=== PATIENT | male | born 1960 | race Caucasian/White ===

== ENCOUNTER 2024-03-19 09:12 | Outpatient (OUT) | payer MEDICARE, SELFPAY ==
[2024-03-19 09:32] LABS: Basophils Percent Auto 0.4 % (0.2-2.0); Eosinophils Absolute Auto 0.2 10^3/uL (0.0-0.7); Eosinophils Percent Auto 2.7 % (0.9-7.0); Hematocrit 43.7 % (42.0-54.0); Hemoglobin 15.4 g/dL (14.0-18.0); Immature Granulocytes Abs Auto 0.05 10^3/uL (0.00-0.03); Immature Granulocytes Pct Auto 0.7 % (0.0-0.5); Lymphocytes Absolute Auto 1.8 10^3/uL (1.2-3.8); Lymphocytes Percent Auto 24.9 % (20.5-60.0); Mean Corpuscular HGB Conc 35.2 g/dL (29.9-35.2); Mean Corpuscular Volume 85.2 fL (80.0-94.0); Mean Platelet Volume 10.3 fL (9.5-13.5); Monocytes Absolute Auto 0.5 10^3/uL (0.3-0.8); Neutrophils Absolute Auto 4.8 10^3/uL (1.4-6.5); Neutrophils Percent Auto 64.3 % (43.0-75.0); Platelet Count 261 10^3/uL (150-450); Red Blood Count 5.13 10^6/uL (4.70-6.10); Red Cell Distribution Width 12.4 % (11.0-15.0); White Blood Count 7.4 10^3/uL (4.0-11.0)
[2024-03-19 09:49] LABS: Estimated Average Glucose 114 mg/dL; Glycohemoglobin A1C 5.6 % (4.5-6.2)
[2024-03-19 11:07] LABS: Alanine Aminotransferase 42 U/L (16-63); Albumin Globulin Ratio 1.2; Albumin Level 3.8 g/dL (3.4-5.0); Alkaline Phosphatase 82 U/L (46-116); Anion Gap 15.6; Aspartate Amino Transferase 22 U/L (15-37); BUN Creatinine Ratio 29.3; Bilirubin Total 0.5 mg/dL (0.2-1.0); Calcium 9.4 mg/dL (8.5-10.1); Carbon Dioxide 26.9 mmol/L (21.0-32.0); Chloride 104 mmol/L (98-107); Chol HDL Ratio 3.6; Cholesterol 196 mg/dL (<=200); Estimated GFR (African America >60 (>=60); Estimated GFR (Non-African Ame >60 (>=60); Globulin 3.2 g/dL; Glucose 95 mg/dL (74-106); HDL Cholesterol 55 mg/dL (40-60); LDL Cholesterol Calculated 129.8 mg/dL; Potassium 3.5 mmol/L (3.5-5.1); Sodium 143 mmol/L (136-145); Thyroid Stimulating Hormone 1.683 uIU/mL (0.358-3.740); Triglycerides 56 mg/dL (<=150); VLDL CHOLESTEROL 11.2 mg/dL
== END 2024-03-19 09:13 | disposition home or self-care (01) ==
LOC: LAB 09:12
PROVIDERS: PCP Family Medicine; Visit Provider Family Medicine
DX: E78.1 Pure hyperglyceridemia (principal); R76.8 Other specified abnormal immunological findings in serum; I10 Essential (primary) hypertension; I69.959 Hemiplegia and hemiparesis following unspecified cerebrovascular disease affecting unspecified side; M19.90 Unspecified osteoarthritis, unspecified site; I48.0 Paroxysmal atrial fibrillation; M1A.00X0 Idiopathic chronic gout, unspecified site, without tophus (tophi); Z12.5 Encounter for screening for malignant neoplasm of prostate; E11.9 Type 2 diabetes mellitus without complications; Z79.899 Other long term (current) drug therapy; Z12.11 Encounter for screening for malignant neoplasm of colon
CPT/HCPCS: 36415; 80053; 80061; 83036; 84436; 84443; 84481; 85025

== ENCOUNTER 2024-03-23 08:42 | Outpatient (REF) | payer MEDICARE, SELFPAY ==
[2024-03-23 11:59] LABS: Internal Control Within Normal Limits; Occult Blood Positive
--- OUTSIDE RECORDS SUMMARY | 2024-03-30 09:05 | XMS_ITS | CCD ---
Author Organization [facility] CliniSyil Care Team Providers Care Chief Procurement Officer Name Role Phone Abril Yeboah MD Primary Care Provider [phone] Milton Alberts MD Unavailable OBINNA ., DR SAMUELS Attending Unavailable PAMELAY ., DR SAMUELS Consulting Unavailable PAMELAY ., DR SAMUELS Primary Care Unavailable PAMELAY ., DR SAMUELS Admitting Unavailable Abril Yeboah MD Primary Care Provider [phone] Milton Alberts MD Unavailable [phone] OBINNA ABRIL Nic Primary Care Unavailable WAZNI, OUSSAMA M Attending Unavailable WAZNI, OUSSAMA M Referring Unavailable HOY, ABRIL M Primary Care Unavailable WAZNI, OUSSAMA M Referring Unavailable HOY, ABRIL M Primary Care Unavailable WAZNI, OUSSAMA M Referring Unavailable HOY, ABRIL M Primary Care Unavailable WAZNI, OUSSAMA M Referring Unavailable WAZNI, OUSSAMA M Referring Unavailable HOY, ABRIL M Primary Care Unavailable WAZNI, OUSSAMA M Referring Unavailable WASSIPriyanka, HEBRENDA Attending Unavailable HOY, ABRIL M Primary Care Unavailable WAZNI, OUSSAMA M Referring Unavailable HOY, ABRIL M Primary Care Unavailable HOY, ABRIL M Primary Care Unavailable WAZNI, OUSSAMA M Attending Unavailable HOY, ABRIL M Primary Care Unavailable WAZNI, OUSSAMA M Referring Unavailable WAZNI, OUSSAMA M Admitting Unavailable WAZNI, OUSSAMA M Attending Unavailable HOY, ABRIL M Primary Care Unavailable HOY, ABRIL M Primary Care Unavailable WAZNI, OUSSAMA M Referring Unavailable KERLINE LINK Referring Unavailable AJ DELAROSA Attending Unavailable KERLINE LINK Referring Unavailable IOANA MUÑIZ Attending Unavailable Allergies Allergy Classification Reported Allergen(s) Allergy Type Date of Onset Reaction(s) Facility (3 sources) Angiotensin-conve rting enzyme inhibitor agent; Translations: [BRYNN INHIBITORS] Drug Allergy 1 Swelling [facility] (20 sources) Lobster - dietary; Translations: [LOBSTER (CRUSTACEANS)] Food Allergy 4 Unknown [facility] (20 sources) Amino Acids; Translations: [AMINO ACIDS] Drug Allergy 2 Other: See Comments [facility] (20 sources) Angiotensin-conve rting enzyme inhibitor agent Drug Allergy 1 Swelling [facility] (20 sources) Ciprofloxacin; Translations: [CIPROFLOXACIN] Drug Allergy 2 Other: See Comments [facility] (1 source) Amino Acids Drug Allergy 2 [facility] (1 source) Angiotensin Converting Enzyme (Brynn) Inhibitors Drug allergy (disorder) 1 [facility] (1 source) Ciprofloxacin Drug Allergy 2 [facility] Medications Current Medications Medication Drug Class(es) Dates Sig (Normalized) Sig (Original) perflutren lipid microspheres 1.3 mL in NaCl (PF) 0.9% 10 mL injection (DEFINITY) (18 sources) Start: 06-26-2022 End: 09-25-2023 perflutren lipid microspheres 1.3 mL in NaCl (PF) 0.9% 10 mL injection (DEFINITY) 125 ml sodium chloride 9 mg/ml prefilled syringe (20 sources) Start: 05-14-2022 End: 10-04-2023 sodium chloride 0.9 %, flush, (BD POSIFLUSH) syringe Indications: Atrial fibrillation, persistent (HCC) Inject 2-10 mL intravenously as directed. For Echo procedure 10 mL 0 10/04/2022 10/04/2023 Active Comment on above: Inject 2-10 mL intra venously as directed. For Echo procedure Completed/Discontinued Medications Medication Drug Class(es) Dates Sig (Normalized) Sig (Original) apixaban 5 mg oral tablet (20 sources) Factor Xa Inhibitor Start: 01-05-2022 End: 10-04-2022 take 1 tablet by mouth twice daily ELIQUIS 5 mg tab(s) TAKE 1 TABLET BY MOUTH TWICE A DAY 60 tablet 01/05/2022 10/04/2022 Discontinued (Clinical Decision) Comment on above: TAKE 1 TABLET BY WOLFGANG TH TWICE A DAY aspirin 81 mg delayed release oral tablet (20 sources) Platelet Aggregation Inhibitor, Nonsteroidal Anti-inflammatory Drug Start: 06-25-2022 End: 08-14-2022 take 1 tablet by mouth once daily aspirin, enteric coated (ECOTRIN LOW STRENGTH) 81 mg EC tablet Take 1 tablet by mouth once daily. 50 tablet 0 06/25/2022 Active Comment on above: Take 1 tablet by wolfgang th once daily. atenolol 50 mg oral tablet (20 sources) beta-Adrenergic Kirk take 1 tablet by mouth twice daily atenolol 50 mg tablet Take 50 mg by mouth twice daily. 0 Active Comment on above: Take 50 mg by mouth twice daily. cholecalciferol 0.125 mg oral tablet (20 sources) Vitamin D take 1 tablet by mouth once daily cholecalciferol (VITAMIN D3) 5,000 unit tab Take 5,000 Units by mouth once daily. 0 Active Comment on above: Take 5,000 Units by mouth once daily. diazePAM 5 mg oral tablet (20 sources) Benzodiazepine Start: 04-16-2022 diazePAM (VALIUM) 5 mg tablet For flying 0 04/16/2022 Active Comment on above: For flying glucosamine/chondr christiansen A sod (OSTEO BI-FLEX ORAL) (20 sources) glucosamine/shawanda dr christiansen A sod (OSTEO BI-FLEX ORAL) Take by mouth once daily. 0 Active Comment on above: Take by mouth once d aily. hydrALAZINE hydrochloride 50 mg oral tablet (20 sources) Arteriolar Vasodilator Start: 01-29-2022 End: 11-28-2022 hydrALAZINE (APRESOLINE) 50 mg tablet TAKE 1 TABLET THREE TIMES DAILY 270 tablet 3 11/28/2022 Active End: 01-29-2022 take 1 tablet by mouth three times daily hydrALAZINE 25 mg tablet Take 25 mg by mouth three times daily. 0 01/29/2022 Discontinued Comment on above: Take 25 mg by mouth three times daily. Take 1 tablet by wolfgang th three times daily. TAKE 1 TABLET THREE TIMES DAILY hydroCHLOROthiazide 25 mg oral tablet (20 sources) Thiazide Diuretic take 1 tablet by mouth once daily hydrochlorothiazide 25 mg tablet Take 25 mg by mouth once daily. 0 Active Comment on above: Take 25 mg by mouth once daily. Magnesium (2 sources) Magnesium 250 mg tab Take 250 mg by mouth. 0 Active Comment on above: Take 250 mg by mouth . magnesium oxide 250 mg oral tablet (20 sources) End: 04-16 Magnesium Oxide 250 mg magnesium tab Take 1 tablet by mouth. 0 04/16/2023 Discontinued Comment on above: Take 1 tablet by wolfgang th. omeprazole 20 mg delayed release oral capsule (20 sources) Proton Pump Inhibitor Start : 05-02 take 1 capsule by mouth once daily omeprazole (PRILOSEC) 20 mg capsule Take 20 mg by mouth once daily. 0 05/02/2021 Active Comment on above: Take 20 mg by mouth once daily. pantoprazole 20 mg delayed release oral tablet (15 sources) Proton Pump Inhibitor Start : 06-26 End: 10-04 take 1 tablet by mouth once daily, then take 6 tablets by mouth in the morning pantoprazole DR (PROTONIX) 20 mg tablet Take 1 tablet by mouth DAILY (6 AM). 30 tablet 2 06/26/2022 10/04/2022 Discontinued Comment on above: Take 1 tablet by wolfgang th DAILY (6 AM). sildenafil 100 mg oral tablet (20 sources) Phosphodiesterase 5 Inhibitor Start : 01-16 sildenafil (VIAGRA) 100 mg tablet TAKE HALF(1/2) OR ONE(1) TABLET BY MOUTH 30-60 MINUTES PRIOR TO SEXUAL ACTIVITY 0 01/16/2022 Active Comment on above: TAKE HALF(1/2) OR ON E(1) TABLET BY MOUTH 30-60 MINUTES PRIOR TO SEXUAL ACTIVITY 24 hr verapamil hydrochloride 240 mg extended release oral capsule (20 sources) Calcium Channel Kirk take 1 capsule by mouth once daily at bedtime Verapamil SR 240 mg 24 hr capsule Take 240 mg by mouth daily at bedtime. 0 Active Comment on above: Take 240 mg by mouth daily at bedtime. zolpidem tartrate 10 mg oral tablet (20 sources) gamma-Aminobutyric Acid-ergic Agonist take 5 mg by mouth once daily at bedtime zolpidem (AMBIEN) 10 mg Take 5 mg by mouth daily at bedtime. 0 Active Comment on above: Take 5 mg by mouth d aily at bedtime. Problems Problem Classification Problem Date Documented Date Episodic/Chronic Acute cerebrovascular disease (20 sources) Occlusion of cerebral artery with stroke; Translations: [Cerebral infarction due to unspecified occlusion or stenosis of unspecified cerebral artery] Onset: 01-26-2005 06-07-2014 Chronic Cardiac dysrhythmias (20 sources) Paroxysmal atrial fibrillation; Translations: [Paroxysmal atrial fibrillation] Onset: 11-23-2013 Chronic Essential hypertension (20 sources) Essential hypertension; Translations: [Essential (primary) hypertension] Onset: 11-23-2013 Chronic Late effects of cerebrovascular disease (20 sources) Sequela of cerebrovascular accident; Translations: [Hemiplegia and hemiparesis following cerebral infarction affecting unspecified side] Onset: 02-17-2014 10-23-2021 Chronic Unclassified (1 source) Other persistent atrial fibrillation; Translations: [Persistent atrial fibrillation (HCC)] Onset: 12-13-2021 Results Test Name Value Interpretation Reference Range Facility Physician Referralon [id number] Physician Referral [id number] IFF Normal [facility] [place] 04-26-2023 CNPN Telephone (CARDMN) MILTON FRIEND ([id number]) 1960 M Date Time Provider Department 04/26/23 ODESSA TERRY CARDMN During your visit today, we recorded the following information about you: Karla Rausch 04/26/2023 11:26 AM Signed April 26, 2023 Patient Contact Number: [phone] (home) [phone] (cell) Patient last seen within the last year Yes Reason For Call: Medication Issue/Question: Patient is calling. He wanted to know when he should stop taking his Asprin, he will be having a procedure done on May 08. Please call and advise patient at the above number. Karla Greenwood RN 04/29/2023 5:[address] Terry reviewed JOSE again to assess Watchman leak. OK to hold aspirin for procedure and resume afterwards. Joy Greenwood RN Allergies As of Date: 04/26/2023 Noted Allergy Reaction BRYNN INHIBITORS 10/05/2021 7 - Swelling AMINO ACIDS 01/05/2022 14 - Other: See Comments CIPROFLOXACIN 01/05/2022 14 - Other: See Comments LOBSTER (CRUSTACEANS) 11/23/2013 16 - Unknown Date Reviewed: 04/16/2023 Reviewed by: Carina Larkin RN - Fully Assessed Reason for Visit: Patient Question [2197] Cmt: Asprin Prescriptions as of 04/29/2023 - Magnesium 250 mg tab Take 250 mg by mouth. - hydrALAZINE (APRESOLINE) 50 mg tablet TAKE 1 TABLET THREE TIMES DAILY - sodium chloride 0.9 %, flush, (BD POSIFLUSH) syringe Inject 2-10 mL intravenously as directed. For Echo procedure - aspirin, enteric coated (ECOTRIN LOW STRENGTH) 81 mg EC tablet Take 1 tablet by mouth once daily. - diazePAM (VALIUM) 5 mg tablet For flying - sildenafil (VIAGRA) 100 mg tablet TAKE HALF(1/2) OR ONE(1) TABLET BY MOUTH 30-60 MINUTES PRIOR TO SEXUAL ACTIVITY - glucosamine/chondr christiansen A sod (OSTEO BI-FLEX ORAL) Take by mouth once daily. - cholecalciferol (VITAMIN D3) 5,000 unit tab Take 5,000 Units by mouth once daily. - omeprazole (PRILOSEC) 20 mg capsule Take 20 mg by mouth once daily. - hydrochlorothiazide 25 mg tablet Take 25 mg by mouth once daily. - zolpidem (AMBIEN) 10 mg Take 5 mg by mouth daily at bedtime. - atenolol 50 mg tablet Take 50 mg by mouth twice daily. - Verapamil SR 240 mg 24 hr capsule Take 240 mg by mouth daily at bedtime. Facility-Administered Medications as of 04/29/2023 - perflutren lipid microspheres 1.3 mL in NaCl (PF) 0.9% 10 mL injection (DEFINITY) - sodium chloride 0.9 % (flush) 10 mL (BD POSIFLUSH) Problem List As Of Date 04/26/2023 Noted Resolved Persistent atrial fibrillation (HCC) [I48.19] 11/23/2013 HTN (hypertension) [I10] 11/23/2013 Hemiparesis and other late effects of cerebrova*02/17/2014 Unspecified cerebral artery occlusion with cere*06/07/2014 Stroke due to intracerebral hemorrhage (HCC) [I*01/26/2005 Atrial fibrillation (HCC) [I48.91] 06/25/2022 Encounter Status:Closed by JOY GREENWOOD RN on 04/29/23 [facility] CNOVon 04-16-2023 CNOV Office Visit (CARDMN ) MILTON FRIEND ([id number]) 1960 Date Time Provider Department 04/16/23 10:30 AM ODESSA TERRY During your visit today, we recorded the following information about you: Pulse Blood pressure Weight Height 79/minute 129/83 97.5 kg 1.689 m Odessa Terry MD 04/16/2023 10:53 AM Addendum [facility] [place] [facility] Department of Cardiovascular Medicine SECTION OF CARDIAC PACING and ELECTROPHYSIOLOGY OUTPATIENT VISIT DATE April 16, 2023 OUTPATIENT VISIT TYPE ESTABLISHED PRIMARY CARE PHYSICIAN: Abril Yeboah [address] [place] [address] CHIEF COMPLAINT: AF HISTORY OF PRESENT ILLNESS/NURSING INTAKE HISTORY: Mr. Friend is a 63 year old male who presents today for follow-up visit s/p concomitant Watchman + PVI on 06/26/22. He history of recurrent, persistent symptomatic atrial fibrillation. Watchman indication was prior intracranial hemorrhage. He has a [id number] score of 3 for hypertension and prior stroke. He underwent Watchman + PVI 06/26/2022. He was last seen in office 10/04/2022 and JOSE showed minimal flow with no clear tract into the appendage. His Eliquis was stopped at his last visit. JOSE today showed EF=60%; Small infero-posterior leak remains (2.6mm x 2.4mm). He reports he may have had a couple of episodes of atrial fibrillation 3-4 months ago which lasted around 2 hours. He reports he went out of rhythm Saturday morning and believes he has been out since. He reports he felt more fatigued and had racing heartbeats. He endorses shortness of breath with exertion when he is out of rhythm. He denies chest pain, lightheadedness or syncope. He would like clearance for rotator cuff surgery. 1. How often on average, does your irregular heart rhythm (atrial fibrillation) occur? About once a year 2. How long on average, do the episodes of the irregular heart rhythm last? Several days or more 3. How often have you been bothered by this symptom in the past 4 weeks? Palpitations: a lot, Shortness of breath at rest: none, Shortness of breath during physical activity: very little, Exercise intolerance (fatigue during mild physical activity): a fair amount, Fatigue at rest: very little, and Lightheadedness/dizzine ss: none 4. Have you had an inpatient hospital admission within 30 days of your procedure? No 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) 01/26/2005 Right thalamic and right internal capsule hemorrhage on asa at the time., unsure of dose PAST SURGICAL HISTORY Procedure Laterality Date CARDIAC CATH 10/28/2003 CARDIOVERSION 05/31/2021 CARDIOVERSION 12/13/2021 OPEN REPAIR OF ROTATOR CUFF ACUTE 10/28/2003 Rotator cuff repair right x 2 PAST SURGICAL HISTORY OF 06/26/2022 Watchman and PVI SOCIAL HISTORY Social History Tobacco Use Smoking status: Never Smokeless tobacco: Never Vaping Use Vaping Use: Never used Substance Use Topics Alcohol use: Yes Comment: social, sips a couple times a week Drug use: No FAMILY HISTORY Problem Relation Age of Onset Coronary Artery Disease Mother PPM Diabetes Mother Hyperlipidemia Mother Hypertension Mother Cancer Mother multiple Heart Father afib, stroke Stroke Father hemorrhagic stroke No Known Problems Sister ALLERGIES: ALLERGIES Allergen Reactions Brynn Inhibitors Swelling Amino Acids Other: See Comments Ciprofloxacin Other: See Comments Lobster (Crustacean* Unknown MEDICATIONS: Magnesium 250 mg tabTake 250 mg by mouth.Disp: Rfl: hydrALAZINE (APRESOLINE) 50 mg tabletTAKE 1 TABLET THREE TIMES DAILYDisp: 270 tabletRfl: 3 aspirin, enteric coated (ECOTRIN LOW STRENGTH) 81 mg EC tabletTake 1 tablet by mouth once daily.Disp: 50 tabletRfl: 0 diazePAM (VALIUM) 5 mg tabletFor flyingDisp: Rfl: sildenafil (VIAGRA) 100 mg tabletTAKE HALF(1/2) OR ONE(1) TABLET BY MOUTH 30-60 MINUTES PRIOR TO SEXUAL ACTIVITYDisp: Rfl: glucosamine/chondr christiansen A sod (OSTEO BI-FLEX ORAL)Take by mouth once daily.Disp: Rfl: cholecalciferol (VITAMIN D3) 5,000 unit tabTake 5,000 Units by mouth once daily.Disp: Rfl: omeprazole (PRILOSEC) 20 mg capsuleTake 20 mg by mouth once daily. Disp: Rfl: hydrochlorothiazide 25 mg tabletTake 25 mg by mouth once daily.Disp: Rfl: zolpidem (AMBIEN) 10 mgTake 5 mg by mouth daily at bedtime. Disp: Rfl: atenolol 50 mg tabletTake 50 mg by mouth twice daily.Disp: Rfl: Verapamil SR 240 mg 24 hr capsuleTake 240 mg by mouth daily at bedtime.Disp: Rfl: sodium chloride 0.9 %, flush, (BD POSIFLUSH) syringeInject 2-10 mL intravenously as directed. For E (more content not included)... Normal [facility] CNOV Office Visit (CAFLMN ) MILTON FRIEND ([id number]) 1960 M Date Time Provider Department 04/16/23 6:45 AM TRANSESOPHAGEAL ECHO CARD MAINCAFLMN During your visit today, we recorded the following information about you: Temperature Pulse Respiration Blood pressure 98.1 degrees 74/minute 14/minute 120/80 Jori Lopez RN 04/16/2023 10:23 AM Signed AMBULATORY PATIENT EDUCATION TOPIC: JOSE READINESS TO LEARN COGNITIVE ABILITY: Alert and oriented MOTIVATION TO LEARN: Eager Interested FAMILY SUPPORT: Unable to assess - Family not present INSTRUCTION PROVIDED TO: Patient PATIENT LEARNS BEST BY: Individual Instruction Verbal Instruction FACTORS AFFECTING LEARNING: None PHYSICAL LIMITATIONS AFFECTING LEARNING: None LEARNING RESPONSE DIAGNOSIS: Watchman f/u METHOD OF INSTRUCTION: Individual instruction Verbal instruction PATIENT / FAMILY RESPONSE: Verbalizes understanding of: POST-PROCEDURE INSTRUCTIONS-Correct actions to take to reduce post procedure complications PRE-PROCEDURE INSTRUCTIONS-Correct action to take to follow pre-procedure instructions FOLLOW-UP PLAN: Complete - No need for follow-up SUPPLEMENTAL MATERIAL: Post JOSE instructions given Post sedation instructions given REFERRAL (RECOMMENDATION): None Electronically Signed By Jori Lopez RN In Department: CARDIOLOGY Referring Provider: ODESSA TERRY [[id number]] Allergies As of Date: 04/16/2023 Noted Allergy Reaction BRYNN INHIBITORS 10/05/2021 7 - Swelling AMINO ACIDS 01/05/2022 14 - Other: See Comments CIPROFLOXACIN 01/05/2022 14 - Other: See Comments LOBSTER (CRUSTACEANS) 11/23/2013 16 - Unknown Date Reviewed: 04/16/2023 Reviewed by: Carina Larkin RN - Fully Assessed Primary Visit Diagnosis:Atrial fibrillation, unspecified type (HCC) [I48.91] Order(s):[] benzocaine 20% (TOPEX)Disp: Rfl: [] fentaNYL 50 mcg/mL injection (SUBLIMAZE)Disp: Rfl: [] midazolam (PF) injection (VERSED)Disp: Rfl: Prescriptions as of 04/16/2023 - Magnesium 250 mg tab Take 250 mg by mouth. - hydrALAZINE (APRESOLINE) 50 mg tablet TAKE 1 TABLET THREE TIMES DAILY - sodium chloride 0.9 %, flush, (BD POSIFLUSH) syringe Inject 2-10 mL intravenously as directed. For Echo procedure - aspirin, enteric coated (ECOTRIN LOW STRENGTH) 81 mg EC tablet Take 1 tablet by mouth once daily. - diazePAM (VALIUM) 5 mg tablet For flying - sildenafil (VIAGRA) 100 mg tablet TAKE HALF(1/2) OR ONE(1) TABLET BY MOUTH 30-60 MINUTES PRIOR TO SEXUAL ACTIVITY - glucosamine/chondr christiansen A sod (OSTEO BI-FLEX ORAL) Take by mouth once daily. - cholecalciferol (VITAMIN D3) 5,000 unit tab Take 5,000 Units by mouth once daily. - omeprazole (PRILOSEC) 20 mg capsule Take 20 mg by mouth once daily. - hydrochlorothiazide 25 mg tablet Take 25 mg by mouth once daily. - zolpidem (AMBIEN) 10 mg Take 5 mg by mouth daily at bedtime. - atenolol 50 mg tablet Take 50 mg by mouth twice daily. - Verapamil SR 240 mg 24 hr capsule Take 240 mg by mouth daily at bedtime. Facility-Administered Medications as of 04/16/2023 - perflutren lipid microspheres 1.3 mL in NaCl (PF) 0.9% 10 mL injection (DEFINITY) - sodium chloride 0.9 % (flush) 10 mL (BD POSIFLUSH) Problem List As Of Date 04/16/2023 Noted Resolved Persistent atrial fibrillation (HCC) [I48.19] 11/23/2013 HTN (hypertension) [I10] 11/23/2013 Hemiparesis and other late effects of cerebrova*02/17/2014 Unspecified cerebral artery occlusion with cere*06/07/2014 Stroke due to intracerebral hemorrhage (HCC) [I*01/26/2005 Atrial fibrillation (HCC) [I48.91] 06/25/2022 Prescriptions ordered this encounter Disp Refills Start End BENZOCAINE 20% TOPICAL SPRAY 04/16/2023 04/16/2023 Route: TOPICAL FENTANYL (PF) 50 MCG/ML INJECTION SO* 04/16/2023 04/16/2023 Route: INTRAVENOUS MIDAZOLAM (PF) 1 MG/ML INJECTION SONAL* 04/16/2023 04/16/2023 Route: INTRAVENOUS Encounter Status:Closed by ROBYN SMILEY on 04/16/23 Normal [facility] ECG COMPLETEon 04-16-2023 ECG COMPLETE Ventricular Rate : 7 9 BPM QRS Duration : 102 ms Q-T Interval : 410 ms QTC Calculation(Bazett) : 470 ms Calculated R [place] : -24 degrees Calculated T [place] : -22 degrees ATRIAL FIBRILLATION INCOMPLETE RIGHT BUNDLE BRANCH BLOCK INFERIOR MYOCARDIAL INFARCTION , AGE UNDETERMINED ABNORMAL ECG Confirmed by MD DEWEY, PhD, GERMÁN ([id number]) on 04/20/2023 4:35:06 PM NAME : MILTON FRIEND PID : [id number] : 1960 Gender : Male Race : ORD : [id number] Procedure Date : Apr 16 2023 09:57:16 Edit Date : Apr 20 2023 16:35:12 Diagnosis: ATRIAL FIBRILLATION INCOMPLETE RIGHT BUNDLE BRANCH BLOCK INFERIOR MYOCARDIAL INFARCTION , AGE UNDETERMINED ABNORMAL ECG Confirmed by MD DEWEY, PhD, GERMÁN ([id number]) on 04/20/2023 4:35:06 PM Test Reason : Location : 314 : J14 J1-4 Overread By : MD DEWEY, PhD,GERMÁN Edited By : MD DEWEY, PhD,GERMÁN Referred By : ODESSA TERRY Acquired by : TIA WARREN [facility] ECHO TRANSESOPHAGEALon 04-16 ECHO TRANSESOPHAGEAL Echocardiography Report: Transesophageal Echo [facility] J1-5 Date of service: 04/16/2023 7:43:42 AM 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 Medications Total Dose Versed 4.00 mg Fentanyl 100.00 mcg Agitated Saline 10.00 ml Exam performed under moderate sedation with continuous ECG, pulse oximetry and cardiopulmonary monitoring by nursing, overseen by the performing physician(s), for an intraservice time of 21 min. Patient tolerated procedure well; no complications. (Stop Time: 8:25am) No specimens collected. No blood loss. The interpreting physician was present for and actively participated in the JOSE procedure. MEASUREMENTS: Value Normal Max aortic dimension 3.7 cm Ao < 3.8 Left atrium diameter 0.2 cm (2D) LAd < 4 Ejection Fraction 60 % (visual est.) EF > 52 FINDINGS: LEFT VENTRICLE The left ventricle is normal in size. Left ventricular systolic function is normal. RIGHT VENTRICLE The right ventricle is normal in size. Right ventricular systolic function is normal. LEFT ATRIUM The left atrial cavity is normal in size. Pulmonary Veins: The pulmonary venous pattern showed blunted systolic flow. RIGHT ATRIUM The right atrial cavity is normal in size. The eustachian valve appears prominent. MITRAL VALVE There is trace (trace - 1+) mitral valve regurgitation. There is mild thickening. 3D echocardiographic multi-planar reconstruction of the mitral valve was performed to assess anatomy and function. TRICUSPID VALVE The tricuspid valve leaflets are structurally normal. There is trace tricuspid valve regurgitation. 3D echocardiographic multi-planar reconstruction of the tricuspid valve was performed to assess anatomy and function. AORTIC VALVE There is no aortic valve regurgitation. Tricuspid aortic valve. There is mild thickening. 3D echocardiographic multi-planar reconstruction of the aortic valve was performed to assess anatomy and function. PULMONIC VALVE The pulmonic valve cusps are structurally normal. There is trace pulmonic valve regurgitation. AORTA The visualized aorta is normal in size. Measurements - Sinus: 3.7 cm. Mid ascending aorta 3.6 cm. INTERATRIAL SEPTUM The interatrial septum is normal. There is no patent foramen ovale as detected by Doppler and agitated saline contrast. PERICARDIUM There is no pericardial effusion. CONCLUSIONS: - Exam indication: Watchman Assessment - The left ventricle is normal in size. Left ventricular systolic function is normal. EF = 60 5% (visual est.) - The right ventricle is normal in size. Right ventricular systolic function is normal. - There is no patent foramen ovale as detected by Doppler and agitated saline contrast. - Status post Watchman FLX 24 device. Small infero-posterior leak remains (2.6mm x 2.4mm). - Exam was compared with the prior CC echocardiographic exam performed on 10/04/22. Similar findings. Small ara-device leak better appreciated on today's study. Patient is in atrial fibrillation. * * * Final * * * CC [employer] : [id number] [id number] Normal [facility] NURSING PROGon 04-16-2023 NURSING PROG HNO ID: [id number] Author: Jori Lopez RN Service: ? Author Type: Registered Nurse Type: Nursing Progress Note Filed: 04/16/2023 10:23 AM Note Text: AMBULATORY PATIENT EDUCATION TOPIC: JOSE READINESS TO LEARN COGNITIVE ABILITY: Alert and oriented MOTIVATION TO LEARN: Eager Interested FAMILY SUPPORT: Unable to assess - Family not present INSTRUCTION PROVIDED TO: Patient PATIENT LEARNS BEST BY: Individual Instruction Verbal Instruction FACTORS AFFECTING LEARNING: None PHYSICAL LIMITATIONS AFFECTING LEARNING: None LEARNING RESPONSE DIAGNOSIS: Watchman f/u METHOD OF INSTRUCTION: Individual instruction Verbal instruction PATIENT / FAMILY RESPONSE: Verbalizes understanding of: POST-PROCEDURE INSTRUCTIONS-Correct actions to take to reduce post procedure complications PRE-PROCEDURE INSTRUCTIONS-Correct action to take to follow pre-procedure instructions FOLLOW-UP PLAN: Complete - No need for follow-up SUPPLEMENTAL MATERIAL: Post JOSE instructions given Post sedation instructions given REFERRAL (RECOMMENDATION): None Electronically Signed By Jori Lopez RN In Department: CARDIOLOGY Normal [facility] 04-15-2023 [facility] MILTON FRIEND ([id number]) 1960 M Date Time Provider Department 04/15/23 ROBYN SMILEY During your visit today, we recorded the following information about you: Robyn Smiley RN 04/15/2023 1:46 PM Signed ECHO LAB TELEPHONE INSTRUCTIONS: Learning Response: Instructions provided to: Patient Procedure: JOSE Pre procedure education topics: Arrival time, NPO status, Medications, and Accompanied by a responsible adult Instructions/Restrictio ns Patient/Family Response Evaluation: Verbalizes understanding Follow Up Plan and Medication: As directed by physician Instruction/Supplementa l Material Given: Appointment Information and Procedure/Test Specific Information: Transesphageal Echocardiogram-JOSE Instructed By Robyn Smiley RN. In Department of CARDIOLOGY. Allergies As of Date: 04/15/2023 Noted Allergy Reaction BRYNN INHIBITORS 10/05/2021 7 - Swelling AMINO ACIDS 01/05/2022 14 - Other: See Comments CIPROFLOXACIN 01/05/2022 14 - Other: See Comments LOBSTER (CRUSTACEANS) 11/23/2013 16 - Unknown Date Reviewed: 10/04/2022 Reviewed by: Andry Peterson RN - Fully Assessed Reason for Visit: Reminder Call [[id number]] Cmt: Transesophageal Echo 04/16/23 Prescriptions as of 04/15/2023 - hydrALAZINE (APRESOLINE) 50 mg tablet TAKE 1 TABLET THREE TIMES DAILY - sodium chloride 0.9 %, flush, (BD POSIFLUSH) syringe Inject 2-10 mL intravenously as directed. For Echo procedure - aspirin, enteric coated (ECOTRIN LOW STRENGTH) 81 mg EC tablet Take 1 tablet by mouth once daily. - diazePAM (VALIUM) 5 mg tablet For flying - sildenafil (VIAGRA) 100 mg tablet TAKE HALF(1/2) OR ONE(1) TABLET BY MOUTH 30-60 MINUTES PRIOR TO SEXUAL ACTIVITY - glucosamine/chondr christiansen A sod (OSTEO BI-FLEX ORAL) Take by mouth once daily. - cholecalciferol (VITAMIN D-3) 5,000 unit tab Take 5,000 Units by mouth once daily. - Magnesium Oxide 250 mg magnesium tab Take 1 tablet by mouth. - omeprazole (PRILOSEC) 20 mg capsule Take 20 mg by mouth once daily. - hydrochlorothiazide 25 mg tablet Take 25 mg by mouth once daily. - zolpidem (AMBIEN) 10 mg tab Take 5 mg by mouth daily at bedtime. - atenolol 50 mg tablet Take 50 mg by mouth twice daily. - Verapamil SR 240 mg 24 hr capsule Take 240 mg by mouth daily at bedtime. Facility-Administered Medications as of 04/15/2023 - perflutren lipid microspheres 1.3 mL in NaCl (PF) 0.9% 10 mL injection (DEFINITY) - sodium chloride 0.9 % (flush) 10 mL (BD POSIFLUSH) Problem List As Of Date 04/15/2023 Noted Resolved Persistent atrial fibrillation (HCC) [I48.19] 11/23/2013 HTN (hypertension) [I10] 11/23/2013 Hemiparesis and other late effects of cerebrova*02/17/2014 Unspecified cerebral artery occlusion with cere*06/07/2014 Stroke due to intracerebral hemorrhage (HCC) [I*01/26/2005 Atrial fibrillation (HCC) [I48.91] 06/25/2022 Encounter Status:Closed by ROBYN SMILEY on 04/15/23 Normal [facility] ALAN by IFAon 03-13-2023 Antinuclear Antibodies, IFA Positive Abnormal [facility] Comment on above: Result Comment: Nega tive <1:80 Borderline 1:80 Positive >1:80 Performed By: #### A NAIFA #### [facility] [address] [address] [address] Hortencia Conley ANTISTREPTOLYSIN O AB (ASO)o n 03-13-2023 Antistreptolysin O Ab 23.5 IU/mL Normal 0.0-200.0 [facility] Comment on above: Performed By: #### A SOAB #### [facility] [address] [place] [address] Dr. Hortencia Conley INSULINon 03-13-2023 Insulin 12.6 uIU/mL Normal 2.6-24.9 [facility] Comment on above: Performed By: #### C RP #### [facility] [address] [place] [address] Dr. Hortencia Conley RHEUMATOID FACTORon 03-13-20 RA Latex Turbid. <10.0 Normal <14.[address] [facility] Comment on above: Performed By: #### R F #### [facility] [address] [place] [address] Dr. Hortencia Conley TESTOSTERONE, TOTALon 2022 Testosterone [Mass/Vol] 394 ng/dL Normal 264-916 [facility] Comment on above: Result Comment: Adul t male reference interval is based on a population of healthy nonobese males (BMI <30) between 19 and 39 years old. Shabnam et.al. JCEM 2017,102;9978-6731. PMID: [id number]. Performed By: #### T ESTTOT #### [facility] [address] [place] [address] Dr. Hortencia Conley CBC AUTO DIFFon 03-12-2023 BASO # 0.1 103/ul Normal 0.0-0.1 [facility] Comment on above: Performed By: #### C RP #### [facility] [address] [place] [address] Dr. Hortencia Conley Basophils/100 WBC (Bld) 0.9 % Normal 0.2-2.0 [facility] Comment on above: Performed By: #### C RP #### [facility] [address] [place] [address] Dr. Hortencia Conley EO # 0.3 103/ul Normal 0.0-0.7 [facility] Comment on above: Performed By: #### C RP #### [facility] [address] [place] [address] Dr. Hortencia Conley Eosinophils/100 WBC (Bld) 3.6 % Normal 0.9-7.0 [facility] Comment on above: Performed By: #### C RP #### [facility] [address] [place] [address] Dr. Hortencia Conley Erythrocyte distribution width (RBC) [Ratio] 12.9 % Normal 11.0-15.0 [facility] Comment on above: Performed By: #### C RP #### [facility] [address] [place] [address] Dr. Hortencia Conley Hematocrit (Bld) [Volume fraction] 45.6 % Normal 42.0-54.0 [facility] Comment on above: Performed By: #### C RP #### [facility] [address] [place] [address] Dr. Hortencia Conley Hemoglobin (Bld) [Mass/Vol] 15.9 g/dL Normal 14.0-18.0 [facility] Comment on above: Performed By: #### C RP #### [facility] [address] [place] [address] Dr. Hortencia Conley IG # 0.05 10e3/ul Critically high 0.00-0.03 [facility] Comment on above: Performed By: #### C RP #### [facility] [address] [place] [address] Dr. Hortencia Conley IG % 0.7 % Critically high 0.0-0.5 [facility] Comment on above: Performed By: #### C RP #### [facility] [address] [place] [address] Dr. Hortencia Conley LYMPH # 2.0 103/ul Normal 1.2-3.8 [facility] Comment on above: Performed By: #### C RP #### [facility] [address] [place] [address] Dr. Hortencia Conley Lymphocytes/100 WBC (Bld) 29.0 % Normal 20.5-60.0 [facility] Comment on above: Performed By: #### C RP #### [facility] [address] [place] [address] Dr. Hortencia Conley MANUAL DIFF REQ NO Normal [facility] Comment on above: Performed By: #### C RP #### [facility] [address] [place] [address] Dr. Hortencia Conley MCH (RBC) [Entitic mass] 29.6 pg Normal 25.9-34.0 [facility] Comment on above: Performed By: #### C RP #### [facility] [address] [place] [address] Dr. Hortencia Conley MCHC (RBC) [Mass/Vol] 34.9 g/dL Normal 29.9-35.2 [facility] Comment on above: Performed By: #### C RP #### [facility] [address] [place] [address] Dr. Hortencia Conley MCV (RBC) [Entitic vol] 84.8 fL Normal 80.0-94.0 [facility] Comment on above: Performed By: #### C RP #### [facility] [address] [place] [address] Dr. Hortencia Conley MONO # 0.6 103/ul Normal 0.3-0.8 [facility] Comment on above: Performed By: #### C RP #### [facility] [address] [place] [address] Dr. Hortencia Conley Monocytes/100 WBC (Bld) 8.8 % Normal 1.7-12.0 [facility] Comment on above: Performed By: #### C RP #### [facility] [address] [place] [address] Dr. Hortencia Conley NEUT # 4.0 103/ul Normal 1.4-6.5 [facility] Comment on above: Performed By: #### C RP #### [facility] [address] [place] [address] Dr. Hortencia Conley Neutrophils/100 WBC (Bld) 57.0 % Normal 43.0-75.0 [facility] Comment on above: Performed By: #### C RP #### [facility] [address] [place] [address] Dr. Hortencia Conley Platelet mean volume (Bld) [Entitic vol] 10.1 fL Normal 9.5-13.5 [facility] Comment on above: Performed By: #### C RP #### [facility] [address] [place] [address] Dr. Hortencia Conley PLT 241 103/ul Normal 150-450 [facility] Comment on above: Performed By: #### C RP #### [facility] [address] [place] [address] Dr. Hortencia Conley RBC 5.38 106/ul Normal 4.70-6.10 [facility] Comment on above: Performed By: #### C RP #### [facility] [address] [place] [address] Dr. Hortencia Conley WBC 7.0 103/ul Normal 4.0-11.0 [facility] Comment on above: Performed By: #### C RP #### [facility] [address] [place] [address] Dr. Hortencia Conley CRPon 03-12-2023 CRP [Mass/Vol] mg/L Normal <=1.0 [facility] Comment on above: Performed By: #### C RP #### [facility] [address] [place] [address] Dr. Hortencia Conley FREE T3on 03-12-2023 FREE T3 3.28 pg/mlL Normal 2.18-3.98 [facility] Comment on above: Performed By: #### T 4, FT3, TSH, CMP, URIC, LIPID #### [facility] [address] [place] [address] Dr. Hortencia Conley GLYCOHEMOGLOBIN A1Con 2022 ADA RECOMMENDATION SEE BELOW Normal [facility] Comment on above: Result Comment: ADA RECOMMENDED LIMIT 4.0 - 6.0 ADA THERAPEUTIC TARGET < 7.0 ACTION SUGGESTED > 7.0 Performed By: #### A 1C #### [facility] [address] [place] [address] Dr. Hortencia Conley Glucose [Mass/Vol] 108 mg/dL Normal [facility] Comment on above: Performed By: #### A 1C #### [facility] [address] [place] [address] Dr. Hortencia Conley HbA1c (Bld) [Mass fraction] 5.4 % Normal 4.5-6.2 [facility] Comment on above: Performed By: #### A 1C #### [facility] [address] [place] [address] Dr. Hortencia Conley LIPID PROFILEon 03-12-2023 CHOL-HDL RATIO NORM SEE BELOW Normal [facility] Comment on above: Result Comment: 3.3 - 4.4 LOW RISK 4.4 - 7.1 AVERAGE RISK 7.1 - 11.0 MODERATE RISK >11.0 HIGH RISK Performed By: #### T 4, FT3, TSH, CMP, URIC, LIPID #### [facility] [address] [address] [address] Hortencia Conley Cholesterol [Mass/Vol] 200 mg/dL Normal <=200 [facility] Comment on above: Performed By: #### T 4, FT3, TSH, CMP, URIC, LIPID #### [facility] [address] [address] [address] Hortencia Conley Cholesterol in HDL [Mass/Vol] 57 mg/dL Normal 40-60 [facility] Comment on above: Performed By: #### T 4, FT3, TSH, CMP, URIC, LIPID #### [facility] [address] [place] [address] Dr. Hortencia Conley Cholesterol in LDL [Mass/Vol] 121.2 mg/dL Normal [facility] Comment on above: Performed By: #### T 4, FT3, TSH, CMP, URIC, LIPID #### [facility] [address] [address] [address] Hortencia Conley Cholesterol.total/Cho lesterol in HDL [Mass ratio] 3.5 {ratio} Normal [facility] Comment on above: Performed By: #### T 4, FT3, TSH, CMP, URIC, LIPID #### [facility] [address] [address] [address] Hortencia Conley HDL NORMAL > or = 60 mg/dl - LO W CARDIOVASCULAR RISK <40 mg/dl - HIGH CARDIOVASCULAR RISK Normal [facility] Comment on above: Performed By: #### T 4, FT3, TSH, CMP, URIC, LIPID #### [facility] [address] [address] [address] Hortencia Conley LDL CALC NORMAL SEE BELOW Normal [facility] Comment on above: Result Comment: <100 mg/dl OPTIMAL 100 - 129 mg/dl NEAR OR ABOVE OPTIMAL 130 - 159 mg/dl BORDERLINE HIGH 160 - 189 mg/dl HIGH >190 mg/dl VERY HIGH Performed By: #### T 4, FT3, TSH, CMP, URIC, LIPID #### [facility] [address] [address] [address] Hortencia Conley Triglyceride [Mass/Vol] 109 mg/dL Normal <=150 [facility] Comment on above: Performed By: #### T 4, FT3, TSH, CMP, URIC, LIPID #### [facility] [address] [address] [address] Hortencia Conley VLDL CALC 21.8 mg/dL Normal [facility] Comment on above: Performed By: #### T 4, FT3, TSH, CMP, URIC, LIPID #### [facility] [address] [address] [address] Hortencia Conley PROF 14(COMP METB)on 023 Albumin [Mass/Vol] 4.0 g/dL Normal 3.4-5.0 [facility] Comment on above: Performed By: #### C RP #### [facility] [address] [address] [address] Hortencia Conley Albumin/Globulin [Mass ratio] 1.1 {ratio} Normal [facility] Comment on above: Performed By: #### C RP #### [facility] [address] [place] [address] Dr. Hortencia Conley ALP [Catalytic activity/Vol] 75 U/L Normal 46-116 [facility] Comment on above: Performed By: #### C RP #### [facility] [address] [place] [address] Dr. Hortencia Conley ALT [Catalytic activity/Vol] 46 U/L Normal 16-63 [facility] Comment on above: Performed By: #### C RP #### [facility] [address] [place] [address] Dr. Hortencia Conley Anion gap [Moles/Vol] 16.0 mmol/L Normal Th e [facility] Comment on above: Performed By: #### C RP #### [facility] [address] [place] [address] Dr. Hortencia Conley AST [Catalytic activity/Vol] 30 U/L Normal 15-37 [facility] Comment on above: Performed By: #### C RP #### [facility] [address] [place] [address] Dr. Hortencia Conley Bilirubin [Mass/Vol] 0.4 mg/dL Normal 0.2-1.0 [facility] Comment on above: Performed By: #### C RP #### [facility] [address] [place] [address] Dr. Hortencia Conley Calcium [Mass/Vol] 9.1 mg/dL Normal 8.5-10.1 [facility] Comment on above: Performed By: #### C RP #### [facility] [address] [place] [address] Dr. Hortencia Conley Chloride [Moles/Vol] 105 mmol/L Normal 98-107 [facility] Comment on above: Performed By: #### C RP #### [facility] [address] [place] [address] Dr. Hortencia Conley CO2 [Moles/Vol] 27.8 mmol/L Normal 21.0-32.0 [facility] Comment on above: Performed By: #### C RP #### [facility] [address] [place] [address] Dr. Hortencia Conley Creatinine [Mass/Vol] 0.81 mg/dL Normal 0.70-1.30 [facility] Comment on above: Performed By: #### C RP #### [facility] [address] [place] [address] Dr. Hortencia Conley EGFR-AF MEXICAN >60 Normal >=[address] [facility] Comment on above: Performed By: #### C RP #### [facility] [address] [place] [address] Dr. Hortencia Conley EGFR-NON AF MEXICAN >60 Normal >=60 [facility] Comment on above: Performed By: #### C RP #### [facility] [address] [place] [address] Dr. Hortencia Conley Globulin (S) [Mass/Vol] 3.5 g/dL Normal [facility] Comment on above: Performed By: #### C RP #### [facility] [address] [place] [address] Dr. Hortencia Conley Glucose [Mass/Vol] 92 mg/dL Normal 74-106 [facility] Comment on above: Performed By: #### C RP #### [facility] [address] [place] [address] Dr. Hortencia Conley Potassium [Moles/Vol] 3.8 mmol/L Normal 3.5-5.1 [facility] Comment on above: Performed By: #### C RP #### [facility] [address] [place] [address] Dr. Hortencia Conley Protein [Mass/Vol] 7.5 g/dL Normal 6.4-8.2 [facility] Comment on above: Performed By: #### C RP #### [facility] [address] [place] [address] Dr. Hortencia Conley Sodium [Moles/Vol] 145 mmol/L Normal 136-145 [facility] Comment on above: Performed By: #### C RP #### [facility] [address] [place] [address] Dr. Hortencia Conley Urea nitrogen [Mass/Vol] 13.0 mg/dL Normal 7.0-18.0 [facility] Comment on above: Performed By: #### C RP #### [facility] [address] [place] [address] Dr. Hortencia Conley Urea nitrogen/Creatinine [Mass ratio] 16.0 mg/mg Normal [facility] Comment on above: Performed By: #### C RP #### [facility] [address] [address] [address] Hortencia Conley T4on 03-12-2023 T4 [Mass/Vol] 11.40 ug/dL Normal 4.50-12.10 [facility] Comment on above: Performed By: #### T 4, FT3, TSH, CMP, URIC, LIPID #### [facility] [address] [place] [address] Dr. Hortencia Conley TSHon 03-12-2023 TSH 1.726 uIU/mL Normal 0.358-3.740 [facility] Comment on above: Performed By: #### C RP #### [facility] [address] [place] [address] Dr. Hortencia Conley URIC ACID SERUMon 03-12-2023 Urate [Mass/Vol] 7.5 mg/dL Critically high 3.5-7.2 [facility] Comment on above: Performed By: #### C RP #### [facility] [address] [place] [address] Dr. Hortencia Conley [facility] 02-20-2023 [facility] Telephone (CARDMN) MILTON FRIEND ([id number]) 1960 M Date Time Provider Department 02/20/23 ODESSA TERRY CARDAR During your visit today, we recorded the following information about you: Joy Greenwood RN 02/20/2023 4:39 PM Signed Returned call to patient. No answer. Information re: his Watchman device sent to patient via [employer] message. Joy Greenwood RN Allergies As of Date: 02/20/2023 Noted Allergy Reaction BRYNN INHIBITORS 10/05/2021 7 - Swelling AMINO ACIDS 01/05/2022 14 - Other: See Comments CIPROFLOXACIN 01/05/2022 14 - Other: See Comments LOBSTER (CRUSTACEANS) 11/23/2013 16 - Unknown Date Reviewed: 10/04/2022 Reviewed by: Andry Peterson RN - Fully Assessed Reason for Visit: Patient Question [[id number]] Prescriptions as of 02/20/2023 - hydrALAZINE (APRESOLINE) 50 mg tablet TAKE 1 TABLET THREE TIMES DAILY - sodium chloride 0.9 %, flush, (BD POSIFLUSH) syringe Inject 2-10 mL intravenously as directed. For Echo procedure - aspirin, enteric coated (ECOTRIN LOW STRENGTH) 81 mg EC tablet Take 1 tablet by mouth once daily. - diazePAM (VALIUM) 5 mg tablet For flying - sildenafil (VIAGRA) 100 mg tablet TAKE HALF(1/2) OR ONE(1) TABLET BY MOUTH 30-60 MINUTES PRIOR TO SEXUAL ACTIVITY - glucosamine/chondr christiansen A sod (OSTEO BI-FLEX ORAL) Take by mouth once daily. - cholecalciferol (VITAMIN D-3) 5,000 unit tab Take 5,000 Units by mouth once daily. - Magnesium Oxide 250 mg magnesium tab Take 1 tablet by mouth. - omeprazole (PRILOSEC) 20 mg capsule Take 20 mg by mouth once daily. - hydrochlorothiazide 25 mg tablet Take 25 mg by mouth once daily. - zolpidem (AMBIEN) 10 mg tab Take 5 mg by mouth daily at bedtime. - atenolol 50 mg tablet Take 50 mg by mouth twice daily. - Verapamil SR 240 mg 24 hr capsule Take 240 mg by mouth daily at bedtime. Facility-Administered Medications as of 02/20/2023 - perflutren lipid microspheres 1.3 mL in NaCl (PF) 0.9% 10 mL injection (DEFINITY) - sodium chloride 0.9 % (flush) 10 mL (BD POSIFLUSH) Problem List As Of Date 02/20/2023 Noted Resolved Persistent atrial fibrillation (HCC) [I48.19] 11/23/2013 HTN (hypertension) [I10] 11/23/2013 Hemiparesis and other late effects of cerebrova*02/17/2014 Unspecified cerebral artery occlusion with cere*06/07/2014 Stroke due to intracerebral hemorrhage (HCC) [I*01/26/2005 Atrial fibrillation (HCC) [I48.91] 06/25/2022 Encounter Status:Closed by JOY GREENWOOD [facility] MILTON FRIEND ([id number]) 1960 Date Time Provider Department 02/20/23 ODESSA TERRY CARDAR During your visit today, we recorded the following information about you: Kyra Clements 02/20/2023 12:32 PM Signed Scheduling just called for patient. Kyra KirkLaura Allergies As of Date: 02/20/2023 Noted Allergy Reaction BRYNN INHIBITORS 10/05/2021 7 - Swelling AMINO ACIDS 01/05/2022 14 - Other: See Comments CIPROFLOXACIN 01/05/2022 14 - Other: See Comments LOBSTER (CRUSTACEANS) 11/23/2013 16 - Unknown Date Reviewed: 10/04/2022 Reviewed by: Andry Peterson RN - Fully Assessed Reason for Visit: Patient Question [[id number]] Cmt: Patient left a VM on Device Clinic line, want to know the model number of the Watchman that was implanted in the fall. Please call the patient at [phone] Prescriptions as of 02/20/2023 - hydrALAZINE (APRESOLINE) 50 mg tablet TAKE 1 TABLET THREE TIMES DAILY - sodium chloride 0.9 %, flush, (BD POSIFLUSH) syringe Inject 2-10 mL intravenously as directed. For Echo procedure - aspirin, enteric coated (ECOTRIN LOW STRENGTH) 81 mg EC tablet Take 1 tablet by mouth once daily. - diazePAM (VALIUM) 5 mg tablet For flying - sildenafil (VIAGRA) 100 mg tablet TAKE HALF(1/2) OR ONE(1) TABLET BY MOUTH 30-60 MINUTES PRIOR TO SEXUAL ACTIVITY - glucosamine/chondr christiansen A sod (OSTEO BI-FLEX ORAL) Take by mouth once daily. - cholecalciferol (VITAMIN D-3) 5,000 unit tab Take 5,000 Units by mouth once daily. - Magnesium Oxide 250 mg magnesium tab Take 1 tablet by mouth. - omeprazole (PRILOSEC) 20 mg capsule Take 20 mg by mouth once daily. - hydrochlorothiazide 25 mg tablet Take 25 mg by mouth once daily. - zolpidem (AMBIEN) 10 mg tab Take 5 mg by mouth daily at bedtime. - atenolol 50 mg tablet Take 50 mg by mouth twice daily. - Verapamil SR 240 mg 24 hr capsule Take 240 mg by mouth daily at bedtime. Facility-Administered Medications as of 02/20/2023 - perflutren lipid microspheres 1.3 mL in NaCl (PF) 0.9% 10 mL injection (DEFINITY) - sodium chloride 0.9 % (flush) 10 mL (BD POSIFLUSH) Problem List As Of Date 02/20/2023 Noted Resolved Persistent atrial fibrillation (HCC) [I48.19] 11/23/2013 HTN (hypertension) [I10] 11/23/2013 Hemiparesis and other late effects of cerebrova*02/17/2014 Unspecified cerebral artery occlusion with cere*06/07/2014 Stroke due to intracerebral hemorrhage (HCC) [I*01/26/2005 Atrial fibrillation (HCC) [I48.91] 06/25/2022 Encounter Status:Closed by KYRA CLEMENTS on 02/20/23 [facility] CNOVon 10-04-2022 CNOV Office Visit (CARDMN ) MILTON [id number]) 1960 M Date Time Provider Department 10/04/22 12:15 PM ODESSA TERRY During your visit today, we recorded the following information about you: Pulse Blood pressure Weight Height 54/minute 141/85 95.7 kg 1.689 m Odessa Terry MD 10/05/2022 3:08 PM Signed [facility] [place] [facility] Department of Cardiovascular Medicine SECTION OF CARDIAC PACING and ELECTROPHYSIOLOGY OUTPATIENT VISIT DATE October 04, 2022 OUTPATIENT VISIT TYPE ESTABLISHED PRIMARY CARE PHYSICIAN: Abril Yeboah MD [address] [place] [address] CHIEF COMPLAINT: AF Watchman in place HISTORY OF PRESENT ILLNESS/NURSING INTAKE: Mr. Friend is a 62 year old male who presents today for follow-up visit after concomitant Watchman + PVI on 06/26/22. He has a history of recurrent, persistent symptomatic atrial fibrillation. Watchman indication was prior intracranial hemorrhage. He has a [id number] score of 3 for hypertension and prior stroke. He continues on Eliquis currently. TTM transmissions have shown NSR. 1. How often on average, does your irregular heart rhythm (atrial fibrillation) occur? Not applicable, I have not had an irregular heart rhythm since my ablation 2. How long on average, do the episodes of the irregular heart rhythm last? Not applicable, I have not had an irregular heart rhythm since my ablation 3. How often have you been bothered by this symptom in the past 4 weeks? Palpitations: none, Shortness of breath at rest: none, Shortness of breath during physical activity: none, Exercise intolerance (fatigue during mild physical activity): none, Fatigue at rest: a little, Lightheadedness/dizzine ss: very little, and Chest pain or pressure: very little 4. Have you had an inpatient hospital admission within 30 days of your procedure? No Joy Greenwood RN He denies chest pain, shortness of breath, orthopnea, cough, edema, palpitations, PND, lightheadedness or syncope. EKG today: 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) 01/26/2005 Right thalamic and right internal capsule hemorrhage on asa at the time., unsure of dose PAST SURGICAL HISTORY Procedure Laterality Date CARDIAC CATH 10/28/2003 CARDIOVERSION 05/31/2021 CARDIOVERSION 12/13/2021 OPEN REPAIR OF ROTATOR CUFF ACUTE 10/28/2003 Rotator cuff repair right x 2 SOCIAL HISTORY Social History Tobacco Use Smoking status: Never Smokeless tobacco: Never Vaping Use Vaping Use: Never used Substance Use Topics Alcohol use: Yes Comment: social, rarely Drug use: No FAMILY HISTORY Problem Relation Age of Onset Coronary Artery Disease Mother PPM Diabetes Mother Hyperlipidemia Mother Hypertension Mother Cancer Mother multiple Heart Father afib, stroke Stroke Father hemorrhagic stroke No Known Problems Sister ALLERGIES Allergen Reactions Brynn Inhibitors Swelling Amino Acids Other: See Comments Ciprofloxacin Other: See Comments Lobster (Crustacean* Unknown MEDICATIONS: aspirin, enteric coated (ECOTRIN LOW STRENGTH) 81 mg EC tabletTake 1 tablet by mouth once daily.Disp: 50 tabletRfl: 0 diazePAM (VALIUM) 5 mg tabletFor flyingDisp: Rfl: sildenafil (VIAGRA) 100 mg tabletTAKE HALF(1/2) OR ONE(1) TABLET BY MOUTH 30-60 MINUTES PRIOR TO SEXUAL ACTIVITYDisp: Rfl: glucosamine/chondr christiansen A sod (OSTEO BI-FLEX ORAL)Take by mouth once daily.Disp: Rfl: hydrALAZINE (APRESOLINE) 50 mg tabletTake 1 tablet by mouth three times daily.Disp: 270 tabletRfl: 3 ELIQUIS 5 mg tab(s)TAKE 1 TABLET BY MOUTH TWICE A DAYDisp: 60 tabletRfl: 11 cholecalciferol (VITAMIN D-3) 5,000 unit tabTake 5,000 Units by mouth once daily.Disp: Rfl: Magnesium Oxide 250 mg magnesium tabTake 1 tablet by mouth.Disp: Rfl: omeprazole (PRILOSEC) 20 mg capsuleTake 20 mg by mouth once daily. Disp: Rfl: hydrochlorothiazide 25 mg tabletTake 25 mg by mouth once daily.Disp: Rfl: zolpidem (AMBIEN) 10 mg tabTake 5 mg by mouth daily at bedtime. Disp: Rfl: atenolol 50 mg tabletTake 50 mg by mouth twice daily.Disp: Rfl: Verapamil SR 240 mg 24 hr capsuleTake 240 mg by mouth daily at bedtime.Disp: Rfl: ROSIE Quintana, RN I personally interviewed, confirmed and edited the above information as obtained by others. PHYSICAL EXAMINATION: BP 141/85 Pulse (!) 54 Ht 168.9 cm (5' 6.5 ) Wt 95.7 kg (211 lb) BMI 33.55 kg/m? General appearance: well appearing, in no acute distress, alert H+ENT: no JVP, no goiter apparent, no icterus Lungs: Lungs clear to auscultation, No wheezin (more content not included)... Normal [facility] CNOV Office Visit (CAFLMN ) MILTON FRIEND ([id number]) 1960 M Date Time Provider Department 10/04/22 9:15 AM TRANSESOPHAGEAL ECHO CARD MAINCAFLMN During your visit today, we recorded the following information about you: Temperature Pulse Respiration Blood pressure 97 degrees 60/minute 18/minute 130/81 Chelly Yap RN 10/25/2022 8:45 AM Signed AMBULATORY PATIENT EDUCATION TOPIC: SURVIVAL SKILLS: JOSE READINESS TO LEARN COGNITIVE ABILITY: Alert and oriented MOTIVATION TO LEARN: Interested FAMILY SUPPORT: None - Unavailable/disinterest ed INSTRUCTION PROVIDED TO: Patient PATIENT LEARNS BEST BY: Individual Instruction FACTORS AFFECTING LEARNING: None PHYSICAL LIMITATIONS AFFECTING LEARNING: None LEARNING RESPONSE DIAGNOSIS: watchman 45 day followup METHOD OF INSTRUCTION: Individual instruction PATIENT / FAMILY RESPONSE: Verbalizes understanding of: POST-PROCEDURE INSTRUCTIONS-Correct actions to take to reduce post procedure complications PRE-PROCEDURE INSTRUCTIONS-Correct action to take to follow pre-procedure instructions FOLLOW-UP PLAN: Complete - No need for follow-up SUPPLEMENTAL MATERIAL: Post JOSE instructions given Post sedation instructions given REFERRAL (RECOMMENDATION): None Electronically Signed By Chelly Yap RN In Department: CARDIOLOGY Referring Provider: ODESSA TERRY [[id number]] Allergies As of Date: 10/04/2022 Noted Allergy Reaction BRYNN INHIBITORS 10/05/2021 7 - Swelling AMINO ACIDS 01/05/2022 14 - Other: See Comments CIPROFLOXACIN 01/05/2022 14 - Other: See Comments LOBSTER (CRUSTACEANS) 11/23/2013 16 - Unknown Date Reviewed: 10/04/2022 Reviewed by: Andry Peterson RN - Fully Assessed Visit Diagnosis:Persistent atrial fibrillation (HCC) [I48.19] Order(s):ECHO TRANSESOPHAGEAL [[id number]] Order #: [id number]. #:[id number] : 1 [] lidocaine viscous 2 % (XYLOCAINE)Disp: Rfl: [] benzocaine 20% (TOPEX)Disp: Rfl: [] fentaNYL 50 mcg/mL injection (SUBLIMAZE)Disp: Rfl: [] midazolam (PF) injection (VERSED)Disp: Rfl: Prescriptions as of 10/25/2022 - sodium chloride 0.9 %, flush, (BD POSIFLUSH) syringe Inject 2-10 mL intravenously as directed. For Echo procedure - aspirin, enteric coated (ECOTRIN LOW STRENGTH) 81 mg EC tablet Take 1 tablet by mouth once daily. - diazePAM (VALIUM) 5 mg tablet For flying - sildenafil (VIAGRA) 100 mg tablet TAKE HALF(1/2) OR ONE(1) TABLET BY MOUTH 30-60 MINUTES PRIOR TO SEXUAL ACTIVITY - glucosamine/chondr christiansen A sod (OSTEO BI-FLEX ORAL) Take by mouth once daily. - hydrALAZINE (APRESOLINE) 50 mg tablet Take 1 tablet by mouth three times daily. - cholecalciferol (VITAMIN D-3) 5,000 unit tab Take 5,000 Units by mouth once daily. - Magnesium Oxide 250 mg magnesium tab Take 1 tablet by mouth. - omeprazole (PRILOSEC) 20 mg capsule Take 20 mg by mouth once daily. - hydrochlorothiazide 25 mg tablet Take 25 mg by mouth once daily. - zolpidem (AMBIEN) 10 mg tab Take 5 mg by mouth daily at bedtime. - atenolol 50 mg tablet Take 50 mg by mouth twice daily. - Verapamil SR 240 mg 24 hr capsule Take 240 mg by mouth daily at bedtime. Facility-Administered Medications as of 10/25/2022 - perflutren lipid microspheres 1.3 mL in NaCl (PF) 0.9% 10 mL injection (DEFINITY) - sodium chloride 0.9 % (flush) 10 mL (BD POSIFLUSH) Problem List As Of Date 10/04/2022 Noted Resolved Persistent atrial fibrillation (HCC) [I48.19] 11/23/2013 HTN (hypertension) [I10] 11/23/2013 Hemiparesis and other late effects of cerebrova*02/17/2014 Unspecified cerebral artery occlusion with cere*06/07/2014 Stroke due to intracerebral hemorrhage (HCC) [I*01/26/2005 Atrial fibrillation (HCC) [I48.91] 06/25/2022 Prescriptions ordered this encounter Disp Refills Start End LIDOCAINE HCL 2 % MUCOSAL SOLUTION 10/04/2022 10/04/2022 Route: ORAL BENZOCAINE 20% TOPICAL SPRAY 10/04/2022 10/04/2022 Route: TOPICAL FENTANYL (PF) 50 MCG/ML INJECTION SO* 10/04/2022 10/04/2022 Route: INTRAVENOUS MIDAZOLAM (PF) 1 MG/ML INJECTION SONAL* 10/04/2022 10/04/2022 Route: INTRAVENOUS Encounter Status:Closed by PRESTON GARCIA on 10/25/22 [id number] ECG01 Ventricular Rate : 6 5 BPM Atrial Rate : 65 BPM P-R Interval : 180 ms QRS Duration : 116 ms Q-T Interval : 408 ms QTC Calculation(Bazett) : 424 ms Calculated P [place] : 19 degrees Calculated R [place] : -17 degrees Calculated T [place] : -10 degrees NORMAL SINUS RHYTHM INCOMPLETE RIGHT BUNDLE BRANCH BLOCK BORDERLINE ECG Confirmed by FARHAD DE LUNA MD ([id number]) on 10/07/2022 10:46:53 AM NAME : MILTON FRIEND PID : [id number] : 1960 Gender : Male Race : ORD : Procedure Date : Oct 04 2022 09:06:31 Edit Date : Oct 07 2022 10:46:54 Diagnosis: NORMAL SINUS RHYTHM INCOMPLETE RIGHT BUNDLE BRANCH BLOCK BORDERLINE ECG Confirmed by FARHAD DE LUNA MD ([id number]) on 10/07/2022 10:46:53 AM Test Reason : Location : 314 : J14 J1-4 Overread By : FARHAD DE LUNA MD Edited By : FARHAD DE LUNA MD Referred By : ODESSA TERRY Acquired by : JAIDEN HART [facility] ECHO TRANSESOPHAGEALon 10-04 ECHO TRANSESOPHAGEAL Echocardiography Report: Transesophageal Echo [facility] J1-5 Date of service: 10/04/2022 10:17:10 AM 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 Medications Total Dose Versed 3.00 mg Fentanyl 75.00 mcg Exam performed under moderate sedation with continuous ECG, pulse oximetry and cardiopulmonary monitoring by nursing, overseen by the performing physician(s), for an intraservice time of 24 min. (Stop Time: 10:55) No specimens collected. No blood loss. The interpreting physician was present for and actively participated in the JOSE procedure. MEASUREMENTS: Value Normal Ejection Fraction 55 % (visual est.) EF > 52 FINDINGS: LEFT VENTRICLE The left ventricle is normal in size. Left ventricular systolic function is normal. Wall Motion: All scored segments are normal. RIGHT VENTRICLE The right ventricle is normal in size. Right ventricular systolic function is normal. LEFT ATRIUM The left atrial cavity is normal in size. A WATCHMAN Flex device #24 left atrial appendage closure device has been implanted. There is a inferior ara-device leak less than 5 mm in diameter. Pulmonary Veins: The right upper pulmonary vein is normal in size. The left upper pulmonary vein is normal in size. The left lower pulmonary vein is normal in size. The pulmonary venous pattern showed normal systolic flow. RIGHT ATRIUM The right atrial cavity is normal in size. MITRAL VALVE The mitral valve leaflets are structurally normal. 3D echocardiographic multi-planar reconstruction of the mitral valve was performed to assess anatomy and function. TRICUSPID VALVE The tricuspid valve leaflets are structurally normal. [place] tricuspid valve. There is no tricuspid valve regurgitation. AORTIC VALVE The aortic valve cusps are structurally normal. There is no aortic valve regurgitation. Tricuspid aortic valve. PULMONIC VALVE The pulmonic valve cusps are structurally normal. INTERATRIAL SEPTUM The interatrial septum is normal. There is no evidence of intracardiac shunting as detected by Doppler. CONCLUSIONS: - Exam indication: Post Watchmann implantation - The left ventricle is normal in size. Left ventricular systolic function is normal. EF = 55 5% (visual est.) - The right ventricle is normal in size. Right ventricular systolic function is normal. - A WATCHMAN Flex device #24 left atrial appendage closure device has been implanted. There is a inferior ara-device leak less than 5 mm in diameter. - No thrombus present on the WATCHMAN - There are no significant valvular abnormalities. - Exam was compared with the prior CC echocardiographic exam performed on 06/25/2022. Similar findings. * * * Final (Updated) * * * [employer] : [id number] ISUID Normal [facility] MILTON FRIEND ([id number]) 1960 M Date Time Provider Department 10/03/22 LEANN LEWIS During your visit today, we recorded the following information about you: Lenan Lewis RN 10/03/2022 10:32 AM Signed ECHO LAB TELEPHONE INSTRUCTIONS: Learning Response: Instructions provided to: Patient Procedure: JOSE Pre procedure education topics: Arrival time, NPO status, Medications, Travel, and Accompanied by a responsible adult Instructions/Restrictio ns Patient/Family Response Evaluation: Verbalizes understanding Follow Up Plan and Medication: As directed by physician Instruction/Supplementa l Material Given: Appointment Information and Procedure/Test Specific Information: Transesphageal Echocardiogram-JOSE Instructed By Leann Lewis RN. In Department of CARDIOLOGY. Allergies As of Date: 10/03/2022 Noted Allergy Reaction BRYNN INHIBITORS 10/05/2021 7 - Swelling AMINO ACIDS 01/05/2022 14 - Other: See Comments CIPROFLOXACIN 01/05/2022 14 - Other: See Comments LOBSTER (CRUSTACEANS) 11/23/2013 16 - Unknown Date Reviewed: 06/25/2022 Reviewed by: Misti Barker RN - Fully Assessed Reason for Visit: Reminder Call [[id number]] Cmt: jose Prescriptions as of 10/03/2022 - sodium chloride 0.9 %, flush, (BD POSIFLUSH) syringe Inject 2-10 mL intravenously as directed. For Echo procedure - sodium chloride 0.9 %, flush, (BD POSIFLUSH) syringe Inject 2-10 mL intravenously as directed. For Echo procedure - pantoprazole DR (PROTONIX) 20 mg tablet Take 1 tablet by mouth DAILY (6 AM). - aspirin, enteric coated (ECOTRIN LOW STRENGTH) 81 mg EC tablet Take 1 tablet by mouth once daily. - sodium chloride 0.9 %, flush, (BD POSIFLUSH) syringe Inject 2-10 mL intravenously as directed. For Echo procedure - diazePAM (VALIUM) 5 mg tablet For flying - sildenafil (VIAGRA) 100 mg tablet TAKE HALF(1/2) OR ONE(1) TABLET BY MOUTH 30-60 MINUTES PRIOR TO SEXUAL ACTIVITY - glucosamine/chondr christiansen A sod (OSTEO BI-FLEX ORAL) Take by mouth once daily. - hydrALAZINE (APRESOLINE) 50 mg tablet Take 1 tablet by mouth three times daily. - ELIQUIS 5 mg tab(s) TAKE 1 TABLET BY MOUTH TWICE A DAY - cholecalciferol (VITAMIN D-3) 5,000 unit tab Take 5,000 Units by mouth once daily. - Magnesium Oxide 250 mg magnesium tab Take 1 tablet by mouth. - omeprazole (PRILOSEC) 20 mg capsule Take 20 mg by mouth once daily. - hydrochlorothiazide 25 mg tablet Take 25 mg by mouth once daily. - zolpidem (AMBIEN) 10 mg tab Take 5 mg by mouth daily at bedtime. - atenolol 50 mg tablet Take 50 mg by mouth twice daily. - Verapamil SR 240 mg 24 hr capsule Take 240 mg by mouth daily at bedtime. Facility-Administered Medications as of 10/03/2022 - perflutren lipid microspheres 1.3 mL in NaCl (PF) 0.9% 10 mL injection (DEFINITY) - sodium chloride 0.9 % (flush) 10 mL (BD POSIFLUSH) Problem List As Of Date 10/03/2022 Noted Resolved Persistent atrial fibrillation (HCC) [I48.19] 11/23/2013 HTN (hypertension) [I10] 11/23/2013 Hemiparesis and other late effects of cerebrova*02/17/2014 Unspecified cerebral artery occlusion with cere*06/07/2014 Stroke due to intracerebral hemorrhage (HCC) [I*01/26/2005 Atrial fibrillation (HCC) [I48.91] 06/25/2022 Encounter Status:Closed by LEANN LEWIS on 10/03/22 Normal [facility] ARRHYTHMIA TRANS TELE MEASUR Romain 09-27-2022 Measure SC Interval 130 [facility] MEASURE QRS [facility] MEAS[facility] QT Interval 450 [facility] MEASURE RR INTERVAL MAX 65.57 [facility] Symptoms routine [facility] ARRHYTHMIA TRANS TELE MEASUR Romain 09-06-2022 Measure SC Interval 130 [facility] MEASURE QRS Interval 90 [facility] MEASURE QT Interval 402 [facility] MEASURE RR INTERVAL MAX 60 [facility] Symptoms Routine [facility] ARRHYTHMIA TRANS TELE MEASUR Romain 08-30-2022 Measure SC Interval 183 [facility] MEASURE QRS Interval [facility] ME[facility] QT Interval 399 [facility] MEASURE RR INTERVAL MAX 68.15 [facility] Symptoms Routine [facility] ARRHYTHMIA TRANS TELE MEASUR Romain 08-20-2022 Measure SC Interval 77 [facility] MEASURE QRS Interval 60 [facility] MEASURE QT Interval 450 [facility] MEASURE RR INTERVAL MAX 60.47 [facility] Symptoms routine [facility] ARRHYTHMIA TRANS TELE MEASUR Romain 08-10-2022 Measure SC Interval [address] [facility] MEASURE QRS Interval 60 [facility] MEASURE QT Interval [address] [facility] MEASURE RR INTERVAL MAX 59.87 [facility] Symptoms Routine [facility] ARRHYTHMIA TRANS TELE MEASUR Romain 08-03-2022 Measure SC Interval [address] [facility] [facility] MEASURE QRS Interval 88 [facility] MEASURE QT Interval [address] [facility] MEASURE RR INTERVAL MAX 70.95 [facility] Symptoms Routine [facility] ARRHYTHMIA TRANS TELE MEASUR Romain 07-20-2022 Measure SC Interval [address] [facility] MEASURE QRS Interval 60 [facility] MEASURE QT Interval [address] [facility] MEASURE RR INTERVAL MAX 64.96 [facility] Symptoms routine [facility] ARRHYTHMIA TRANS TELE MEASUR Romain 07-11-2022 Measure SC Interval [address] [facility] MEASURE QRS Interval 60 [facility] MEASURE QT Interval [address] [facility] MEASURE RR INTERVAL MAX 64.04 [facility] Symptoms routine [facility] CNPNon 06-26-2022 CNPN Telephone (PODCCP) MILTON FRIEND ([id number]) 1960 M Date Time Provider Department 06/26/22 LEENA HARRINGTON During your visit today, we recorded the following information about you: Leena Harrington RN 06/26/2022 11:51 AM Signed We are calling to check on you since you left the hospital yesterday. Are you having any medical concerns we can help you with today? none Call Outcome All Clear Closing comments given. Pt states they have 24 hr RN resource phone number and website in discharge paperwork. Allergies As of Date: 06/26/2022 Noted Allergy Reaction BRYNN INHIBITORS 10/05/2021 7 - Swelling AMINO ACIDS 01/05/2022 14 - Other: See Comments CIPROFLOXACIN 01/05/2022 14 - Other: See Comments LOBSTER (CRUSTACEANS) 11/23/2013 16 - Unknown Date Reviewed: 06/25/2022 Reviewed by: Misti Barker RN - Fully Assessed Reason for Visit: Follow Up Phone Call [[id number]] Cmt: Relate care discharge follow gq-cwatuuicn-hel clear Prescriptions as of 06/26/2022 - pantoprazole DR (PROTONIX) 20 mg tablet Take 1 tablet by mouth DAILY (6 AM). - aspirin, enteric coated (ECOTRIN LOW STRENGTH) 81 mg EC tablet Take 1 tablet by mouth once daily. - sodium chloride 0.9 %, flush, (BD POSIFLUSH) syringe Inject 2-10 mL intravenously as directed. For Echo procedure - diazePAM (VALIUM) 5 mg tablet For flying - sildenafil (VIAGRA) 100 mg tablet TAKE HALF(1/2) OR ONE(1) TABLET BY MOUTH 30-60 MINUTES PRIOR TO SEXUAL ACTIVITY - glucosamine/chondr christiansen A sod (OSTEO BI-FLEX ORAL) Take by mouth once daily. - hydrALAZINE (APRESOLINE) 50 mg tablet Take 1 tablet by mouth three times daily. - ELIQUIS 5 mg tab(s) TAKE 1 TABLET BY MOUTH TWICE A DAY - cholecalciferol (VITAMIN D-3) 5,000 unit tab Take 5,000 Units by mouth once daily. - Magnesium Oxide 250 mg magnesium tab Take 1 tablet by mouth. - omeprazole (PRILOSEC) 20 mg capsule Take 20 mg by mouth once daily. - hydrochlorothiazide 25 mg tablet Take 25 mg by mouth once daily. - zolpidem (AMBIEN) 10 mg tab Take 5 mg by mouth daily at bedtime. - atenolol 50 mg tablet Take 50 mg by mouth twice daily. - Verapamil SR 240 mg 24 hr capsule Take 240 mg by mouth daily at bedtime. Problem List As Of Date 06/26/2022 Noted Resolved Persistent atrial fibrillation (HCC) [I48.19] 11/23/2013 HTN (hypertension) [I10] 11/23/2013 Hemiparesis and other late effects of cerebrova*02/17/2014 Unspecified cerebral artery occlusion with cere*06/07/2014 Stroke due to intracerebral hemorrhage (HCC) [I*01/26/2005 Atrial fibrillation (HCC) [I48.91] 06/25/2022 Encounter Status:Closed by LEENA HARRINGTON on 06/26/22 [facility] ANES POSTPROC EVALon 022 ANES POSTPROC EVAL HNO ID: [id number] Author: Jose F Khalil MD Service: ? Author Type: Anesthesiologist Type: Anesthesia Postprocedure Evaluation Filed: 06/25/2022 5:17 PM Note Text: POST ANESTHESIA EVALUATION NOTE : 1960 Procedure Summary Date: 06/25/22 Room / Location: [address] LAB Anesthesia Start: 32 Anesthesia Stop: 1231 Procedures: COMPLETE EPS W/PVI ABL W/WO 3D MAP ICE PERC TRANSCATH CLOSURE LEFT ATRIAL APPENDAGE W/IMPLANT,INCLUSIVE OF FLUORO,TRANSEPTAL PUNCTURE,CATH PLACEMENT(S) ANGIO,WHEN PERFORMED,RAD ZACK Diagnosis: Atrial fibrillation, unspecified type (HCC) Surgeons: Odessa Terry MD Responsible Provider: Jose F Khalil MD Anesthesia Type: general ASA Status: 3 Anesthesia Type: general Airway Type: ETT Last Vitals Vitals Value Taken Time BP 174/87 06/25/22 1714 Temp 36.7 ?C (98.1 ?F) 06/25/22 1231 Pulse 90 06/25/22 1716 Resp 16 06/25/22 1600 SpO2 96 % 06/25/221713 Vitals shown include unvalidated device data. Post Anesthesia Patient Status Patient Evaluation: bedside. Anticipated Disposition: inpatient floor planned admission. Neurological Status: aware and responsive. Pulmonary Status: breathing comfortably on supplemental oxygen Airway Control: returned to baseline unsupported. Cardiovascular Status: stable. Pain Management: clinically adequate Postoperative Hydration: acceptable. Intraoperative Events: no significant anesthesia events Post Operative Nausea/Vomiting Status: no significant post operative nausea or vomiting Anesthetic Observations: Recommendation: continue current plan of care. Anesthesia Observations No Documentation SIGNATURE: Jose F Khalil MD PATIENT NAME: Milton Friend DATE: June 25, 2022 TIME: 5:17 PM CSN: [id number] Normal [facility] ANES PRE-OPon 06-25-2022 ANES PRE-OP HNO ID: [id number] Author: Jose F Khalil MD Service: ? Author Type: Anesthesiologist Type: Anesthesia Preprocedure Evaluation Filed: 06/25/2022 9:23 AM Note Text: ANESTHESIOLOGY DAY OF SURGERY NOTE : 1960 Procedure Information Anesthesia Start Date/Time: 06/25/22 0732 Procedures: COMPLETE EPS W/PVI ABL W/WO 3D MAP ICE PERC TRANSCATH CLOSURE LEFT ATRIAL APPENDAGE W/IMPLANT,INCLUSIVE OF FLUORO,TRANSEPTAL PUNCTURE,CATH PLACEMENT(S) ANGIO,WHEN PERFORMED,MAHNAZ DIXON Location: [facility] Surgeons: Odessa Terry MD Estimated body mass index is 33.27 kg/m? as calculated from the following: Height as of 04/19/22: 167.6 cm (5' 6 ). Weight as of this encounter: 93.5 kg (206 lb 2.1 oz). Most recent hematocrit and potassium results: Hematocrit 45.1 06/22/2022 Potassium 4.3 06/22/2022 Relevant Problems CARDIO (+) HTN (hypertension) (+) Persistent atrial fibrillation (HCC) (+) Unspecified cerebral artery occlusion with cerebral infarction NEURO-PSYCH (+) Unspecified cerebral artery occlusion with cerebral infarction I - PHYSICAL EVALUATION AIRWAY Patient intubated: No. Tracheostomy tube not present Mallampati: III. TM distance: >3 FB. Neck ROM: full ROM without neurological symptoms. Mouth opening: adequate. Short neck: no. Thick neck: no DENTAL Dental findings: teeth intact. II - ANESTHESIA PLAN ASA Score: 3 Anesthetic Plan: general Airway type: ETT The patient is not a current smoker. NPO Status: adequate Beta Kirk Administration of chronic beta kirk medication planned. Monitoring plan: standard ASA and invasive hemodynamic monitoring. Monitoring method: arterial Line Postoperative analgesic plan: multimodal analgesia and per surgical service. Informed Consent Anesthetic risks, benefits, alternatives, personnel and consent discussed: yes. Patient / Responsible Democrat agrees to proceed: yes Patient / Surrogate agrees to blood products: Yes Potential Anesthesia issues that may suggest increased risk of complications or contraindication to planned procedure: none. Vitals Value Taken Time BP 143/87 06/25/22 0640 Pulse 81 06/25/22 0640 Resp 18 06/25/22 0640 Temp 36.6 ?C (97.8 ?F) 06/25/22 0640 SpO2 95 % 06/25/22 0640 Facility-Administered Medications as of 06/25/2022 Medication Dose Route Frequency - heparin (porcine) in 0.9% NaCl 1,000 unit/500 mL X (OR/PROCEDURE) CONTINUOUS Outpatient Medications as of 06/25/2022 Medication Sig - ELIQUIS 5 mg tab(s) TAKE 1 TABLET BY MOUTH TWICE A DAY - sodium chloride 0.9 %, flush, (BD POSIFLUSH) syringe Inject 2-10 mL intravenously as directed. For Echo procedure - diazePAM (VALIUM) 5 mg tablet For flying - sildenafil (VIAGRA) 100 mg tablet TAKE HALF(1/2) OR ONE(1) TABLET BY MOUTH 30-60 MINUTES PRIOR TO SEXUAL ACTIVITY - glucosamine/chondr christiansen A sod (OSTEO BI-FLEX ORAL) Take by mouth once daily. - hydrALAZINE (APRESOLINE) 50 mg tablet Take 1 tablet by mouth three times daily. - cholecalciferol (VITAMIN D-3) 5,000 unit tab Take 5,000 Units by mouth once daily. - Magnesium Oxide 250 mg magnesium tab Take 1 tablet by mouth. - omeprazole (PRILOSEC) 20 mg capsule Take 20 mg by mouth once daily. - hydrochlorothiazide 25 mg tablet Take 25 mg by mouth once daily. - zolpidem (AMBIEN) 10 mg tab Take 5 mg by mouth daily at bedtime. - atenolol 50 mg tablet Take 50 mg by mouth twice daily. - Verapamil SR 240 mg 24 hr capsule Take 240 mg by mouth daily at bedtime. I have interviewed and examined the patient. I have reviewed the medical record and/or the pre-anesthesia evaluation, pertinent labs, and test results. This contains updated information obtained within 48 hours of Surgery/Procedure. SIGNATURE: Jose F Khalil MD PATIENT NAME: Milton Friend DATE: June 25, 2022 TIME: 9:23 AM CSN: [id number] [facility] HNO ID: [id number] Author: Odessa Terry MD Service: Cardiovascular Medicine Author Type: Physician Type: Discharge Summary Filed: 06/26/2022 9:43 AM Note Text: DISCHARGE SUMMARY PATIENT NAME: Milton Friend ADMISSION DATE: 06/25/2022 DISCHARGE DATE: 06/25/2022 ATTENDING PHYSICIAN: Odessa Terry MD Code Status: Not on file Highest Readmission Risk Score: 7 The 30 day readmissions risk score is derived from an internally validated risk model which evaluates patient level characteristics, utilization history, medication orders and lab results up until the day of discharge. Patients with a score of 40 or above are considered highest risk for readmission. Specific patient level drivers will be listed at the bottom of the summary. CONSULTING TEAMS DURING HOSPITALIZATION: None Treatment Team: Attending Provider: Odessa Terry MD Primary Service: Hvi Ep Tci REASON FOR HOSPITALIZATION: Watchman implantation and atrial fibrillation ablation DIAGNOSIS: Active Problems: * No active hospital problems. * Resolved Problems: * No resolved hospital problems. * OPERATIONS DURING HOSPITALIZATION: None PROCEDURES DURING HOSPITALIZATION: Atrial Fibrillation Ablation and Watchman Implantation HOSPITAL COURSE: Patient was admitted after elective Watchman 24mm implantation and atrial fibrillation ablation. Procedures was done with no complications. He recovered on the PACU. After monitoring for 6 hours, he remained asymptomatic, was able to walk. Groins did not have bleeding or hematoma. He will be discharged home on ASA 81mg and Apixaban 5mg BID. JOSE will be repeated in 6 weeks. PATIENT CONDITION AT DISCHARGE: Stable DISCHARGE DISPOSITION: Home with Self Care Discharge Physical Exam: VITAL SIGNS: BP 141/86 Pulse 73 Temp 36.7 ?C (98.1 ?F) (Temporal) Resp 18 Wt 93.5 kg (206 lb 2.1 oz) SpO2 98% BMI 33.27 kg/m? GENERAL: Alert, no distress, cooperative EYES: PERRLA, EOMI EARS: External ears normal, canals clear NECK: No jugulovenous distention, No carotid bruits, Carotid pulse normal contour, Supple BACK: Back symmetric, Normal curvature, ROM normal, No CVAT. LUNGS: Lungs clear to auscultation, Good diaphragmatic excursion CARDIAC: Normal S1 and S2; no rubs, murmurs, or gallops EXTREMITIES: Extremities normal, no deformities, edema, clubbing or skin discoloration. Good capillary refill., No ulcers NEURO: Gait normal. Reflexes normal and symmetric. Sensation grossly intact, Cranial nerves II-XII intact WOUND/SURGICAL SITE CARE: DIET: Resume pre-hospital diet ACTIVITY: Resume pre-hospital activity ALLERGIES Allergen Reactions Brynn Inhibitors Swelling Amino Acids Other: See Comments Ciprofloxacin Other: See Comments Lobster (Crustacean* Unknown DISCHARGE MEDICATION: Discharge Medication List as of 06/25/2022 6:08 PM START taking these medications pantoprazole DR (PROTONIX) 20 mg tablet Take 1 tablet by mouth DAILY (6 AM). Normal, Disp-30 tablet, R-2, Long-term aspirin, enteric coated (ECOTRIN LOW STRENGTH) 81 mg EC tablet Take 1 tablet by mouth once daily. Normal, Disp-50 tablet, R-0, Long-term CONTINUE these medications which have NOT CHANGED sodium chloride 0.9 %, flush, (BD POSIFLUSH) syringe Inject 2-10 mL intravenously as directed. For Echo procedure In Office, Disp-10 mL, R-0 Dx: 1. Persistent atrial fibrillation (HCC) diazePAM (VALIUM) 5 mg tablet For flying, Starting 04/16/2022 Historical Med sildenafil (VIAGRA) 100 mg tablet TAKE HALF(1/2) OR ONE(1) TABLET BY MOUTH 30-60 MINUTES PRIOR TO SEXUAL ACTIVITY Historical Med glucosamine/chondr christiansen A sod (OSTEO BI-FLEX ORAL) Take by mouth once daily. Historical Med, Long-term hydrALAZINE (APRESOLINE) 50 mg tablet Take 1 tablet by mouth three times daily. Normal, Disp-270 tablet, R-3, Long-term ELIQUIS 5 mg tab(s) TAKE 1 TABLET BY MOUTH TWICE A DAY Normal, Disp-60 tablet, R-11 cholecalciferol (VITAMIN D-3) 5,000 unit tab Take 5,000 Units by mouth once daily. Historical Med, Long-term Magnesium Oxide 250 mg magnesium tab Take 1 tablet by mouth. Historical Med, Long-term omeprazole (PRILOSEC) 20 mg capsule Take 20 mg by mouth once daily. Historical Med, Long-term hydrochlorothiazide 25 mg tablet Take 25 mg by mouth once daily. Historical Med zolpidem (AMBIEN) 10 mg tab Take 5 mg by mouth daily at bedtime. Historical Med atenolol 50 mg tablet Take 50 mg by mouth twice daily. Historical Med Verapamil SR 240 mg 24 hr capsule Take 240 mg by mouth daily at bedtime. Historical Med FUTURE APPOINTMENTS: The patient's risk for 30-day readmission is determined using the following contributing factors: Pt variables contributing to increased readmission risk: 19 Most Recent BUN Result 3 Active Medication Orders 1 Insurance - Medicare 1 Active Anticoagulant Plan of care discussed with Provider, RN, Patient TIME OF CARE: (more content not included)... Normal [facility] ECG COMPLETEon 06-25-2022 ECG COMPLETE Ventricular Rate : 7 2 BPM Atrial Rate : 72 BPM P-R Interval : 150 ms QRS Duration : 94 ms Q-T Interval : 378 ms QTC Calculation(Bazett) : 413 ms Calculated P [place] : 43 degrees Calculated R [place] : -24 degrees NORMAL SINUS RHYTHM NORMAL ECG Confirmed by KATIE RODRIGUEZ MD ([id number]) on 07/10/2022 7:49:52 AM NAME : MILTON FRIEND PID : [id number] : 1960 Gender : Male Race : ORD : [id number] Procedure Date : Jun 25 2022 17:02:44 Edit Date : Jul 10 2022 07:49:53 Diagnosis: NORMAL SINUS RHYTHM NORMAL ECG Confirmed by KATIE RODRIGUEZ MD ([id number]) on 07/10/2022 7:49:52 AM Test Reason : Post-OP Location : 340 : [id number] J033- Overread By : KATIE RODRIGUEZ MD Edited By : KATIE RODRIGUEZ MD Referred By : , Acquired by : [id number], Normal [facility] INTRAPROCEDURAL ECHOon 06-25 INTRAPROCEDURAL ECHO Echocardiography Report: Procedural Echo Exam [facility] Date of service: 06/25/2022 8:02:33 AM 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 MEASUREMENTS: Value Normal Max aortic dimension 3.6 cm Ao < 3.8 Ejection Fraction 55 % (visual est.) EF > 52 FINDINGS: LEFT VENTRICLE Left ventricular systolic function is normal. RIGHT VENTRICLE The right ventricle is mildly dilated. Right ventricular systolic function is normal. LEFT ATRIUM The left atrial cavity is normal in size. The left atrial appendage is multilobed. There is no left atrial appendage thrombus. Limbus appears thicker post PVI, likely post ablation edema. RIGHT ATRIUM The right atrial cavity is normal in size. The eustachian valve appears prominent. MITRAL VALVE There is mild (1+) mitral valve regurgitation. 3D echocardiographic multi-planar reconstruction of the mitral valve was performed to assess anatomy and function. TRICUSPID VALVE There is trace (trace - 1+) tricuspid valve regurgitation. AORTIC VALVE There is trace aortic valve regurgitation. Tricuspid aortic valve. There is mild thickening. Tiny Lambl's excrescences. PULMONIC VALVE There is trace pulmonic valve regurgitation. AORTA The visualized aorta is normal in size. Measurements - Sinus: 3.6 cm. Mid ascending aorta 3.4 cm. PERICARDIUM There is a trivial pericardial effusion. There is an epicardial fat pad. CONCLUSIONS: - Exam indication: Percutaneous noncoronary guidance - Left ventricular systolic function is normal. EF = 55 ? 5% (visual est.) - The right ventricle is mildly dilated. Right ventricular systolic function is normal. Limited study for procedural guidance. 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 Post-PVI select measurements were taken: -At 45 degree: 1.37 x 1.5 At 90 degree: 1.3 x 1.7 At 135: 1.3 x 2 - After initially placing the Watchman Flx 20- reimplantation of WATCHMAN FLX 24 device with no evidence of residual flow or para-device leak seen by color Doppler. Better compression with #24 device. - There was a trivial pericardial effusion and epicardial fat pre-procedure. No changes noted post. - There is a small residual IAS defect post puncture, with left to right shunt detected by color Doppler. - The patient has not had a prior CC echocardiographic exam for comparison. * * * Final * * * CC [employer] : [id number] Normal [facility] Basic metabolic 2000 panelon 06-22-2022 Anion gap [Moles/Vol] 13 mmol/L Normal 9-18 [facility] Comment on above: Order Comment: Speci men Type: BLOOD SPECIMENOrdering Facility: [facility] Address: [address] [place] [address] [place] [address] Performed By: #### 2 4321-2 ####[facility] LABCLIA [id number] [place] [address] [place] Calcium [Mass/Vol] 9.4 mg/dL Normal 8.5-10.2 [facility] Comment on above: Order Comment: Speci men Type: BLOOD SPECIMENOrdering Facility: [facility] Address: [address] [place], [place] [id number] Performed By: #### 2 4321-2 ####[facility] LABCLIA [id number] [place] [address] [place] Chloride [Moles/Vol] 105 mmol/L Normal 97-105 [facility] Comment on above: Order Comment: Speci men Type: BLOOD SPECIMENOrdering Facility: [facility] Address: [address] [place] [address] Performed By: #### 2 4321-2 ####[facility] LABCLIA [id number] [place] [address] [place] CO2 [Moles/Vol] 25 mmol/L Normal 22-30 [facility] Comment on above: Order Comment: Speci men Type: BLOOD SPECIMENOrdering Facility: [facility] Address: [address] [place], [place] [address] Performed By: #### 2 4321-2 ####[facility] LABCLIA [id number] [place] [address] [place] Creatinine [Mass/Vol] 0.71 mg/dL Low 0.73-1.22 [facility] Comment on above: Order Comment: Speci men Type: BLOOD SPECIMENOrdering Facility: [facility] Address: [address] [place], [place] [address] Performed By: #### 2 4321-2 ####[facility] LABCLIA [id number] [place] [address] [place] ESTIMATED GLOMERULAR FILTRATION RATE 105 mL/min/1.73m??? Normal >=60 [facility] Comment on above: Order Comment: Vahid castaneda Type: BLOOD SPECIMENOrdering Facility: [facility] Address: [address] [place] [id number] Result Comment: Alka mated Glomerular Filtration Rate (eGFR) is calculated using the 2020 CKD-EPI creatinine equation. This equation utilizes serum creatinine, sex, and age as parameters. The creatinine assay has traceable calibration to isotope dilution-mass spectrometry. Refer to KDIGO guidelines for clinical interpretation. In patients with unstable renal function, e.g. those with acute kidney injury, the eGFR may not accurately reflect actual GFR. Performed By: #### 2 4321-2 ####[facility] LABCLIA [id number] [place] [address] [place] Glucose [Mass/Vol] 112 mg/dL High 74-99 [facility] Comment on above: Order Comment: Vahid castaneda Type: BLOOD SPECIMENOrdering Facility: [facility] Address: [address] [place] [address] Result Comment: The [place] Diabetes Association (ADA) provides guidance for cutoff values for fasting glucose and random glucose. The ADA defines fasting as no caloric intake for at least 8 hours. Fasting plasma glucose results between 100 to 125 mg/dL indicate increased risk for diabetes (prediabetes). Fasting plasma glucose results greater than or equal to 126 mg/dL meet the criteria for diagnosis of diabetes. In the absence of unequivocal hyperglycemia, results should be confirmed by repeat testing. In a patient with classic symptoms of hyperglycemia or hyperglycemic crisis, random plasma glucose results greater than or equal to 200 mg/dL meet the criteria for diagnosis of diabetes. Reference: Standards of Medical Care in Diabetes 2016, [place] Diabetes Association. Diabetes Care. 2016.39(Suppl 1). Performed By: #### 2 4321-2 ####[facility] LABIA [id number] [place] [address] [place] Potassium [Moles/Vol] 4.3 mmol/L Normal 3.7-5.1 [facility] Comment on above: Order Comment: Vahid castaneda Type: BLOOD SPECIMENOrdering Facility: [facility] Address: [address] [place] [address] Performed By: #### 2 4321-2 ####[facility] LABCLIA [id number] [place] [address] [place] Sodium [Moles/Vol] 143 mmol/L Normal 136-144 [facility] Comment on above: Order Comment: Speci men Type: BLOOD SPECIMENOrdering Facility: [facility] Address: [address] [place], [place] [address] Performed By: #### 2 4321-2 ####[facility] LABIA [id number] [place] [address] [place] Urea nitrogen [Mass/Vol] 19 mg/dL Normal 9-24 [facility] Comment on above: Order Comment: Speci men Type: BLOOD SPECIMENOrdering Facility: [facility] Address: [address] [place], [place] [address] Performed By: #### 2 4321-2 ####[facility] LABIA [id number] [place] [address] [place] CBC panel Auto (Bld)on 06-22 Erythrocyte distribution width (RBC) [Ratio] 12.2 % Normal 11.5-15.0 [facility] Comment on above: Order Comment: Speci men Type: BLOOD SPECIMENOrdering Facility: [facility] Address: [address] [place] [address] Performed By: #### 5 8410-2 ####[facility] LABIA [id number] [place] [address] [place] Hematocrit (Bld) [Volume fraction] 45.1 % Normal 39.0-51.0 [facility] Comment on above: Order Comment: Speci men Type: BLOOD SPECIMENOrdering Facility: [facility] Address: [address] [place], [place] [address] Performed By: #### 5 8410-2 ####[facility] LABCLIA [id number] [place] [address] [place] Hemoglobin (Bld) [Mass/Vol] 14.9 g/dL Normal 13.0-17.0 [facility] Comment on above: Order Comment: Speci men Type: BLOOD SPECIMENOrdering Facility: [facility] Address: [address] [place] [address] Performed By: #### 5 8410-2 ####[facility] LABIA [id number] [address] [place] MCH (RBC) [Entitic mass] 30.0 pg Normal 26.0-34.0 [facility] Comment on above: Order Comment: Speci men Type: BLOOD SPECIMENOrdering Facility: [facility] Address: [address] [place] [address] Performed By: #### 5 8410-2 ####[facility] LABIA [id number] [address] STATES [facility] MCHC (RBC) [Mass/Vol] 33.0 g/dL Normal 30.5-36.0 [facility] Comment on above: Order Comment: Speci men Type: BLOOD SPECIMENOrdering Facility: [facility] Address: [address] [place], [place] [address] Performed By: #### 5 8410-2 ####[facility] LABIA [id number] [address] [place] MCV (RBC) [Entitic vol] 90.7 fL Normal 80.0-100.0 [facility] Comment on above: Order Comment: Speci men Type: BLOOD SPECIMENOrdering Facility: [facility] Address: [address] [place], [place] [address] Performed By: #### 5 8410-2 ####[facility] LABIA [id number] [place] [address] [place] Nucleated RBC (Bld) [#/Vol] 10*3/uL Normal <0.01 [facility] Comment on above: Order Comment: Speci men Type: BLOOD SPECIMENOrdering Facility: [facility] Address: [address] [place], [place] [address] Performed By: #### 5 8410-2 ####[facility] LABCLIA [id number] [place] [address] [place] Platelet mean volume (Bld) [Entitic vol] 10.2 fL Normal 9.0-12.7 [facility] Comment on above: Order Comment: Speci men Type: BLOOD SPECIMENOrdering Facility: [facility] Address: [address] [place], [place] [address] Performed By: #### 5 8410-2 ####[facility] LABCLIA [id number] [place] [address] [place] Platelets (Bld) [#/Vol] 239 10*3/uL Normal 150-400 [facility] Comment on above: Order Comment: Speci men Type: BLOOD SPECIMENOrdering Facility: [facility] Address: [address] [place], [place] [address] Performed By: #### 5 8410-2 ####[facility] LABCLIA [id number] [place] [address] [place] RBC (Bld) [#/Vol] 4.97 10*6/uL Normal 4.20-6.00 [facility] Comment on above: Order Comment: Speci men Type: BLOOD SPECIMENOrdering Facility: [facility] Address: [address] [place], [place] [address] Performed By: #### 5 8410-2 ####[facility] LABCLIA [id number] [place] [address] [place] WBC (Bld) [#/Vol] 18.44 10*3/uL High 3.70-11.00 [facility] Comment on above: Order Comment: Speci men Type: BLOOD SPECIMENOrdering Facility: [facility] Address: [address] [place] [phone] Performed By: #### 5 8410-2 ####[facility] LABCLIA [id number] LUIS WAITE [id number] OF [facility] CNOVon 06-22-2022 CNOV Office Visit (CARCMN ) MILTON FRIEND ([id number]) 1960 M Date Time Provider Department 06/22/22 1:15 PM PEDRO ARANDA During your visit today, we recorded the following information about you: Pulse Respiration Blood pressure Weight 68/minute 16/minute 155/87 94.8 kg Pedro Aranda MD 06/22/2022 2:25 PM Signed [facility] [place] [facility] Department of Cardiovascular Medicine SECTION OF CLINICAL CARDIOLOGY OUTPATIENT VISIT DATE June 22, 2022 OUTPATIENT VISIT TYPE CONSULTATION PRIMARY CARE PHYSICIAN: Abril Yeboah MD [address] [place] [address] REFERRING PHYSICIAN Odessa Terry [address] [place] [address] CHIEF COMPLAINT: No chief complaint on file. HISTORY OF PRESENT ILLNESS: Cardiac consultation at the request of Dr. Odessa Terry.A copy of this consultation note will be provided to the requesting physician by way of shared Medical record or letter to requesting physician via US mail. Mr. Friend is a 62 year old male who is seen today for preoperative evaluation prior to A. fib ablation and watchman the device placement. The patient had experienced an episode of atrial fibrillation in 2013 with no recurrence since then till April 2021 when he was experiencing profound symptoms of fatigue. He was placed on Eliquis and cardioverted on 05/31/2021. He was then referred to Dr. 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 His stroke was attributed to hypertension and intracranial angiogram at the time revealed no abnormalities. He was initiated on anticoagulation therapy and referred to Dr. Terry (09/2021). Shortly after he experienced recurrent episodes of atrial fibrillation with cardioversion. He was then reevaluated and the plan is currently to proceed with A. fib ablation due to significant symptoms of fatigue and watchman device placement given increased risk of bleeding. He denies chest pain, shortness of breath, orthopnea, cough, edema, palpitations, PND, lightheadedness or syncope. NURSING INTAKE: Mr. Friend is a 62 yo male presenting for evaluation for Watchman procedure. He denies any cardiac symptoms at this time. 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) 01/26/2005 Right thalamic and right internal capsule hemorrhage on asa at the time., unsure of dose PAST SURGICAL HISTORY Procedure Laterality Date CARDIAC CATH 10/28/2003 CARDIOVERSION 05/31/2021 CARDIOVERSION 12/13/2021 OPEN REPAIR OF ROTATOR CUFF ACUTE 10/28/2003 Rotator cuff repair right x 2 SOCIAL HISTORY Social History Tobacco Use Smoking status: Never Smokeless tobacco: Never Vaping Use Vaping Use: Never used Substance Use Topics Alcohol use: Yes Comment: social, rarely Drug use: No FAMILY HISTORY Problem Relation Age of Onset Coronary Artery Disease Mother PPM Diabetes Mother Hyperlipidemia Mother Hypertension Mother Cancer Mother multiple Heart Father afib, stroke Stroke Father hemorrhagic stroke No Known Problems Sister ALLERGIES: ALLERGIES Allergen Reactions Brynn Inhibitors Swelling Amino Acids Other: See Comments Ciprofloxacin Other: See Comments Lobster (Crustacean* Unknown MEDICATIONS: sodium chloride 0.9 %, flush, (BD POSIFLUSH) syringe Inject 2-10 mL intravenously as directed. For Echo procedure diazePAM (VALIUM) 5 mg tablet For flying sildenafil (VIAGRA) 100 mg tablet TAKE HALF(1/2) OR ONE(1) TABLET BY MOUTH 30-60 MINUTES PRIOR TO SEXUAL ACTIVITY glucosamine/chondr christiansen A sod (OSTEO BI-FLEX ORAL) Take by mouth once daily. hydrALAZINE (APRESOLINE) 50 mg tablet Take 1 tablet by mouth three times daily. ELIQUIS 5 mg tab(s) TAKE 1 TABLET BY MOUTH TWICE A DAY cholecalciferol (VITAMIN D-3) 5,000 unit tab Take 5,000 Units by mouth once daily. Magnesium Oxide 250 mg magnesium tab Take 1 tablet by mouth. omeprazole (PRILOSEC) 20 mg capsule Take 20 mg by mouth once daily. hydrochlorothiazide 25 mg tablet Take 25 mg by mouth once daily. zolpidem (AMBIEN) 10 mg tab Take 5 mg by mouth daily at bedtime. atenolol 50 mg tablet Take 50 mg by mouth twice daily. Verapamil SR 240 mg 24 hr capsule Take 240 mg by mouth daily at bedtime. REVIEW OF SYSTEMS: Positives in bold GENERAL: Negative for: Weight loss or gain, Fever or Chills, Weakness and Sleep difficulties. HEENT: Negative for: Headache, Impaired Vision, Glasses, Hearing Impairment, Ringing in Ears, Nosebleeds, Poor dental care, Bleeding Gums, Dentures NECK: (more content not included)... Normal [facility] CONFIRM BLOOD TYPEon 022 ABO O Normal [facility] Comment on above: Order Comment: Speci men Type: BLOOD SPECIMENOrdering Facility: [facility] Address: [address] [place] [address] Performed By: #### C ONABO ####CC MAIN BLOOD BANKIA [id number] [address] [place] Rh Nom (Bld) Positive Normal [facility] Comment on above: Order Comment: Speci men Type: BLOOD SPECIMENOrdering Facility: [facility] Address: [address] [place] [address] Performed By: #### C ONABO ####CC MAIN BLOOD BANKIA [id number] [place] [address] [place] ECG COMPLETEon 06-22-2022 ECG COMPLETE Ventricular Rate : 6 8 BPM Atrial Rate : 68 BPM P-R Interval : 168 ms QRS Duration : 100 ms Q-T Interval : 388 ms QTC Calculation(Bazett) : 412 ms Calculated P [place] : 29 degrees Calculated R [place] : -20 degrees Calculated T [place] : 3 degrees NORMAL SINUS RHYTHM MINIMAL VOLTAGE CRITERIA FOR LVH, MAY BE NORMAL VARIANT . BORDERLINE ECG Confirmed by DARA TURNER MD ([id number]) on 07/15/2022 2:28:42 PM NAME : MILTON FRIEND PID : [id number] : 1960 Gender : Male Race : ORD : [id number] Procedure Date : Jun 22 2022 11:55:39 Edit Date : Jul 15 2022 14:28:45 Diagnosis: NORMAL SINUS RHYTHM MINIMAL VOLTAGE CRITERIA FOR LVH, MAY BE NORMAL VARIANT . BORDERLINE ECG Confirmed by DARA TURNER MD ([id number]) on 07/15/2022 2:28:42 PM Test Reason : Location : [facility] : [facility]- Overread By : DARA TURNER MD Edited By : DARA TURNER MD Referred By : ODESSA TERRY Acquired by : TIA WARREN Normal [facility] TYPE AND SCREEN,30 DAYon ABO O Normal [facility] Comment on above: Order Comment: Speci men Type: BLOOD SPECIMENOrdering Facility: [facility] Address: [address] [place] [address] Performed By: #### T SCR30 ####CC MAIN BLOOD BANKCLIA [id number] [address] [place] HISTORICAL AB SCR STATUS Negative Normal [facility] Comment on above: Order Comment: Speci men Type: BLOOD SPECIMENOrdering Facility: [facility] Address: [address] [place] [address] Performed By: #### T SCR30 ####CC MAIN BLOOD BANKCLIA [id number] [place] [address] [place] Rh Nom (Bld) Positive Normal [facility] Comment on above: Order Comment: Speci men Type: BLOOD SPECIMENOrdering Facility: [facility] Address: [address] [place] [address] Performed By: #### T SCR30 ####CC MAIN BLOOD BANKCLIA [id number] [address] [address] [place] ANES POSTPROC EVALon 022 ANES POSTPROC EVAL HNO ID: [id number] Author: Bret Rincon MD Service: Anesthesiology Author Type: Anesthesiologist Type: Anesthesia Postprocedure Evaluation Filed: 12/13/2021 12:52 PM Note Text: POST ANESTHESIA EVALUATION NOTE : 1960 Procedure Summary Date: 12/13/21 Room / Location: CATH07 / CATH Anesthesia Start: 937 Anesthesia Stop: 944 Procedure: CARDIOVERSION EXTERNAL ELECTIVE (N/A ) Diagnosis: Persistent atrial fibrillation (HCC) (Persistent atrial fibrillation (HCC) [I48.19]) Surgeons: Bull Munoz MD Responsible Provider: Bret Rincon MD Anesthesia Type: MAC ASA Status: 3 Anesthesia Type: MAC Last Vitals Vitals Value Taken Time BP 141/84 12/13/21 1045 12/13/21 1251 Pulse 64 12/13/21 1045 Resp 16 12/13/21 1045 SpO2 97 % 12/13/21 1000 Vitals shown include unvalidated device data. Post Anesthesia Patient Status Patient Evaluation: PACU. PACU/ICU Patient Condition: stable. Neurological Status: aware and responsive. Pulmonary Status: breathing comfortably on room air Airway Control: returned to baseline unsupported. Cardiovascular Status: stable. Pain Management: clinically adequate Postoperative Hydration: acceptable. Intraoperative Events: no significant anesthesia events Post Operative Nausea/Vomiting Status: no significant post operative nausea or vomiting Anesthetic Observations: Recommendation: continue current plan of care. Anesthesia Observations No Documentation SIGNATURE: Bret Rincon MD PATIENT NAME: Milton Friend DATE: December 13, 2021 TIME: 12:51 PM CSN: [id number] [employer] ANES PRE-OPon 12-13-2021 ANES PRE-OP HNO ID: [id number] Author: Bret Rincon MD Service: Anesthesiology Author Type: Anesthesiologist Type: Anesthesia Preprocedure Evaluation Filed: 12/13/2021 9:17 AM Note Text: ANESTHESIOLOGY DAY OF SURGERY NOTE : 1960 Procedure Information Date/Time: 12/13/21 1000 Procedure: CARDIOVERSION EXTERNAL ELECTIVE (N/A ) Location: CATH07 / CATH Surgeons: Bull Munoz MD Estimated body mass index is 33.98 kg/m? as calculated from the following: Height as of this encounter: 167.6 cm (5' 6 ). Weight as of this encounter: 95.5 kg (210 lb 8 oz). Most recent hematocrit and potassium results: Hematocrit 48.2 05/31/2021 Potassium 4.1 05/31/2021 Relevant Problems CARDIO (+) Atrial fibrillation (HCC) (+) HTN (hypertension) (+) Unspecified cerebral artery occlusion with cerebral infarction NEURO-PSYCH (+) Unspecified cerebral artery occlusion with cerebral infarction I - PHYSICAL EVALUATION AIRWAY Patient intubated: No. Tracheostomy tube not present Mallampati: II. TM distance: >3 FB. Neck ROM: full ROM without neurological symptoms. Mouth opening: adequate. Short neck: no. Thick neck: no DENTAL Dental findings: teeth intact. Additional exam findings: no II - ANESTHESIA PLAN ASA Score: 3 Anesthetic Plan: MAC The patient is not a current smoker. NPO Status: adequate Monitoring plan: standard ASA. Postoperative analgesic plan: multimodal analgesia. Anesthetic Risks, Benefits, Alternatives, Personnel Discussed. Consent obtained from: patient.Patient / Surrogate agrees to blood products: Yes Potential Anesthesia issues that may suggest increased risk of complications or contraindication to planned procedure: none. Vitals Value Taken Time BP 149/123 12/13/21 0835 Pulse 102 12/13/21 0835 Resp Temp 36.5 ?C (97.7 ?F) 12/13/21 0835 SpO2 98 % 12/13/21 0835 No current facility-administered medications on file as of 12/13/2021. Outpatient Medications as of 12/13/2021 Medication Sig - cholecalciferol (VITAMIN D-3) 5,000 unit tab Take 5,000 Units by mouth once daily. - Magnesium Oxide 250 mg magnesium tab Take 1 tablet by mouth. - apixaban (ELIQUIS) 5 mg tab(s) Take 1 tablet by mouth twice daily. - omeprazole (PRILOSEC) 20 mg capsule Take 20 mg by mouth once daily. - hydrochlorothiazide 25 mg tablet Take 25 mg by mouth once daily. - zolpidem (AMBIEN) 10 mg tab Take 5 mg by mouth daily at bedtime. - atenolol 50 mg tablet Take 50 mg by mouth twice daily. - Verapamil SR 240 mg 24 hr capsule Take 240 mg by mouth daily at bedtime. - hydrALAZINE 25 mg tablet Take 25 mg by mouth three times daily. I have interviewed and examined the patient. I have reviewed the medical record and/or the pre-anesthesia evaluation, pertinent labs, and test results. This contains updated information obtained within 48 hours of Surgery/Procedure. SIGNATURE: Bret Rincon MD PATIENT NAME: Milton Friend DATE: December 13, 2021 TIME: 9:17 AM CSN: [id number] Normal [facility] Basic Metabolic Panlon 12-13 Anion gap [Moles/Vol] 8 mmol/L Low 9-18 [facility] Comment on above: Performed By: #### C FORTUNATO, BMP ####[place] [phone] Calcium [Mass/Vol] 9.0 mg/dL Normal 8.5-10.5 [facility] Comment on above: Performed By: #### C FORTUNATO, BMP ####[place] [phone] Chloride [Moles/Vol] 107 mmol/L Normal 98-110 [facility] Comment on above: Performed By: #### C FORTUNATO, BMP ####[place] [phone] CO2 [Moles/Vol] 26 mmol/L Normal 23-32 [facility] Comment on above: Performed By: #### C BC, BMP ####[place] [phone] Creatinine [Mass/Vol] 0.84 mg/dL Normal 0.70-1.40 [facility] Comment on above: Performed By: #### C BC, BMP ####[place] [phone] eGFR- Amer. >60 Normal >59 [facility] Comment on above: Performed By: #### C FORTUNATO, BMP ####[place] [phone] eGFR-All Other Races >60 Normal >59 [facility] Comment on above: Result Comment: eGFR (Estimated GFR) Units of measure: mL/min/1.73 meters squared eGFR is derived from the reexpressed MDRD Study equation using the following parameters: serum creatinine, age, gender and race. The creatinine assay has been calibrated to be traceable to IDMS. An eGFR <60 mL/min/1.73m2 for >3 months is consistent with chronic kidney disease. Refer to KDOQI guidelines for clinical interpretation. In patients with unstable renal function, e.g. those with acute kidney injury, the eGFR may not accurately reflect actual GFR. Note: On 12/23/2021, the eGFR calculation will be updated to the NKF-ASN Task Force recommended 2020 CKD-EPI creatinine equation which does not include a race variable. For more information or to access a 2020 CKD-EPI calculator, visit the [employer] website at kidney.org/professionals/kdoqi/gfr_calculator. Performed By: #### C BC, BMP ####[place] [phone] Glucose [Mass/Vol] 100 mg/dL Normal 65-100 [facility] Comment on above: Performed By: #### C BC, BMP ####[place] [phone] Potassium [Moles/Vol] 4.0 mmol/L Normal 3.5-5.0 [facility] Comment on above: Performed By: #### C BC, BMP ####[address] [phone] Sodium [Moles/Vol] 141 mmol/L Normal 135-146 [facility] Comment on above: Performed By: #### C BC, BMP ####[place] [phone] Urea nitrogen [Mass/Vol] 20 mg/dL Normal 10-25 [facility] Comment on above: Performed By: #### C BC, BMP ####[place] [phone] CBCon 12-13-2021 Absolute nRBC <0.01 Normal <0.01 [facility] Comment on above: Performed By: #### C BC, BMP ####[place] [phone] Erythrocyte distribution width (RBC) [Ratio] 12.7 % Normal 11.5-15.0 [facility] Comment on above: Performed By: #### C BC, BMP ####[place] [phone] Hematocrit (Bld) [Volume fraction] 47.3 % Normal 39.0-51.0 [facility] Comment on above: Performed By: #### C BC, BMP ####[place] [phone] Hemoglobin (Bld) [Mass/Vol] 16.2 g/dL Normal 13.0-17.0 [facility] Comment on above: Performed By: #### C BC, BMP ####[phone] MCH 29.8 pG Normal 26.0-34.0 [facility] Comment on above: Performed By: #### C BC, BMP ####[place] [phone] MCHC (RBC) [Mass/Vol] 34.2 g/dL Normal 30.5-36.0 [facility] Comment on above: Performed By: #### C BC, BMP ####[phone] MCV (RBC) [Entitic vol] 86.9 fL Normal 80.0-100.0 [facility] Comment on above: Performed By: #### C BC, BMP ####[place] [phone] Platelet mean volume (Bld) [Entitic vol] 10.3 fL Normal 9.0-12.7 [facility] Comment on above: Performed By: #### C BC, BMP ####[address] [phone] Platelets (Bld) [#/Vol] 253 10*3/uL Normal 150-400 [facility] Comment on above: Performed By: #### C BC, BMP ####[address] [phone] RBC (Bld) [#/Vol] 5.44 10*6/uL Normal 4.20-6.00 [facility] Comment on above: Performed By: #### C BC, BMP ####[address] [phone] WBC (Bld) [#/Vol] 8.72 10*3/uL Normal 3.70-11.00 [facility] Comment on above: Performed By: #### C BC, BMP ####[address] [phone] NURSING PROGon 12-13-2021 NURSING PROG HNO ID: [id number] Author: Ita Pabon RN Service: ? Author Type: Registered Nurse Type: Nursing Progress Note Filed: 12/13/2021 10:01 AM Note Text: Successful cardioversion in SR.Post ekg done. at bedside. VSS. given. Pt oliver diet without difficulty. talked with patient and . Normal [facility] OPERATIVE NOon 12-13-2021 OPERATIVE NO HNO ID: [id number] Author: Bull Munoz MD Service: Cardiovascular Medicine Author Type: Physician Type: Operative Report Filed: 12/13/2021 9:55 AM Note Text: Electrical Cardioversion Date: 12/13/2021 Pediatrics Physician: Bull Munoz MD Indication: atrial fib/flutter. Procedure: informed consent was obtained, a time out was performed; the patient was sedated with Brevital 50 mg IV. Then the patient received a biphasic, synchronized electrical shock of 200 Joules, which did not cardiovert him; he received a second synchronized biphasic shock of 360 Joules and cardioverted successfully from AF to sinus rhythm. He recovered uneventfully. There were no immediate complications noted. Sedation, MAC, or GETA provided by a professional other than the physician performing the procedure (Anesthesia) Conclusions: successful electrical cardioversion from AF to sinus rhythm. Bull Munoz MD [employer] ANES POSTPROC EVALon ANES POSTPROC EVAL HNO ID: [id number] Author: Devaughn Degroot DO Service: Anesthesiology Author Type: Anesthesiologist Type: Anesthesia Postprocedure Evaluation Filed: 05/31/2021 11:59 AM Note Text: POST ANESTHESIA EVALUATION NOTE : 1960 Procedure Summary Date: 05/31/21 Room / Location: [facility] / CATH Anesthesia Start: 1121 Anesthesia Stop: 1133 Procedures: ECHOCARDIOGRAM TRANSESOPHOGEAL, REAL TIME W/IMAGE DOCUMENT (2D) (N/A Throat) CARDIOVERSION EXTERNAL ELECTIVE (N/A ) Diagnosis: Paroxysmal atrial fibrillation (HCC) (Paroxysmal atrial fibrillation (HCC) [I48.0]) Surgeons: Milton Alberts MD Responsible Provider: Devaughn Degroot DO Anesthesia Type: MAC ASA Status: 3 Anesthesia Type: MAC Last vitals Vitals Value Taken Time BP 05/31/21 1158 Temp 05/31/21 1158 Pulse 61 05/31/21 1134 Resp 13 05/31/21 1134 SpO2 96 % 05/31/21 1134 Post Anesthesia Patient Status Patient Evaluation: PACU. PACU/ICU Patient Condition: stable. Neurological Status: aware and responsive. Pulmonary Status: breathing comfortably on room air Airway Control: returned to baseline unsupported. Cardiovascular Status: stable. Pain Management: clinically adequate - multimodal analgesia pain management approach Postoperative Hydration: acceptable. Intraoperative Events: no significant anesthesia events Post Operative Nausea/Vomiting Status: no significant post operative nausea or vomiting Anesthetic Observations: Recommendation: continue current plan of care. No complications documented. SIGNATURE: Devuaghn Degroot DO PATIENT NAME: Milton Friend DATE: May 31, 2021 TIME: 11:58 AM CSN: [id number] [employer] ANES PRE-OPon 05-31-2021 ANES PRE-OP HNO ID: [id number] Author: Devaughn Degroot DO Service: Anesthesiology Author Type: Anesthesiologist Type: Anesthesia Preprocedure Evaluation Filed: 05/31/2021 9:48 AM Note Text: ANESTHESIOLOGY DAY OF SURGERY NOTE : 1960 Procedure(s) (LRB): ECHOCARDIOGRAM TRANSESOPHOGEAL, REAL TIME W/IMAGE DOCUMENT (2D) (N/A) CARDIOVERSION EXTERNAL ELECTIVE (N/A) Surgeon(s): Milton Alberts MD Estimated body mass index is 33.57 kg/m? as calculated from the following: Height as of this encounter: 167.6 cm (5' 6 ). Weight as of this encounter: 94.3 kg (208 lb). Most recent hematocrit and potassium results: Hematocrit 42.3 06/07/2014 Potassium 3.5 06/07/2014 Relevant Problems CARDIO (+) Atrial fibrillation (HCC) (+) Hypertension (+) Unspecified cerebral artery occlusion with cerebral infarction NEURO-PSYCH (+) Unspecified cerebral artery occlusion with cerebral infarction I - PHYSICAL EVALUATION AIRWAY Patient intubated: No. Tracheostomy tube not present Mallampati: I. TM distance: >3 FB. Neck ROM: full ROM without neurological symptoms. Mouth opening: adequate. Short neck: no. Thick neck: no DENTAL Dental findings: teeth intact. II - ANESTHESIA PLAN ASA Score: 3 Anesthetic Plan: MAC The patient is not a current smoker. NPO Status: adequate Monitoring plan: standard ASA. Postoperative analgesic plan: multimodal analgesia. Anesthetic Risks, Benefits, Alternatives, Personnel Discussed. Consent obtained from: patient.Patient / Surrogate agrees to blood products: blood products not planned Significant changes in the patient condition since the History and Physical, not otherwise documented in primary service progress note: no. Potential Anesthesia issues that may suggest increased risk of complications or contraindication to planned procedure: none. Vitals Value Taken Time BP Pulse 86 05/31/21 0937 Resp 18 05/31/21 0937 Temp SpO2 95 % 05/31/21 0937 No current facility-administered medications on file as of 05/31/2021. Outpatient Medications as of 05/31/2021 Medication Sig - omeprazole (PRILOSEC) 20 mg capsule - hydrochlorothiazide 25 mg tablet Take 25 mg by mouth once daily. - zolpidem (AMBIEN) 10 mg tab Take 5 mg by mouth daily at bedtime. - atenolol 50 mg tablet Take 50 mg by mouth twice daily. - Verapamil SR 240 mg 24 hr capsule Take 240 mg by mouth daily at bedtime. - hydrALAZINE 25 mg tablet Take 25 mg by mouth three times daily. - lisinopril 20 mg tablet Take 20 mg by mouth once daily. - predniSONE (DELTASONE) 20 mg tablet Take 60 mg by mouth as needed. - RANITIDINE HCL (ZANTAC ORAL) Take by mouth once daily. (Patient not taking: Reported on 05/26/2021 ) - DM/P-EPHED/ACETAMINOPH/ DOXYLAM (NYQUIL ORAL) Take by mouth daily at bedtime. (Patient not taking: Reported on 05/26/2021 ) - pravastatin 20 mg tablet Take 20 mg by mouth once daily. I have interviewed and examined the patient. I have reviewed the medical record and/or the pre-anesthesia evaluation, pertinent labs, and test results. This contains updated information obtained within 48 hours of Surgery/Procedure. SIGNATURE: Devaughn Degroot DO PATIENT NAME: Milton Friend DATE: May 31, 2021 TIME: 9:47 AM CSN: [id number] Normal [facility] Basic Metabolic Panlon 05-31 Anion gap [Moles/Vol] 11 mmol/L Normal 9-18 [facility] Comment on above: Performed By: #### C FORTUNATO BMP ####[address] [phone] Calcium [Mass/Vol] 9.4 mg/dL Normal 8.5-10.5 [facility] Comment on above: Performed By: #### C FORTUNATO, BMP ####[address] [phone] Chloride [Moles/Vol] 108 mmol/L Normal 98-110 [facility] Comment on above: Performed By: #### C FORTUNATO, BMP ####[address] [phone] CO2 [Moles/Vol] 24 mmol/L Normal 23-32 [facility] Comment on above: Performed By: #### C FORTUNATO, BMP ####[address] [phone] Creatinine [Mass/Vol] 0.83 mg/dL Normal 0.70-1.40 [facility] Comment on above: Performed By: #### C BC, BMP ####[place] [phone] eGFR- Amer. >60 Normal >60 [facility] Comment on above: Performed By: #### C BC, BMP ####[place] [phone] eGFR-All Other Races >60 Normal >60 [facility] Comment on above: Result Comment: eGFR (Estimated GFR) Units of measure: mL/min/1.73 meters squared eGFR is derived from the reexpressed MDRD Study equation using the following parameters: serum creatinine, age, gender and race. The creatinine assay has been calibrated to be traceable to IDMS. An eGFR <60 mL/min/1.73m2 for >3 months is consistent with chronic kidney disease. Refer to KDOQI guidelines for clinical interpretation. In patients with unstable renal function, e.g. those with acute kidney injury, the eGFR may not accurately reflect actual GFR. Performed By: #### C BC, BMP ####[place] [phone] Glucose [Mass/Vol] 100 mg/dL Normal 65-100 [facility] Comment on above: Performed By: #### C BC, BMP ####[place] [phone] Potassium [Moles/Vol] 4.1 mmol/L Normal 3.5-5.0 [facility] Comment on above: Performed By: #### C BC, BMP ####[place] [phone] Sodium [Moles/Vol] 143 mmol/L Normal 135-146 [facility] Comment on above: Performed By: #### C BC, BMP ####[place] [phone] Urea nitrogen [Mass/Vol] 16 mg/dL Normal 10-25 [facility] Comment on above: Performed By: #### C BC, BMP ####[place] [phone] CBCon 05-31-2021 Absolute nRBC <0.01 Normal <0.01 [facility] Comment on above: Performed By: #### C BC, BMP ####[place] [phone] Erythrocyte distribution width (RBC) [Ratio] 12.6 % Normal 11.5-15.0 [facility] Comment on above: Performed By: #### C BC, BMP ####[place] [phone] Hematocrit (Bld) [Volume fraction] 48.2 % Normal 39.0-51.0 [facility] Comment on above: Performed By: #### C BC, BMP ####[place] [phone] Hemoglobin (Bld) [Mass/Vol] 16.6 g/dL Normal 13.0-17.0 [facility] Comment on above: Performed By: #### C BC, BMP ####[place] [id number] MCH 29.4 pG Normal 26.0-34.0 [facility] Comment on above: Performed By: #### C BC, BMP ####[place] [phone] MCHC (RBC) [Mass/Vol] 34.4 g/dL Normal 30.5-36.0 [facility] Comment on above: Performed By: #### C BC, BMP ####[place] [phone] MCV (RBC) [Entitic vol] 85.3 fL Normal 80.0-100.0 [facility] Comment on above: Performed By: #### C BC, BMP ####[place] [phone] Platelet mean volume (Bld) [Entitic vol] 10.5 fL Normal 9.0-12.7 [facility] Comment on above: Performed By: #### C BC, BMP ####[place] [id number] [place], [place] [phone] Platelets (Bld) [#/Vol] 247 10*3/uL Normal 150-400 [facility] Comment on above: Performed By: #### C BC, BMP ####[place] [phone] RBC (Bld) [#/Vol] 5.65 10*6/uL Normal 4.20-6.00 [facility] Comment on above: Performed By: #### C BC, BMP ####[place] [id number] [place] [phone] WBC (Bld) [#/Vol] 8.41 10*3/uL Normal 3.70-11.00 [facility] Comment on above: Performed By: #### C BC, BMP ####[place] [phone] NURSING PROGon 05-31-2021 NURSING PROG HNO ID: [id number] Author: Ita Pabon RN Service: ? Author Type: Registered Nurse Type: Nursing Progress Note Filed: 05/31/2021 11:59 AM Note Text: JOSE done. No clot Successful cardioversion in SR. Post EKg done. at bedside. VSS Theresa florencia given. Pt oliver diet without difficulty. talked with patient and family . Meds to the bed used for Eliquis To start eliquis today. Normal [facility] OPERATIVE NOon 05-31-2021 OPERATIVE NO HNO ID: [id number] Author: Milton Alberts MD Service: Cardiovascular Medicine Author Type: Physician Type: Operative Report Filed: 05/31/2021 11:31 AM Note Text: Cardioversion Indication: atrial fibrillation Conclusions/ Recommendation: Successful cardioversion of atrial fib to sinus, eliquis for 3 weeks and referral placed for Watchman device at [facility]. Procedure: The patient was taken to the pre-post cardivascular procedure unit. Informed consent was obtained. A transeophageal echo was performed prior to the procedure . There was no thrombus detected. Deep Sedation : provided by Anesthesia consisting of continuous ECG, pulse oxymetry, ET CO2 , and cardiopulmonary monitoring. This was performed by the anesthesiologist / retail project merchandiser and Cardiology Nurse, overseen by the performing physician(s). , for my intra service time of 20mins Defibrillator pads were placed anterior and posterior positions with a 200J biphasic shock delivered in synchronized manner with the patient converting from atrial fibrillation to sinus rhythm . The patient was awake and alert following the procedure and grossly intact neurologically. There were no complications. This procedure was performed on no anti arrhythmic therapy and eliquis to be started today for 3 weeks as anticoagulation therapy as history of brain bleed. Milton Alberts MD May 31, 2021 11:28 AM [employer] OPERATIVE NO HNO ID: [id number] Author: Milton Alberts MD Service: Cardiovascular Medicine Author Type: Physician Type: Operative Report Filed: 05/31/2021 11:16 AM Note Text: Transesophageal Echo: Reviewed risk benefit of procedure including esophageal perforation, aspiration pneumonia and even very low risk of . Option of not performing this procedure also reviewed. Transesophageal Echo See SYNGO for complete echo report Indication: atrial fib Conclusions/ Recommedations : No thrombus with left atrial appendage well visualized , EF 55%, trace MR and TR, no shunt with saline bubble study Will proceed with cardioversion, 3 weeks of eliquis and referral for Watchman at [facility] Specimens: none Blood loss: none Moderate Sedation : Moderate Sedation provided by Cardiology Interventional Nursing Staff. Moderate sedation consisting of continuous ECG, pulse oxymetry and cardiopulmonary monitoring was performed by the Cardiology Nurse, overseen by the performing physician(s), for my intra service time of 45min. Sedative Drugs: Medication: Versed 2mg IV and Fentanyl 100mcg IV Complications: none Milton Alberts MD [employer] Vital Signs Date Time Vital Sign Value Performing Clinician Aleksandr maldonado 04-16-2023 10:26-0400 Body height 168.9 cm Odessa Terry MD Work Phone: [facility] 04-16-2023 10:26-0400 Body weight 97.52 kg Odessa Terry MD Work Phone: [facility] 04-16-2023 10:26-0400 Diastolic blood pressure 83 mm[Hg] Odessa Terry MD Work Phone: [facility] 04-16-2023 10:26-0400 Heart rate 79 /min Odessa Terry MD Work Phone: [facility] 04-16-2023 10:26-0400 Systolic blood pressure 129 mm[Hg] Odessa Terry MD Work Phone: [facility] 10-04-2022 12:40-0500 Body height 168.9 cm Odessa Terry MD Work Phone: [facility] 10-04-2022 12:40-0500 Body weight 95.71 kg Odessa Terry MD Work Phone: [facility] 10-04-2022 12:40-0500 Diastolic blood pressure 85 mm[Hg] Odessa Terry MD Work Phone: [facility] 10-04-2022 12:40-0500 Heart rate 54 /min Odessa Terry MD Work Phone: [facility] 10-04-2022 12:40-0500 Systolic blood pressure 141 mm[Hg] Odessa Terry MD Work Phone: [facility] 10-04-2022 11:15-0500 Diastolic blood pressure 81 mm[Hg] Transesophageal [facility] 10-04-2022 11:15-0500 Heart rate 60 /min Transesophageal [facility] 10-04-2022 11:15-0500 Respiratory rate 18 /min Transesophageal [facility] 10-04-2022 11:15-0500 SaO2% (BldA) [Mass fraction] 96 % Transesophageal [facility] 10-04-2022 11:15-0500 Systolic blood pressure 130 mm[Hg] Transesophageal [facility] 10-04-2022 09:46-0500 Body temperature 97 [degF] Transesophageal [facility] 06-22-2022 13:55-0400 Diastolic blood pressure 87 mm[Hg] Pedro Aranda MD Work Phone: [facility] 06-22-2022 13:55-0400 Systolic blood pressure 155 mm[Hg] Pedro Aranda MD Work Phone: [facility] 06-22-2022 13:52-0400 Body weight 94.8 kg Pedro Aranda MD Work Phone: [facility] 06-22-2022 13:52-0400 Heart rate 68 /min Pedro Aranda MD Work Phone: [facility] 06-22-2022 13:52-0400 Respiratory rate 16 /min Pedro Aranda MD Work Phone: [facility] 06-22-2022 13:52-0400 SaO2% (BldA) [Mass fraction] 96 % Pedro Aranda MD Work Phone: [facility] 01-29-2022 08:47-0400 Body weight 92.99 kg Milton Alberts MD Work Phone: [facility] 01-29-2022 08:47-0400 Diastolic blood pressure 93 mm[Hg] Milton Alberts MD Work Phone: [facility] 01-29-2022 08:47-0400 Heart rate 62 /min Milton Alberts MD Work Phone: [facility] 01-29-2022 08:47-0400 Systolic blood pressure 167 mm[Hg] Milton Alberts MD Work Phone: [facility] Encounters Encounter Date Encounter Type Care Provider Facility Start: 03-24-2024 ambulatory Facility:[facility] Start: 09-12-2023 End: 09-12-2023 ambulatory KERLINE B APLING Not Available Start: 09-09-2023 End: 09-09-2023 ambulatory KERLINE B APLING Not Available Start: 04-26-2023 Telephone encounter Odessa Terry MD Work Phone: Cardiology Comment on above: Patient Question (As prin) Start: 04-16-2023 End: 04-16-2023 ambulatory ABRIL Nic OBINNA Facility:[facility] Start: 04-16-2023 End: 04-16-2023 Patient encounter procedure Odessa Terry MD Work Phone: Cardiology Comment on above: 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 Facility: Start: 02-20-2023 Telephone encounter Odessa Terry MD Work Phone: Cardiology Comment on above: Patient Question (Ever hitchcock left a VM on Device Clinic line, want to know the model number of the Watchman that was implanted in the fall. Please call the patient at [phone]) Patient Question Start: 11-28-2022 Refill Milton temple MD Work Phone: Cardiology Comment on above: Refill Request Start: 10-04-2022 End: 10-04-2022 ambulatory ABRIL YEBOAH Facility:[facility] Start: 10-04-2022 End: 10-04-2022 Patient encounter procedure Odessa Terry MD Work Phone: Cardiology Comment on above: Atrial fibrillation, persistent (HCC) (Primary Dx) Start: 10-04-2022 End: 10-04-2022 ambulatory ABRIL Lucero Sudheer Facility:[facility] Start: 10-04-2022 End: 10-04-2022 Patient encounter procedure Transesophageal Echo [facility] Comment on above: Persistent atrial fi brillation (HCC) Start: 10-03-2022 Telephone encounter Leann Lewis RN Cardiology Comment on above: Reminder Call (jose) Start: 09-27-2022 Arrhythmia TTM Odessa Sanchez i, MD Work Phone: [facility] Department Start: 09-27-2022 Recurring Plan Odessa Sanchez i, MD Work Phone: [facility] Start: 09-06-2022 Arrhythmia TTM Odessa Sanchez i, MD Work Phone: [facility] Department Start: 09-06-2022 Recurring Plan Odessa Sanchez i, MD Work Phone: [facility] Start: 08-30-2022 Arrhythmia TTM Odessa Sanchez i, MD Work Phone: [facility] Department Start: 08-30-2022 Recurring Plan Odessa Sanchez i, MD Work Phone: [facility] Start: 08-20-2022 Arrhythmia TTM Odessa Sanchez i, MD Work Phone: [facility] Start: 08-20-2022 Recurring Plan Odessa Sanchez i, MD Work Phone: [facility] Start: 08-10-2022 Arrhythmia TTM Odessa Sanchez i, MD Work Phone: [facility] Department Start: 08-10-2022 Recurring Plan Odessa Sanchez i, MD Work Phone: [facility] Start: 08-03-2022 Arrhythmia TTM Odessa Sanchez i, MD Work Phone: [facility] Start: 08-03-2022 Recurring Plan Odessa Sanchez i, MD Work Phone: [facility] Start: 07-20-2022 Arrhythmia TTM Odessa Sanchez i, MD Work Phone: [facility] Department Start: 07-20-2022 Recurring Plan Odessa Sanchez i, MD Work Phone: [facility] Start: 07-11-2022 Arrhythmia TTM Odessa Sanchez i, MD Work Phone: [facility] Department Start: 07-11-2022 Recurring Plan Odessa Sanchez i, MD Work Phone: [facility] Start: 06-26-2022 ambulatory Odessa Sanchez i, MD Work Phone: Cardiology Comment on above: Persistent atrial fi brillation (HCC) (Primary Dx) Start: 06-26-2022 Telephone encounter Leena DAVIS Comment on above: Follow Up Phone Call (Relate care discharge follow [id number] clear) Start: 06-25-2022 End: 06-26-2022 ambulatory Odessa Terry MD Work Phone: Cardiology Comment on above: transmitter Start: 06-25-2022 End: 06-25-2022 Evaluation and management of inpatient ODESSA TERRY Facility:[facility] Start: 06-22-2022 Encounter for preprocedural cardiovascular examination PEDRO ARANDA [facility] Start: 06-22-2022 End: 06-23-2022 ambulatory Odessa Terry MD Work Phone: Cardiology Comment on above: Patient Education (E PS-PVI + Watchman) Start: 06-22-2022 End: 06-22-2022 Patient encounter procedure Pedro Aranda MD Work Phone: Cardiology Comment on above: Preop cardiovascular exam (Primary Dx); Paroxysmal atrial fibrillation (HCC) [I48.0 (ICD-10-CM)]; 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) [I61.2 (ICD-10-CM)] Start: 06-22-2022 End: 06-22-2022 Patient encounter status Pedro Aranda MD Work Phone: Cardiology Start: 06-12-2022 Telephone encounter Odessa Terry MD Work Phone: Cardiology Comment on above: Patient Update (Resc hedule procedure request ) Start: 06-11-2022 Telephone encounter Odessa Terry MD Work Phone: Cardiology Comment on above: Patient Update (COVI D) Start: 05-14-2022 Orders Only Odessa Sanchez i, MD Work Phone: Cardiology Comment on above: Persistent atrial fi brillation (HCC) (Primary Dx) Start: 05-10-2022 Telephone encounter Odessa Terry MD Work Phone: Cardiology Comment on above: Schedule Surgery (PV I ablation+Watchman) Start: 05-04-2022 Telephone encounter Odessa Terry MD Work Phone: Cardiology Comment on above: Patient Update Start: 01-29-2022 End: 01-29-2022 Patient encounter procedure Milton Alberts MD Work Phone: Cardiology Comment on above: Paroxysmal atrial fi brillation (HCC) (Primary Dx); Primary hypertension Persistent atrial fi brillation (HCC) (Primary Dx); Primary hypertension Start: 12-11-2021 Orders Only Bull pearl MD Work Phone: Cardiology Comment on above: Atrial fibrillation, unspecified type (HCC) (Primary Dx) Procedures Date Procedure Procedure Detail Performing Clinician Start: 03-12-[address] MEREDITH YEBOAH . Comment on above: Performed By: #### P [facility] #### [facility] [address] [place] [address] Dr. Hortencia Conley Start: 10-04-2022 Echo transthorc r-t 2d w/wo m-mode rec f-up/lmtd Polly Alvarez APRN.MARTHA Work Phone: Start: 09-27-2022 ARRHYTHMIA TRANS TEL E MEASURE Odessa Terry MD Work Phone: Start: 09-06-2022 ARRHYTHMIA TRANS TEL E MEASURE Odessa Terry MD Work Phone: Start: 08-30-2022 ARRHYTHMIA TRANS TEL E MEASURE Odessa Terry MD Work Phone: Start: 08-20-2022 ARRHYTHMIA TRANS TEL E MEASURE Odessa Terry MD Work Phone: Start: 08-10-2022 ARRHYTHMIA TRANS TEL E MEASURE Odessa Terry MD Work Phone: Start: 08-03-2022 ARRHYTHMIA TRANS TEL E MEASURE Odessa Terry MD Work Phone: Start: 07-20-2022 ARRHYTHMIA TRANS TEL E MEASURE Odessa Terry MD Work Phone: Start: 07-11-2022 ARRHYTHMIA TRANS TEL E MEASURE Odessa Terry MD Work Phone: Start: 06-22-2022 Antibody screen ABRIL YEBOAH Comment on above: Order Comment: Speci men Type: BLOOD SPECIMENOrdering Facility: [facility] Address: [address] [place] [address] Performed By: #### T [id number] ####CC MAIN BLOOD BANKCLIA [id number] [address] Plan of Treatment Date Care Activity Detail Author Start: 03-12-2028 PROSTATE CANCER SCRE ENING DISCUSSION PROSTATE CANCER SCREENING DISCUSSION [facility] Start: 06-22-2025 DIABETES SCREEN DIABETES SCREEN [facility] Start: 12-13-2024 DIABETES SCREEN DIABETES SCREEN [facility] Start: 06-28-2023 Influenza vaccination INFLUENZA (#1) [facility] Start: 10-28-2022 DEPRESSION ASSESSMENT DEPRESSION ASS ESSMENT [facility] Start: 06-29-2022 COVID-19 VACCINE (5 - Booster for Pfizer series) COVID-19 VACCINE (5 - Booster for Pfizer series) [facility] Start: 06-28-2022 Influenza vaccination INFLUENZA (#1) [facility] Start: 05-14-2022 End: 05-14-2023 Basic metabolic 2000 panel - Serum or Plasma BASIC METABOLIC PNL Lab Routine Persistent atrial fibrillation (HCC) Expected: 05/14/2022, Expires: 05/14/2023 [facility] Work Phone: Comment on above: Expected: 05/14/2022 , Expires: 05/14/2023 Start: 05-14-2022 End: 05-14-2023 CBC panel - Blood by Automated count CBC Lab Routine Persistent atrial fibrillation (HCC) Expected: 05/14/2022, Expires: 05/14/2023 [facility] Work Phone: Comment on above: Expected: 05/14/2022 , Expires: 05/14/2023 Start: 05-14-2022 End: 05-14-2023 CONFIRM BLOOD TYPE CONFIRM BLOOD TYPE Blood Bank Routine Persistent atrial fibrillation (HCC) Expected: 05/14/2022, Expires: 05/14/2023 [facility] Work Phone: Comment on above: Expected: 05/14/2022 , Expires: 05/14/2023 Start: 05-14-2022 End: 05-14-2023 SARS-CoV-2 (COVID-19) RNA [Presence] in Respiratory specimen by EDMAR with probe detection PRE-PROCEDURE & PRE-OPERATIVE COVID Microbiology Routine Persistent atrial fibrillation (HCC) Expected: 05/14/2022, Expires: 05/14/2023 [facility] Work Phone: Comment on above: Expected: 05/14/2022 , Expires: 05/14/2023 Start: 05-14-2022 End: 05-14-2023 TYPE AND SCREEN,30 DAY TYPE AND SCREEN,30 DAY Blood Bank Routine Persistent atrial fibrillation (HCC) Expected: 05/14/2022, Expires: 05/14/2023 [facility] Work Phone: Comment on above: Expected: 05/14/2022 , Expires: 05/14/2023 Start: 02-20-2022 COVID-19 VACCINE (3 - Booster) COVID-19 VACCINE (3 - Booster) [facility] Start: 10-28-2021 DEPRESSION ASSESSMENT DEPRESSION ASS ESSMENT [facility] Start: 2017 PROSTATE CANCER SCRE ENING DISCUSSION PROSTATE CANCER SCREENING DISCUSSION [facility] Start: 02-08-2012 SHINGRIX VACCINE (1 of 2) BLACKBURN GRIX VACCINE (1 of 2) [facility] Start: 2007 COLOGUARD (FIT-DNA) COLOGUARD (FIT-D NA) [facility] Start: 2007 Colonoscopy COLONOSCOPY [facility] Start: 2007 COLORECTAL CANCER SCREENING COLORECTAL CANCER SCREENING [facility] Start: [address] COLONOGRAPHY [facility] Start: 2007 FECAL OCCULT BLOOD FECAL OCCULT BLOO D [facility] Start: 2007 SIGMOIDOSCOPY SIGMOIDOSCOPY [facility] Start: 1997 LIPID SCREEN LIPID SCREEN [facility] Start: 1981 Urine microalbumin profile DTAP,TDAP,TD (1 - Tdap) [facility] Start: 02-08-1980 ANNUAL PCP TEAM AIRPLANE COVERER JOEY DISEASE VISIT ANNUAL PCP TEAM CHRONIC DISEASE VISIT [facility] Start: 02-08-1980 BP CONTROLLED (<130/80) BP CONTROLLE D (<130/80) [facility] Start: 02-08-1980 HEPATITIS C SCREENING HEPATITIS C SC REENING [facility] Start: 02-08-1980 HIV SCREENING HIV SCREENING [facility] Start: 1974 Adult depression screening assessment DEPRESSION SCREENING [facility] End: 05-14-2023 ECG COMPLETE ECG COMPLETE ECG Routine Persistent atrial fibrillation (HCC) 1 Occurrences starting 05/14/2022 until 05/14/2023 [facility] Work Phone: Comment on above: 1 Occurrences starti ng 05/14/2022 until 05/14/2023 End: 06-26-2023 ECG COMPLETE ECG COMPLETE ECG Routine Persistent atrial fibrillation (HCC) 1 Occurrences starting 06/26/2022 until 06/26/2023 [facility] Work Phone: Comment on above: 1 Occurrences starti ng 06/26/2022 until 06/26/2023 End: 05-14-2023 ECHO TRANSESOPHAGEAL ECHO TRANSESOPHAGEAL Cardiology Routine Persistent atrial fibrillation (HCC) 1 Occurrences starting 05/14/2022 until 05/14/2023 [facility] Work Phone: Comment on above: 1 Occurrences starti ng 05/14/2022 until 05/14/2023 End: 06-26-2023 ECHO TRANSESOPHAGEAL ECHO TRANSESOPHAGEAL Cardiology Routine Persistent atrial fibrillation (HCC) 1 Occurrences starting 06/26/2022 until 06/26/2023 [facility] Work Phone: Comment on above: 1 Occurrences starti ng 06/26/2022 until 06/26/2023 ECHO TRANSESOPHAGEAL ECHO TRANSE SOPHAGEAL Cardiology Routine Atrial fibrillation, persistent (HCC) Ordered: 10/04/2022 [facility] Work Phone: Comment on above: Ordered: 10/04/2022 End: 06-26-2023 Echocardiography ECHO Cardiology Routine Persistent atrial fibrillation (HCC) 1 Occurrences starting 06/26/2022 until 06/26/2023 [facility] Work Phone: Comment on above: 1 Occurrences starti ng 06/26/2022 until 06/26/2023 End: 01-29-2023 EXERCISE STRESS ECG (WITHOUT IMAGING) EXERCISE STRESS ECG (WITHOUT IMAGING) Cardiology Routine Persistent atrial fibrillation (HCC) Primary hypertension 1 Occurrences starting 01/29/2022 until 01/29/2023 [facility] Work Phone: Comment on above: 1 Occurrences starti ng 01/29/2022 until 01/29/2023 [facility] Payers Date Payer Category Payer Medicare HU[employer]NA MEDICARE HU[employer]NA MEDICARE PPO [id number] 2020-Present [phone] [address] [place] [address] PPO [id number] 2020 Medicare HUMANA MEDICARE HU[employer]NA MEDICARE PPO [id number] 2020-Present [phone] [address] [place], [place] [id number] PPO [id number] 1962 Unknown [id number] 1962 Unknown [id number] 1962 Unknown [id number] 1959 Medicare [id number] Social History Date Type Detail Facility Start: 11-23-2013 End: 10-04-2022 Tobacco smoking status NHIS Never smoked tobacco [facility] Start: 11-23-2013 End: 10-04-2022 Tobacco use and exposure Smokeless tobacco non-user [facility] Start: 01-29-2022 End: 04-16-2023 Alcohol intake Current drinker of alcohol (finding) [facility] Start: 11-23-2013 History SDOH Alcohol Comment 2-3 drinks weekly [facility] Start: 1960 Sex Assigned At Not on file C [facility] Start: 11-11-2021 End: 06-25-2022 Exposure to SARS-CoV-2 (event) Not sure [facility] Start: 04-19-2022 Alcohol intake Ex-drinker (finding) [facility] Start: 05-15-2022 End: 06-27-2022 Exposure to SARS-CoV-2 (event) Unable to assess [facility] Start: 06-22-2022 History SDOH Alcohol Comment social, rarely [facility] Start: 06-11-2022 End: 06-21-2022 Exposure to SARS-CoV-2 (event) Yes [facility] Start: 04-16-2023 Alcohol Comment social, sips a couple times a week [facility] Clinical Notes 05-31-2021 to 04-29-2023 Telephone Encounter - Joy Greenwood RN - 04/29/2023 5:46 PM EDTTelephone Encounter - Karla Rausch - 04/26/2023 11:24 AM Geraldo Terry MD - 04/16/2023 10:30 AM EDTPatient Instructions Note Date & Type Note Facility 04-29-[address] Terry reviewed JOSE again to assess Watchman leak. OK to hold aspirin for procedure and resume afterwards. Joy Greenwood RN April 26, 2023 Patient Contact Number: [phone] (home) [phone] (cell) Patient last seen within the last year Yes Reason For Call: Medication Issue/Question: Patient is calling. He wanted to know when he should stop taking his Asprin, he will be having a procedure done on May 08. Please call and advise patient at the above number. Karla documented in this encounter [facility] 04-16-2023 Note HNO ID: [id number] Author: Odessa Terry MD Service: ? Author Type: Physician Type: Progress Notes Filed: 06/14/2023 3:15 PM Note Text: [facility] [place] [facility] Department of Cardiovascular Medicine SECTION OF CARDIAC PACING and ELECTROPHYSIOLOGY OUTPATIENT VISIT DATE April 16, 2023 OUTPATIENT VISIT TYPE ESTABLISHED PRIMARY CARE PHYSICIAN: Abril Yeboah [address] [place] [address] CHIEF COMPLAINT: AF HISTORY OF PRESENT ILLNESS/NURSING INTAKE HISTORY: Mr. Friend is a 63 year old male who presents today for follow-up visit s/p concomitant Watchman + PVI on 06/26/22. He history of recurrent, persistent symptomatic atrial fibrillation. Watchman indication was prior intracranial hemorrhage. He has a [id number] score of 3 for hypertension and prior stroke. He underwent Watchman + PVI 06/26/2022. He was last seen in office 10/04/2022 and JOSE showed minimal flow with no clear tract into the appendage. His Eliquis was stopped at his last visit. JOSE today showed EF=60%; Small infero-posterior leak remains (2.6mm x 2.4mm). He reports he may have had a couple of episodes of atrial fibrillation 3-4 months ago which lasted around 2 hours. He reports he went out of rhythm Saturday morning and believes he has been out since. He reports he felt more fatigued and had racing heartbeats. He endorses shortness of breath with exertion when he is out of rhythm. He denies chest pain, lightheadedness or syncope. He would like clearance for rotator cuff surgery. 1. How often on average, does your irregular heart rhythm (atrial fibrillation) occur? About once a year 2. How long on average, do the episodes of the irregular heart rhythm last? Several days or more 3. How often have you been bothered by this symptom in the past 4 weeks? Palpitations: a lot, Shortness of breath at rest: none, Shortness of breath during physical activity: very little, Exercise intolerance (fatigue during mild physical activity): a fair amount, Fatigue at rest: very little, and Lightheadedness/dizziness: none 4. Have you had an inpatient hospital admission within 30 days of your procedure? No 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) 01/26/2005 Right thalamic and right internal capsule hemorrhage on asa at the time., unsure of dose PAST SURGICAL HISTORY Procedure Laterality Date CARDIAC CATH 10/28/2003 CARDIOVERSION 05/31/2021 CARDIOVERSION 12/13/2021 OPEN REPAIR OF ROTATOR CUFF ACUTE 10/28/2003 Rotator cuff repair right x 2 PAST SURGICAL HISTORY OF 06/26/2022 Watchman and PVI SOCIAL HISTORY Social History Tobacco Use Smoking status: Never Smokeless tobacco: Never Vaping Use Vaping Use: Never used Substance Use Topics Alcohol use: Yes Comment: social, sips a couple times a week Drug use: No FAMILY HISTORY Problem Relation Age of Onset Coronary Artery Disease Mother PPM Diabetes Mother Hyperlipidemia Mother Hypertension Mother Cancer Mother multiple Heart Father afib, stroke Stroke Father hemorrhagic stroke No Known Problems Sister ALLERGIES: ALLERGIES Allergen Reactions Brynn Inhibitors Swelling Amino Acids Other: See Comments Ciprofloxacin Other: See Comments Lobster (Crustacean* Unknown MEDICATIONS: Magnesium 250 mg tabTake 250 mg by mouth.Disp: Rfl: hydrALAZINE (APRESOLINE) 50 mg tabletTAKE 1 TABLET THREE TIMES DAILYDisp: 270 tabletRfl: 3 aspirin, enteric coated (ECOTRIN LOW STRENGTH) 81 mg EC tabletTake 1 tablet by mouth once daily.Disp: 50 tabletRfl: 0 diazePAM (VALIUM) 5 mg tabletFor flyingDisp: Rfl: sildenafil (VIAGRA) 100 mg tabletTAKE HALF(1/2) OR ONE(1) TABLET BY MOUTH 30-60 MINUTES PRIOR TO SEXUAL ACTIVITYDisp: Rfl: glucosamine/chondr christiansen A sod (OSTEO BI-FLEX ORAL)Take by mouth once daily.Disp: Rfl: cholecalciferol (VITAMIN D3) 5,000 unit tabTake 5,000 Units by mouth once daily.Disp: Rfl: omeprazole (PRILOSEC) 20 mg capsuleTake 20 mg by mouth once daily. Disp: Rfl: hydrochlorothiazide 25 mg tabletTake 25 mg by mouth once daily.Disp: Rfl: zolpidem (AMBIEN) 10 mgTake 5 mg by mouth daily at bedtime. Disp: Rfl: atenolol 50 mg tabletTake 50 mg by mouth twice daily.Disp: Rfl: Verapamil SR 240 mg 24 hr capsuleTake 240 mg by mouth daily at bedtime.Disp: Rfl: sodium chloride 0.9 %, flush, (BD POSIFLUSH) syringeInject 2-10 mL intravenously as directed. For Echo procedureDisp: 10 mLRfl: 0 Carina Larkin RN I have seen and evaluated the patient and confirmed the findings of the Physician Cloth Shader/Nurse Practitioner or fellow/resident above, with the addition of appropriate modifications and corrections. I rizzo (more content not included)... [facility] 04-16-2023 History of Present illness Narrative Images from the original note were not included. [facility] Department of Cardiovascular Medicine SECTION OF CARDIAC PACING and ELECTROPHYSIOLOGY OUTPATIENT VISIT DATE April 16, 2023 OUTPATIENT VISIT TYPE ESTABLISHED PRIMARY CARE PHYSICIAN: Abril Yeboah [address] [place] [address] CHIEF COMPLAINT: AF HISTORY OF PRESENT ILLNESS/NURSING INTAKE HISTORY: Mr. Friend is a 63 year old male who presents today for follow-up visit s/p concomitant Watchman + PVI on 06/26/22. He history of recurrent, persistent symptomatic atrial fibrillation. Watchman indication was prior intracranial hemorrhage. He has a [id number] score of 3 for hypertension and prior stroke. He underwent Watchman + PVI 06/26/2022. He was last seen in office 10/04/2022 and JOSE showed minimal flow with no clear tract into the appendage. His Eliquis was stopped at his last visit. JOSE today showed EF=60%; Small infero-posterior leak remains (2.6mm x 2.4mm). He reports he may have had a couple of episodes of atrial fibrillation 3-4 months ago which lasted around 2 hours. He reports he went out of rhythm Saturday morning and believes he has been out since. He reports he felt more fatigued and had racing heartbeats. He endorses shortness of breath with exertion when he is out of rhythm. He denies chest pain, lightheadedness or syncope. He would like clearance for rotator cuff surgery. 1. How often on average, does your irregular heart rhythm (atrial fibrillation) occur? About once a year 2. How long on average, do the episodes of the irregular heart rhythm last? Several days or more 3. How often have you been bothered by this symptom in the past 4 weeks? Palpitations: a lot, Shortness of breath at rest: none, Shortness of breath during physical activity: very little, Exercise intolerance (fatigue during mild physical activity): a fair amount, Fatigue at rest: very little, and Lightheadedness/dizziness: none 4. Have you had an inpatient hospital admission within 30 days of your procedure? No 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) 01/26/2005 Right thalamic and right internal capsule hemorrhage on asa at the time., unsure of dose PAST SURGICAL HISTORY Procedure Laterality Date CARDIAC CATH 10/28/2003 CARDIOVERSION 05/31/2021 CARDIOVERSION 12/13/2021 OPEN REPAIR OF ROTATOR CUFF ACUTE 10/28/2003 Rotator cuff repair right x 2 PAST SURGICAL HISTORY OF 06/26/2022 Watchman and PVI SOCIAL HISTORY Social History Tobacco Use Smoking status: Never Smokeless tobacco: Never Vaping Use Vaping Use: Never used Substance Use Topics Alcohol use: Yes Comment: social, sips a couple times a week Drug use: No FAMILY HISTORY Problem Relation Age of Onset Coronary Artery Disease Mother PPM Diabetes Mother Hyperlipidemia Mother Hypertension Mother Cancer Mother multiple Heart Father afib, stroke Stroke Father hemorrhagic stroke No Known Problems Sister ALLERGIES: ALLERGIES Allergen Reactions Brynn Inhibitors Swelling Amino Acids Other: See Comments Ciprofloxacin Other: See Comments Lobster (Crustacean* Unknown MEDICATIONS: Magnesium 250 mg tab^Take 250 mg by mouth.^Disp: ^Rfl: hydrALAZINE (APRESOLINE) 50 mg tablet^TAKE 1 TABLET THREE TIMES DAILY^Disp: 270 tablet^Rfl: 3 aspirin, enteric coated (ECOTRIN LOW STRENGTH) 81 mg EC tablet^Take 1 tablet by mouth once daily.^Disp: 50 tablet^Rfl: 0 diazePAM (VALIUM) 5 mg tablet^For flying^Disp: ^Rfl: sildenafil (VIAGRA) 100 mg tablet^TAKE HALF(1/2) OR ONE(1) TABLET BY MOUTH 30-60 MINUTES PRIOR TO SEXUAL ACTIVITY^Disp: ^Rfl: glucosamine/chondr christiansen A sod (OSTEO BI-FLEX ORAL)^Take by mouth once daily.^Disp: ^Rfl: cholecalciferol (VITAMIN D3) 5,000 unit tab^Take 5,000 Units by mouth once daily.^Disp: ^Rfl: omeprazole (PRILOSEC) 20 mg capsule^Take 20 mg by mouth once daily. ^Disp: ^Rfl: hydrochlorothiazide 25 mg tablet^Take 25 mg by mouth once daily.^Disp: ^Rfl: zolpidem (AMBIEN) 10 mg^Take 5 mg by mouth daily at bedtime. ^Disp: ^Rfl: atenolol 50 mg tablet^Take 50 mg by mouth twice daily.^Disp: ^Rfl: Verapamil SR 240 mg 24 hr capsule^Take 240 mg by mouth daily at bedtime.^Disp: ^Rfl: sodium chloride 0.9 %, flush, (BD POSIFLUSH) syringe^Inject 2-10 mL intravenously as directed. For Echo procedure^Disp: 10 mL^Rfl: 0 Carina Larkin RN I have seen and evaluated the patient and confirmed the findings of the Physician Cloth Shader/Nurse Practitioner or fellow/resident above, with the addition of appropriate modifications and corrections. I have personally formulated an assessment and plan of management which was discussed with the patient and the clinical team. PHYSICAL EXAMINATION: BP 129/83 Pulse 79 Ht 168.9 cm (5' 6.5 ) Wt 97.5 kg (215 lb) BMI 34.18 kg/m General appearance: well appearing, in no acute distress, alert H+ENT: no JVP, no goiter apparent, no icterus Lungs: Lungs clear to auscultation, No wheezing or rhonchi Heart: iRiRR, no murmur, gallop, or rubs. No ectopy. Abdomen: Abdomen soft, non-tender. Extremities: no edema Neuro: Grossly intact. Pulses: present bilaterally Skin:no apparent skin break CARDIOVASCULAR MEDICINE TESTING: Today's EKG JOSE 04/16/2023 CONCLUSIONS: - Exam indication: Watchman Assessment - The left ventricle is normal in size. Left ventricular systolic function is normal. EF = 60 5% (visual est.) - The right ventricle is normal in size. Right ventricular systolic function is normal. - The visualized aorta is borderline dilated with a maximal dimension of 3.8 cm. - There is no patent foramen ovale as detected by Doppler and agitated saline contrast. - There are no significant valvular abnormalities. - Status post Watchman FLX 24 device. Small infero-posterior leak remains (2.6mm x 2.4mm). - Exam was compared with the prior CC echocardiographic exam performed on 10/04/22. Similar findings. Small ara-device leak better appreciated on today's study. Patient is in atrial fibrillation. Record recurrences on or prior to the follow-up date but after the date of the previous follow-up (or after ablation date if this is the first follow-up) Palpitations: Yes AFib: Yes Aflutter: No AT or SVT: No Is patient currently in atrial fibrillation? Yes Arrhythmia recurrence beyond the blanking period: Yes, date of recurrence: 03/2020 One year success off AAD Not applicable IMPRESSION: CHIEF COMPLAINT: AF HISTORY OF PRESENT ILLNESS/PLAN AND RECOMMENDATIONS:NURSING INTAKE HISTORY: Mr. Friend is a 63 year old male who presents today for follow-up visit s/p concomitant Watchman + PVI on 06/26/22. He history of recurrent, persistent symptomatic atrial fibrillation. Watchman indication was prior intracranial hemorrhage. He has a [id number] score of 3 for hypertension and prior stroke. He underwent Watchman + PVI 06/26/2022. He was last seen in office 10/04/2022 and JOSE showed minimal flow with no clear tract into the appendage. His Eliquis was stopped at his last visit. JOSE today showed EF=60%; Small infero-posterior leak remains (2.6mm x 2.4mm). He reports he may have had a couple of episodes of atrial fibrillation 3-4 months ago which lasted around 2 hours. He reports he went out of rhythm Saturday morning and believes he has been out since. He reports he felt more fatigued and had racing heartbeats. He endorses shortness of breath with exertion when he is out of rhythm. He denies chest pain, lightheadedness or syncope. He would like clearance for rotator cuff surgery. I reviewed the JOSE today again demonstrated is a small area of flow between the Watchman device and the wall of the proximal left atrial appendage without clear communication into the body of the appendage itself. He believes that he had a recurrence of atrial fibrillation starting Saturday. Unfortunately he had already eaten after his JOSE. He is scheduled to have rotator cuff surgery 05/08/2023. He prefers to forego cardioversion for now so as not to interfere with the rotator cuff surgery. Overall he feels generally well with some decreased endurance. Once he completes his shoulder surgery and is cleared to resume oral anticoagulation will call my office to arrange for DC cardioversion. Of note in the past he had intracranial hemorrhage while on aspirin. As such we may consider half dose apixaban 1 month after his DC cardioversion. He and his understand this concept very well. Odessa Terry MD I personally interviewed, confirmed and edited the above information as obtained by others. CONTACT INFORMATION: Odessa Terry MD documented in this encounter [facility] 04-15-2023 Miscellaneous Notes ECHO LAB TELEPHONE INSTRUCTIONS: Learning Response: Instructions provided to: Patient Procedure: JOSE Pre procedure education topics: Arrival time, NPO status, Medications, and Accompanied by a responsible adult Instructions/Restrictions Patient/Family Response Evaluation: Verbalizes understanding Follow Up Plan and Medication: As directed by physician Instruction/Supplemental Material Given: Appointment Information and Procedure/Test Specific Information: Transesphageal Echocardiogram-JOSE Instructed By Robyn Smiley RN. In Department of CARDIOLOGY. documented in this encounter [facility] 02-20-2023 Miscellaneous Notes Returned call to patient. No answer. Information re: his Watchman device sent to patient via [employer] message. Joy Greenwood RN documented in this encounter [facility] 02-20-2023 Miscellaneous Notes Scheduling just called for patient. Kyra Clements documented in this encounter [facility] 11-28-2022 Miscellaneous Notes Pharmacy electronically requests the following refill(s) Requested Prescriptions Pending Prescriptions Disp Refills hydrALAZINE (APRESOLINE) 50 mg tablet [Pharmacy Med Name: HYDRALAZINE HYDROCHLORIDE 50 MG Tablet] 270 tablet 3 Sig: TAKE 1 TABLET THREE TIMES DAILY Nelly Wilson documented in this encounter [facility] 10-04-2022 Note HNO ID: [id number] Author: Odessa Terry MD Service: ? Author Type: Physician Type: Progress Notes Filed: 10/05/2022 3:08 PM Note Text: [facility] Department of Cardiovascular Medicine SECTION OF CARDIAC PACING and ELECTROPHYSIOLOGY OUTPATIENT VISIT DATE October 04, 2022 OUTPATIENT VISIT TYPE ESTABLISHED PRIMARY CARE PHYSICIAN: Abril Yeboah MD [address] [place] [address] CHIEF COMPLAINT: AF Watchman in place HISTORY OF PRESENT ILLNESS/NURSING INTAKE: Mr. Friend is a 62 year old male who presents today for follow-up visit after concomitant Watchman + PVI on 06/26/22. He has a history of recurrent, persistent symptomatic atrial fibrillation. Watchman indication was prior intracranial hemorrhage. He has a [id number] score of 3 for hypertension and prior stroke. He continues on Eliquis currently. TTM transmissions have shown NSR. 1. How often on average, does your irregular heart rhythm (atrial fibrillation) occur? Not applicable, I have not had an irregular heart rhythm since my ablation 2. How long on average, do the episodes of the irregular heart rhythm last? Not applicable, I have not had an irregular heart rhythm since my ablation 3. How often have you been bothered by this symptom in the past 4 weeks? Palpitations: none, Shortness of breath at rest: none, Shortness of breath during physical activity: none, Exercise intolerance (fatigue during mild physical activity): none, Fatigue at rest: a little, Lightheadedness/dizziness: very little, and Chest pain or pressure: very little 4. Have you had an inpatient hospital admission within 30 days of your procedure? No Joy Greenwood RN He denies chest pain, shortness of breath, orthopnea, cough, edema, palpitations, PND, lightheadedness or syncope. EKG today: 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) 01/26/2005 Right thalamic and right internal capsule hemorrhage on asa at the time., unsure of dose PAST SURGICAL HISTORY Procedure Laterality Date CARDIAC CATH 10/28/2003 CARDIOVERSION 05/31/2021 CARDIOVERSION 12/13/2021 OPEN REPAIR OF ROTATOR CUFF ACUTE 10/28/2003 Rotator cuff repair right x 2 SOCIAL HISTORY Social History Tobacco Use Smoking status: Never Smokeless tobacco: Never Vaping Use Vaping Use: Never used Substance Use Topics Alcohol use: Yes Comment: social, rarely Drug use: No FAMILY HISTORY Problem Relation Age of Onset Coronary Artery Disease Mother PPM Diabetes Mother Hyperlipidemia Mother Hypertension Mother Cancer Mother multiple Heart Father afib, stroke Stroke Father hemorrhagic stroke No Known Problems Sister ALLERGIES Allergen Reactions Brynn Inhibitors Swelling Amino Acids Other: See Comments Ciprofloxacin Other: See Comments Lobster (Crustacean* Unknown MEDICATIONS: aspirin, enteric coated (ECOTRIN LOW STRENGTH) 81 mg EC tabletTake 1 tablet by mouth once daily.Disp: 50 tabletRfl: 0 diazePAM (VALIUM) 5 mg tabletFor flyingDisp: Rfl: sildenafil (VIAGRA) 100 mg tabletTAKE HALF(1/2) OR ONE(1) TABLET BY MOUTH 30-60 MINUTES PRIOR TO SEXUAL ACTIVITYDisp: Rfl: glucosamine/chondr christiansen A sod (OSTEO BI-FLEX ORAL)Take by mouth once daily.Disp: Rfl: hydrALAZINE (APRESOLINE) 50 mg tabletTake 1 tablet by mouth three times daily.Disp: 270 tabletRfl: 3 ELIQUIS 5 mg tab(s)TAKE 1 TABLET BY MOUTH TWICE A DAYDisp: 60 tabletRfl: 11 cholecalciferol (VITAMIN D-3) 5,000 unit tabTake 5,000 Units by mouth once daily.Disp: Rfl: Magnesium Oxide 250 mg magnesium tabTake 1 tablet by mouth.Disp: Rfl: omeprazole (PRILOSEC) 20 mg capsuleTake 20 mg by mouth once daily. Disp: Rfl: hydrochlorothiazide 25 mg tabletTake 25 mg by mouth once daily.Disp: Rfl: zolpidem (AMBIEN) 10 mg tabTake 5 mg by mouth daily at bedtime. Disp: Rfl: atenolol 50 mg tabletTake 50 mg by mouth twice daily.Disp: Rfl: Verapamil SR 240 mg 24 hr capsuleTake 240 mg by mouth daily at bedtime.Disp: Rfl: Joy Greenwood, SHANAN, RN I personally interviewed, confirmed and edited the above information as obtained by others. PHYSICAL EXAMINATION: BP 141/85 Pulse (!) 54 Ht 168.9 cm (5' 6.5 ) Wt 95.7 kg (211 lb) BMI 33.55 kg/m? General appearance: well appearing, in no acute distress, alert H+ENT: no JVP, no goiter apparent, no icterus Lungs: Lungs clear to auscultation, No wheezing or rhonchi Heart: RRR, no murmur, gallop, or rubs. No ectopy. Abdomen: Abdomen soft, non-tender. Extremities: no edema Neuro: Grossly intact. Pulses: present bilaterally Skin:no apparent skin break HISTORY OF PRESENT ILLNESS / IMPRESSION, PL (more content not included)... [facility] 10-04-2022 History of Present illness Narrative Images from the original note were not included. [facility] Department of Cardiovascular Medicine SECTION OF CARDIAC PACING and ELECTROPHYSIOLOGY OUTPATIENT VISIT DATE October 04, 2022 OUTPATIENT VISIT TYPE ESTABLISHED PRIMARY CARE PHYSICIAN: Abril Yeboah MD [address] [place] [address] CHIEF COMPLAINT: AF Watchman in place HISTORY OF PRESENT ILLNESS/NURSING INTAKE: Mr. Friend is a 62 year old male who presents today for follow-up visit after concomitant Watchman + PVI on 06/26/22. He has a history of recurrent, persistent symptomatic atrial fibrillation. Watchman indication was prior intracranial hemorrhage. He has a [id number]-ZLLo score of 3 for hypertension and prior stroke. He continues on Eliquis currently. TTM transmissions have shown NSR. 1. How often on average, does your irregular heart rhythm (atrial fibrillation) occur? Not applicable, I have not had an irregular heart rhythm since my ablation 2. How long on average, do the episodes of the irregular heart rhythm last? Not applicable, I have not had an irregular heart rhythm since my ablation 3. How often have you been bothered by this symptom in the past 4 weeks? Palpitations: none, Shortness of breath at rest: none, Shortness of breath during physical activity: none, Exercise intolerance (fatigue during mild physical activity): none, Fatigue at rest: a little, Lightheadedness/dizziness: very little, and Chest pain or pressure: very little 4. Have you had an inpatient hospital admission within 30 days of your procedure? No Joy Greenwood RN He denies chest pain, shortness of breath, orthopnea, cough, edema, palpitations, PND, lightheadedness or syncope. EKG today: 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) 01/26/2005 Right thalamic and right internal capsule hemorrhage on asa at the time., unsure of dose PAST SURGICAL HISTORY Procedure Laterality Date CARDIAC CATH 10/28/2003 CARDIOVERSION 05/31/2021 CARDIOVERSION 12/13/2021 OPEN REPAIR OF ROTATOR CUFF ACUTE 10/28/2003 Rotator cuff repair right x 2 SOCIAL HISTORY Social History Tobacco Use Smoking status: Never Smokeless tobacco: Never Vaping Use Vaping Use: Never used Substance Use Topics Alcohol use: Yes Comment: social, rarely Drug use: No FAMILY HISTORY Problem Relation Age of Onset Coronary Artery Disease Mother PPM Diabetes Mother Hyperlipidemia Mother Hypertension Mother Cancer Mother multiple Heart Father afib, stroke Stroke Father hemorrhagic stroke No Known Problems Sister ALLERGIES Allergen Reactions Brynn Inhibitors Swelling Amino Acids Other: See Comments Ciprofloxacin Other: See Comments Lobster (Crustacean* Unknown MEDICATIONS: aspirin, enteric coated (ECOTRIN LOW STRENGTH) 81 mg EC tablet^Take 1 tablet by mouth once daily.^Disp: 50 tablet^Rfl: 0 diazePAM (VALIUM) 5 mg tablet^For flying^Disp: ^Rfl: sildenafil (VIAGRA) 100 mg tablet^TAKE HALF(1/2) OR ONE(1) TABLET BY MOUTH 30-60 MINUTES PRIOR TO SEXUAL ACTIVITY^Disp: ^Rfl: glucosamine/chondr christiansen A sod (OSTEO BI-FLEX ORAL)^Take by mouth once daily.^Disp: ^Rfl: hydrALAZINE (APRESOLINE) 50 mg tablet^Take 1 tablet by mouth three times daily.^Disp: 270 tablet^Rfl: 3 ELIQUIS 5 mg tab(s)^TAKE 1 TABLET BY MOUTH TWICE A DAY^Disp: 60 tablet^Rfl: 11 cholecalciferol (VITAMIN D-3) 5,000 unit tab^Take 5,000 Units by mouth once daily.^Disp: ^Rfl: Magnesium Oxide 250 mg magnesium tab^Take 1 tablet by mouth.^Disp: ^Rfl: omeprazole (PRILOSEC) 20 mg capsule^Take 20 mg by mouth once daily. ^Disp: ^Rfl: hydrochlorothiazide 25 mg tablet^Take 25 mg by mouth once daily.^Disp: ^Rfl: zolpidem (AMBIEN) 10 mg tab^Take 5 mg by mouth daily at bedtime. ^Disp: ^Rfl: atenolol 50 mg tablet^Take 50 mg by mouth twice daily.^Disp: ^Rfl: Verapamil SR 240 mg 24 hr capsule^Take 240 mg by mouth daily at bedtime.^Disp: ^Rfl: Joy Greenwood, SHANAN, RN I personally interviewed, confirmed and edited the above information as obtained by others. PHYSICAL EXAMINATION: BP 141/85 Pulse (!) 54 Ht 168.9 cm (5' 6.5 ) Wt 95.7 kg (211 lb) BMI 33.55 kg/m General appearance: well appearing, in no acute distress, alert H+ENT: no JVP, no goiter apparent, no icterus Lungs: Lungs clear to auscultation, No wheezing or rhonchi Heart: RRR, no murmur, gallop, or rubs. No ectopy. Abdomen: Abdomen soft, non-tender. Extremities: no edema Neuro: Grossly intact. Pulses: present bilaterally Skin:no apparent skin break HISTORY OF PRESENT ILLNESS / IMPRESSION, PLAN AND RECOMMENDATIONS: CHIEF COMPLAINT: AF Watchman in place HISTORY OF PRESENT ILLNESS/NURSING INTAKE: Mr. Friend is a 62 year old male who presents today for follow-up visit after concomitant Watchman + PVI on 06/26/22. He has a history of recurrent, persistent symptomatic atrial fibrillation. Watchman indication was prior intracranial hemorrhage. He has a [id number] score of 3 for hypertension and prior stroke. He continues on Eliquis currently. TTM transmissions have shown NSR. Doing very well with no recurrence of AF. I reviewed the JOSE with Dr. Sheth minimal flow with no clear tract into the appendage. Stop apixaban . Continue aspirin. Followup in 6 months with JOSE. MD Odessa Burr MD documented in this encounter [facility] 10-04-2022 Note HNO ID: [id number] Author: Chelly Yap RN Service: ? Author Type: Registered Nurse Type: Progress Notes Filed: 10/25/2022 8:45 AM Note Text: AMBULATORY PATIENT EDUCATION TOPIC: SURVIVAL SKILLS: JOSE READINESS TO LEARN COGNITIVE ABILITY: Alert and oriented MOTIVATION TO LEARN: Interested FAMILY SUPPORT: None - Unavailable/disinterested INSTRUCTION PROVIDED TO: Patient PATIENT LEARNS BEST BY: Individual Instruction FACTORS AFFECTING LEARNING: None PHYSICAL LIMITATIONS AFFECTING LEARNING: None LEARNING RESPONSE DIAGNOSIS: watchman 45 day followup METHOD OF INSTRUCTION: Individual instruction PATIENT / FAMILY RESPONSE: Verbalizes understanding of: POST-PROCEDURE INSTRUCTIONS-Correct actions to take to reduce post procedure complications PRE-PROCEDURE INSTRUCTIONS-Correct action to take to follow pre-procedure instructions FOLLOW-UP PLAN: Complete - No need for follow-up SUPPLEMENTAL MATERIAL: Post JOSE instructions given Post sedation instructions given REFERRAL (RECOMMENDATION): None Electronically Signed By Chelly Yap RN In Department: CARDIOLOGY [facility] 10-04-2022 History of Present illness Narrative AMBULATORY PATIENT EDUCATION TOPIC: SURVIVAL SKILLS: JOSE READINESS TO LEARN COGNITIVE ABILITY: Alert and oriented MOTIVATION TO LEARN: Interested FAMILY SUPPORT: None - Unavailable/disinterested INSTRUCTION PROVIDED TO: Patient PATIENT LEARNS BEST BY: Individual Instruction FACTORS AFFECTING LEARNING: None PHYSICAL LIMITATIONS AFFECTING LEARNING: None LEARNING RESPONSE DIAGNOSIS: watchman 45 day followup METHOD OF INSTRUCTION: Individual instruction PATIENT / FAMILY RESPONSE: Verbalizes understanding of: POST-PROCEDURE INSTRUCTIONS-Correct actions to take to reduce post procedure complications PRE-PROCEDURE INSTRUCTIONS-Correct action to take to follow pre-procedure instructions FOLLOW-UP PLAN: Complete - No need for follow-up SUPPLEMENTAL MATERIAL: Post JOSE instructions given Post sedation instructions given REFERRAL (RECOMMENDATION): None Electronically Signed By Chelly Yap RN In Department: CARDIOLOGY documented in this encounter [facility] 10-03-2022 Miscellaneous Notes ECHO LAB TELEPHONE INSTRUCTIONS: Learning Response: Instructions provided to: Patient Procedure: JOSE Pre procedure education topics: Arrival time, NPO status, Medications, Travel, and Accompanied by a responsible adult Instructions/Restrictions Patient/Family Response Evaluation: Verbalizes understanding Follow Up Plan and Medication: As directed by physician Instruction/Supplemental Material Given: Appointment Information and Procedure/Test Specific Information: Transesphageal Echocardiogram-JOSE Instructed By Leann Lewis RN. In Department of CARDIOLOGY. documented in this encounter [facility] 06-26-2022 Miscellaneous Notes We are calling to check on you since you left the hospital yesterday. Are you having any medical concerns we can help you with today? none Call Outcome All Clear Closing comments given. Pt states they have 24 hr RN resource phone number and website in discharge paperwork. documented in this encounter [facility] 06-26-2022 Note HNO ID: [id number] Author: Odessa Terry MD Service: ? Author Type: Physician Type: Progress Notes Filed: 06/26/2022 9:36 AM Note Text: Spoke with Mr. Friend. Doing very well with mild groin discomfort but no bleeding or hematoma. Odessa Terry MD [facility] 06-26-2022 History of Present illness Narrative Spoke with Mr. Friend. Doing very well with mild groin discomfort but no bleeding or hematoma. Odessa Terry MD documented in this encounter [facility] 06-25-2022 Note HNO ID: [id number] Author: Jenae Viera Service: ? Author Type: ? Type: Progress Notes Filed: 06/25/2022 6:25 PM Note Text: TRANSMITTER INSTRUCTIONS Patient Name: Milton Friend [facility] Number: [id number] Fresh battery inserted in monitor Baseline recording not completed Patient instructed 1.) Scheduled and Symptomatic recording instructions 2.) Usage of event button and/or transmission instructions 3.) Maintenance and care of monitor 4.) Landline availability 5.) Return unit at the end of prescribed order 6.) Call with problems [phone] OR [phone] Patient expresses good verbal understanding of instructions Jenae Viera [facility] 06-25-2022 History of Present illness Narrative TRANSMITTER INSTRUCTIONS Patient Name: Milton Friend [facility] Number: [id number] Fresh battery inserted in monitor Baseline recording not completed Patient instructed 1.) Scheduled and Symptomatic recording instructions 2.) Usage of event button and/or transmission instructions 3.) Maintenance and care of monitor 4.) Landline availability 5.) Return unit at the end of prescribed order 6.) Call with problems [phone] OR [phone] Patient expresses good verbal understanding of instructions Jenae Viera documented in this encounter [facility] 06-25-2022 Note HNO ID: [id number] Author: Blake Dee MD Service: Cardiovascular Medicine Author Type: Fellow Type: Plan of Care Filed: 06/25/2022 12:07 PM Note Text: BRIEF EP PROCEDURE NOTE: Procedure: Afib ablation and Watchman implantation Outcome: Succesful Access: RFV x 2 and LVF x 2 - hemostasis with vascade Complications: None Plan: - Bedrest for 4 hours - Aspirin 324mg and Apixaban 5mg to be given in PACU -Start daily ASA 81mg. Continue rest of medications Full report to follow in [facility] (Under Chart Review -> Cardiac ) Blake Dee MD Electrophysiology Fellow PGY-VII P: [phone] June 25, 2022 12:06 PM [facility] 06-25-2022 Note HNO ID: [id number] Author: Kennedy Martinez APRN.HUMAN RESOURCES COORDINATOR Service: ? Author Type: Nurse Repairer And Checker Type: Anesthesia Procedure Notes Filed: 06/25/2022 8:05 AM Note Text: ANESTHESIOLOGY PROCEDURE NOTE PIV General Information Procedure Start Time/Medication Administration: 06/25/2022 8:04 AM Patient Location: OR Staffing HUMAN RESOURCES COORDINATOR: Emily Nieto APRN.HUMAN RESOURCES COORDINATOR Performed by: TARA Preparation Sterility Preparation: hand hygiene performed prior to procedure, surgical cap used, mask used, skin prep agent completely dried prior to procedure Site Prep: alcohol Procedure Details Indication: need for IV access Needle Size/Type: 16 gauge angiocath Orientation: Right Location: Hand SIGNATURE: Kennedy Martinez APRN.CRNA PATIENT NAME: Milton Friend DATE: June 25, 2022 TIME: 8:04 AM CSN: [id number] [facility] 06-25-2022 Note HNO ID: [id number] Author: Kennedy Martinez APRN.HUMAN RESOURCES COORDINATOR Service: ? 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 Staffing HUMAN RESOURCES COORDINATOR: Kennedy Martinez APRN.HUMAN RESOURCES COORDINATOR Performed by: TARA Indications and Patient Condition Indications for airway management: anesthesia Preoxygenated: yes anesthesia circuit Method: asleep Difficult Mask: No Airway Accessory: oral airway Final Airway Details Final airway type: endotracheal airway Final Endotracheal Airway: ETT Cuffed: yes Successful intubation technique: video laryngoscopy Devices used: Just [employer] Endotracheal tube insertion site: oral Blade size: #4 ETT size (mm): 7.0 Measurement (cm): 22 Placement verified by: capnometry Cormack-Lehane Classification: grade I - full view of glottis Number of attempts at approach: 1 Failed airway: no Unrecognized esophageal intubation: no Airway not difficult SIGNATURE: Kennedy Martinez APRN.CRNA PATIENT NAME: Milton Friend DATE: June 25, 2022 TIME: 8:03 AM CSN: [id number] [facility] 06-22-2022 Note HNO ID: [id number] Author: Pedro Aranda MD Service: ? Author Type: Physician Type: Progress Notes Filed: 06/22/2022 2:25 PM Note Text: [facility] [place] [facility] Department of Cardiovascular Medicine SECTION OF CLINICAL CARDIOLOGY OUTPATIENT VISIT DATE June 22, 2022 OUTPATIENT VISIT TYPE CONSULTATION PRIMARY CARE PHYSICIAN: Abril Yeboah MD [address] [place] [address] REFERRING PHYSICIAN Odessa Terry [address] [facility] [address] CHIEF COMPLAINT: No chief complaint on file. HISTORY OF PRESENT ILLNESS: Cardiac consultation at the request of Dr. Odessa Terry.A copy of this consultation note will be provided to the requesting physician by way of shared Medical record or letter to requesting physician via [place] mail. Mr. Friend is a 62 year old male who is seen today for preoperative evaluation prior to A. fib ablation and watchman the device placement. The patient had experienced an episode of atrial fibrillation in 2013 with no recurrence since then till April 2021 when he was experiencing profound symptoms of fatigue. He was placed on Eliquis and cardioverted on 05/31/2021. He was then referred to Dr. 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 His stroke was attributed to hypertension and intracranial angiogram at the time revealed no abnormalities. He was initiated on anticoagulation therapy and referred to Dr. Terry (09/2021). Shortly after he experienced recurrent episodes of atrial fibrillation with cardioversion. He was then reevaluated and the plan is currently to proceed with A. fib ablation due to significant symptoms of fatigue and watchman device placement given increased risk of bleeding. He denies chest pain, shortness of breath, orthopnea, cough, edema, palpitations, PND, lightheadedness or syncope. NURSING INTAKE: Mr. Friend is a 62 yo male presenting for evaluation for Watchman procedure. He denies any cardiac symptoms at this time. 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) 01/26/2005 Right thalamic and right internal capsule hemorrhage on asa at the time., unsure of dose PAST SURGICAL HISTORY Procedure Laterality Date CARDIAC CATH 10/28/2003 CARDIOVERSION 05/31/2021 CARDIOVERSION 12/13/2021 OPEN REPAIR OF ROTATOR CUFF ACUTE 10/28/2003 Rotator cuff repair right x 2 SOCIAL HISTORY Social History Tobacco Use Smoking status: Never Smokeless tobacco: Never Vaping Use Vaping Use: Never used Substance Use Topics Alcohol use: Yes Comment: social, rarely Drug use: No FAMILY HISTORY Problem Relation Age of Onset Coronary Artery Disease Mother PPM Diabetes Mother Hyperlipidemia Mother Hypertension Mother Cancer Mother multiple Heart Father afib, stroke Stroke Father hemorrhagic stroke No Known Problems Sister ALLERGIES: ALLERGIES Allergen Reactions Brynn Inhibitors Swelling Amino Acids Other: See Comments Ciprofloxacin Other: See Comments Lobster (Crustacean* Unknown MEDICATIONS: sodium chloride 0.9 %, flush, (BD POSIFLUSH) syringe Inject 2-10 mL intravenously as directed. For Echo procedure diazePAM (VALIUM) 5 mg tablet For flying sildenafil (VIAGRA) 100 mg tablet TAKE HALF(1/2) OR ONE(1) TABLET BY MOUTH 30-60 MINUTES PRIOR TO SEXUAL ACTIVITY glucosamine/chondr christiansen A sod (OSTEO BI-FLEX ORAL) Take by mouth once daily. hydrALAZINE (APRESOLINE) 50 mg tablet Take 1 tablet by mouth three times daily. ELIQUIS 5 mg tab(s) TAKE 1 TABLET BY MOUTH TWICE A DAY cholecalciferol (VITAMIN D-3) 5,000 unit tab Take 5,000 Units by mouth once daily. Magnesium Oxide 250 mg magnesium tab Take 1 tablet by mouth. omeprazole (PRILOSEC) 20 mg capsule Take 20 mg by mouth once daily. hydrochlorothiazide 25 mg tablet Take 25 mg by mouth once daily. zolpidem (AMBIEN) 10 mg tab Take 5 mg by mouth daily at bedtime. atenolol 50 mg tablet Take 50 mg by mouth twice daily. Verapamil SR 240 mg 24 hr capsule Take 240 mg by mouth daily at bedtime. REVIEW OF SYSTEMS: Positives in bold GENERAL: Negative for: Weight loss or gain, Fever or Chills, Weakness and Sleep difficulties. HEENT: Negative for: Headache, Impaired Vision, Glasses, Hearing Impairment, Ringing in Ears, Nosebleeds, Poor dental care, Bleeding Gums, Dentures NECK: Negative for: Swelling, Pain, Stiffness RESPIRATORY: Negative for: Cough, Blood in Sputum, Shortness of breath, Wheezing, Apnea GASTROINTESTINAL: Negative for: Trouble swallowing, Heartburn, Change in bowel habits, Blood in stool, Dark black stools M (more content not included)... [facility] 06-22-2022 Note HNO ID: [id number] Author: Dulce Maria Isabel RN Service: ? Author Type: Registered Nurse Type: Progress Notes Filed: 06/22/2022 12:26 PM Note Text: THE FOLLOWING WAS EVALUATED Motivation To Learn: Interested Family/Significant Other Support: Unable to assess - Family not present Cognitive Ability: Alert and oriented Patient Learns Best By: Verbal Instruction The Following Influencing Factors Were Barriers To This Education Session: None The Following Physical Limitations Were Barriers To This Education Session: None Instruction Provided To: Patient Procedure: Pulmonary Vein Ablation/Isolation TransEsophageal Echo (JOSE) Watchman Pre-procedure information reviewed: Patient ID verified Procedure verified Physician verified Explanation of procedure Sedation level during procedure medication instructions from EP lab request: Hold all meds the morning of the procedure. Patient denies missing any doses of Eliquis in the past 3 weeks. Travel instructions/restrictions Scheduling information Possible same day discharge versus overnight hospital stay Check out time Family waiting area Physician contact with family after procedure Post Procedure Expectations reviewed: Inpatient hospital stay Post procedure antiarrhythmics and anticoagulation will be discussed with Physician, nurse practitioner or Physician certified surgical tech/first assistant upon discharge Instructions for transmitting EKG to Monitoring Center 3 month follow up instructions Contact number for information and questions Patient Evaluation: Verbalizes understanding Follow Up Plan: Follow up as directed by MD. Supplemental Material Given: Written Material Patient education regarding radiation exposure. Instructed By Dulce Maria Isabel RN. In Department of CARDIOLOGY. [facility] 06-22-2022 Instructions Pedro Aranda MD - 06/22/2022 2:07 PM EDT Proceed with afb ablation and watchman documented in this encounter [facility] 06-22-2022 Note Education (EPSMN) MILTON FRIEND ([id number]) 1960 M Date Time Provider Department 06/22/22 ODESSA TERRY EPSMN Reason for Visit: Patient Education [91] Cmt: EPS-PVI + Watchman During your visit today, we recorded the following information about you: Allergies As of Date: 06/22/2022 Noted Allergy Reaction BRYNN INHIBITORS 10/05/2021 7 - Swelling AMINO ACIDS 01/05/2022 14 - Other: See Comments CIPROFLOXACIN 01/05/2022 14 - Other: See Comments LOBSTER (CRUSTACEANS) 11/23/2013 16 - Unknown Date Reviewed: 04/19/2022 Reviewed by: Krystle Galarza RN - Fully Assessed Prescriptions as of 06/22/2022 - sodium chloride 0.9 %, flush, (BD POSIFLUSH) syringe Inject 2-10 mL intravenously as directed. For Echo procedure - diazePAM (VALIUM) 5 mg tablet For flying - sildenafil (VIAGRA) 100 mg tablet TAKE HALF(1/2) OR ONE(1) TABLET BY MOUTH 30-60 MINUTES PRIOR TO SEXUAL ACTIVITY - glucosamine/chondr christiansen A sod (OSTEO BI-FLEX ORAL) Take by mouth once daily. - hydrALAZINE (APRESOLINE) 50 mg tablet Take 1 tablet by mouth three times daily. - ELIQUIS 5 mg tab(s) TAKE 1 TABLET BY MOUTH TWICE A DAY - cholecalciferol (VITAMIN D-3) 5,000 unit tab Take 5,000 Units by mouth once daily. - Magnesium Oxide 250 mg magnesium tab Take 1 tablet by mouth. - omeprazole (PRILOSEC) 20 mg capsule Take 20 mg by mouth once daily. - hydrochlorothiazide 25 mg tablet Take 25 mg by mouth once daily. - zolpidem (AMBIEN) 10 mg tab Take 5 mg by mouth daily at bedtime. - atenolol 50 mg tablet Take 50 mg by mouth twice daily. - Verapamil SR 240 mg 24 hr capsule Take 240 mg by mouth daily at bedtime. Encounter Status:Closed by DULCE MARIA CARABALLO on 06/22/22 [facility] 06-22-2022 History of Present illness Narrative Images from the original note were not included. [facility] [place] [facility] Department of Cardiovascular Medicine SECTION OF CLINICAL CARDIOLOGY OUTPATIENT VISIT DATE June 22, 2022 OUTPATIENT VISIT TYPE CONSULTATION PRIMARY CARE PHYSICIAN: Abril Yeboah MD [address] [place] [address] REFERRING PHYSICIAN Odessa Terry [address] [facility] [address] CHIEF COMPLAINT: No chief complaint on file. HISTORY OF PRESENT ILLNESS: Cardiac consultation at the request of Dr. Odessa Terry.A copy of this consultation note will be provided to the requesting physician by way of shared Medical record or letter to requesting physician via [place] mail. Mr. Friend is a 62 year old male who is seen today for preoperative evaluation prior to A. fib ablation and watchman the device placement. The patient had experienced an episode of atrial fibrillation in 2013 with no recurrence since then till April 2021 when he was experiencing profound symptoms of fatigue. He was placed on Eliquis and cardioverted on 05/31/2021. He was then referred to Dr. 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 His stroke was attributed to hypertension and intracranial angiogram at the time revealed no abnormalities. He was initiated on anticoagulation therapy and referred to Dr. Terry (09/2021). Shortly after he experienced recurrent episodes of atrial fibrillation with cardioversion. He was then reevaluated and the plan is currently to proceed with A. fib ablation due to significant symptoms of fatigue and watchman device placement given increased risk of bleeding. He denies chest pain, shortness of breath, orthopnea, cough, edema, palpitations, PND, lightheadedness or syncope. NURSING INTAKE: Mr. Friend is a 62 yo male presenting for evaluation for Watchman procedure. He denies any cardiac symptoms at this time. 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) 01/26/2005 Right thalamic and right internal capsule hemorrhage on asa at the time., unsure of dose PAST SURGICAL HISTORY Procedure Laterality Date CARDIAC CATH 10/28/2003 CARDIOVERSION 05/31/2021 CARDIOVERSION 12/13/2021 OPEN REPAIR OF ROTATOR CUFF ACUTE 10/28/2003 Rotator cuff repair right x 2 SOCIAL HISTORY Social History Tobacco Use Smoking status: Never Smokeless tobacco: Never Vaping Use Vaping Use: Never used Substance Use Topics Alcohol use: Yes Comment: social, rarely Drug use: No FAMILY HISTORY Problem Relation Age of Onset Coronary Artery Disease Mother PPM Diabetes Mother Hyperlipidemia Mother Hypertension Mother Cancer Mother multiple Heart Father afib, stroke Stroke Father hemorrhagic stroke No Known Problems Sister ALLERGIES: ALLERGIES Allergen Reactions Brynn Inhibitors Swelling Amino Acids Other: See Comments Ciprofloxacin Other: See Comments Lobster (Crustacean* Unknown MEDICATIONS: sodium chloride 0.9 %, flush, (BD POSIFLUSH) syringe Inject 2-10 mL intravenously as directed. For Echo procedure diazePAM (VALIUM) 5 mg tablet For flying sildenafil (VIAGRA) 100 mg tablet TAKE HALF(1/2) OR ONE(1) TABLET BY MOUTH 30-60 MINUTES PRIOR TO SEXUAL ACTIVITY glucosamine/chondr christiansen A sod (OSTEO BI-FLEX ORAL) Take by mouth once daily. hydrALAZINE (APRESOLINE) 50 mg tablet Take 1 tablet by mouth three times daily. ELIQUIS 5 mg tab(s) TAKE 1 TABLET BY MOUTH TWICE A DAY cholecalciferol (VITAMIN D-3) 5,000 unit tab Take 5,000 Units by mouth once daily. Magnesium Oxide 250 mg magnesium tab Take 1 tablet by mouth. omeprazole (PRILOSEC) 20 mg capsule Take 20 mg by mouth once daily. hydrochlorothiazide 25 mg tablet Take 25 mg by mouth once daily. zolpidem (AMBIEN) 10 mg tab Take 5 mg by mouth daily at bedtime. atenolol 50 mg tablet Take 50 mg by mouth twice daily. Verapamil SR 240 mg 24 hr capsule Take 240 mg by mouth daily at bedtime. REVIEW OF SYSTEMS: Positives in bold GENERAL: Negative for: Weight loss or gain, Fever or Chills, Weakness and Sleep difficulties. HEENT: Negative for: Headache, Impaired Vision, Glasses, Hearing Impairment, Ringing in Ears, Nosebleeds, Poor dental care, Bleeding Gums, Dentures NECK: Negative for: Swelling, Pain, Stiffness RESPIRATORY: Negative for: Cough, Blood in Sputum, Shortness of breath, Wheezing, Apnea GASTROINTESTINAL: Negative for: Trouble swallowing, Heartburn, Change in bowel habits, Blood in stool, Dark black stools MUSCULOSKELETAL: Negative for: Muscle or joint pain, Stiffness , Joint swelling NEUROLOGIC/PSYCHIATRIC: Negative for: Weakness, Paralysis, Numbness, Tingling, Tremor, Nervousness, Depressed mood, Memory loss SKIN: Negative for: Rashes, Itching HEMATOLOGICAL/LYMPHATIC: Negative for: Easy bruising , Easy bleeding ENDOCRINE: Negative for: Heat or cold intolerance, Excessive sweating, Frequent urination, Frequent thirst PHYSICAL EXAMINATION: BP 155/87 (BP Site: Right Arm) Pulse 68 Resp 16 Wt 94.8 kg (209 lb) SpO2 96% BMI 33.73 kg/m General: Well appearing, in no acute distress. Skin: No clubbing, no cyanosis. Eyes: Extra ocular movements intact Neck: No jugular venous distention, no carotid bruits, carotids have a normal upstroke, no palpable thyromegaly. Lungs: Clear to auscultation bilaterally, no wheezing or rhonchi. Heart: Regular rhythm, PMI not displaced, S1, S2 normal, no S3, no S4, no heaves, no rub and no murmur. Abdomen: Soft, nontender, bowel sounds normal, no palpable organomegaly, no bruits. Extremities: No peripheral edema . Neuro: Oriented to person, place and time, alert, cooperative, gait coordinated. CARDIOVASCULAR MEDICINE TESTING: Electrocardiogram: Last EKG Result Conclusion ECG COMPLETE Collected: 06/22/2022 11:55 AM (Preliminary result) Impression: NORMAL SINUS RHYTHM . BORDERLINE ECG JOSE - 05/31/2021 CONCLUSIONS: - Exam indication: Sustained atrial fibrillation - Left ventricular systolic function is normal. EF = 55 5% (visual est.) - The right ventricle is normal in size. Right ventricular systolic function is normal. - The left atrial cavity is dilated. -No thrombus with left atrium well visualized -Saline bubble study with no shunt -Will proceed with cardioversion for atrial fib - The patient has not had a prior CC echocardiographic exam for comparison. I have personally reviewed the Electrocardiogram and echo. IMPRESSION: Mr. Friend is a 62 year old male with history of hypertension, GERD HPL and a massive hemorrhagic stroke (2004) with residual left-sided weakness and speech impairment, obstructive sleep apnea with paroxysmal atrial fibrillation who presents for preoperative evaluation prior to watchman device placement and A. fib ablation 1. Paroxysmal atrial fibrillation [id number] 2 score of 3 (history of hypertension, history of stroke) and has bled score of 3 2. History of massive stroke 3. Hypertension PLAN AND RECOMMENDATIONS: Given patient's symptoms it is reasonable to proceed with A. fib ablation and I agree that given his history of massive stroke with residual impact it is reasonable to proceed with a watchman device particularly in the setting of an increased has bled score due to the former. I noted that his blood pressure was elevated today, however he mentioned that he has not taken his midday medication. Patient is aware of the importance of blood pressure control. I personally interviewed, confirmed and edited the above information as obtained by others. CONTACT INFORMATION: Pedro Aranda MD Section of Clinical Cardiology Ethan Rodgers Department of Cardiovascular Medicine Heart [facility] [place] [facility] Desk [address] [place] [address] Office Office Appointments: [phone] documented in this encounter [facility] 06-22-2022 History of Present illness Narrative THE FOLLOWING WAS EVALUATED Motivation To Learn: Interested Family/Significant Other Support: Unable to assess - Family not present Cognitive Ability: Alert and oriented Patient Learns Best By: Verbal Instruction The Following Influencing Factors Were Barriers To This Education Session: None The Following Physical Limitations Were Barriers To This Education Session: None Instruction Provided To: Patient Procedure: Pulmonary Vein Ablation/Isolation TransEsophageal Echo (JOSE) Watchman Pre-procedure information reviewed: Patient ID verified Procedure verified Physician verified Explanation of procedure Sedation level during procedure MD medication instructions from EP lab request: Hold all meds the morning of the procedure. Patient denies missing any doses of Eliquis in the past 3 weeks. Travel instructions/restrictions Scheduling information Possible same day discharge versus overnight hospital stay Check out time Family waiting area Physician contact with family after procedure Post Procedure Expectations reviewed: Inpatient hospital stay Post procedure antiarrhythmics and anticoagulation will be discussed with Physician, nurse practitioner or Physician certified surgical tech/first assistant upon discharge Instructions for transmitting EKG to Monitoring Center 3 month follow up instructions Contact number for information and questions Patient Evaluation: Verbalizes understanding Follow Up Plan: Follow up as directed by MD. Supplemental Material Given: Written Material Patient education regarding radiation exposure. Instructed By Dulce Maria Isabel RN. In Department of CARDIOLOGY. documented in this encounter [facility] 06-13-2022 Miscellaneous Notes Reviewed with Dr. Terry. Dr. Terry advised Mr. Friend does not need to have his pre procedure appointments or procedure rescheduled. Dr. Terry advised to cancel the covid test scheduled on 06/22/22. EP lab notified by this message. Patient contacted and will attend appointments as scheduled. Sasha Colunga Images from the original note were not included. Mr. Friend called to report he was unable to obtain a PCR COVID test yesterday, so he will need to reschedule his ablation scheduled at the end of May as he will not be outside of the 10 day quarantine. Please contact the patient to reschedule. Thank you Sasha documented in this encounter [facility] 06-11-2022 Miscellaneous Notes Patient called to report he is on vacation and home tested positive for COVID He is scheduled for OPD visits on 04/25/22 and watchman/PVI on 06/25/22. Spoke to EP lab switch maker who advised the patient should have formal PCR COVID test TODAY and have results faxed to the office. Office fax number provided. If testing is done today, patient will still be within the 10 day window (actually 11 days) quarantine and will be able to attend OPD visits and have procedure as scheduled. If testing is not done today, he will be outside of the 10 day window and will need to be rescheduled. If COVID testing is done today, preop COVID test can be canceled a scheduled on 06/22/22 per protocol. Sasha [facility] documented in this encounter [facility] 05-14-2022 Miscellaneous Notes Patient returned call & declined date. The date of 06/25/22 with offered & accepted by patient. Needs Shared Decision Making appointment with Clinical Cardiology, ECG, pre-op Covid-19 test & Labs (CBC,BMP,30 day T&S with Confirm) on 06/22/22, prior to procedure date. Per patient, on Eliquis 5 mg x 2 daily. The date of 06/27/22 with offered. Awaiting confirmation from patient. ----- Message from Odessa Terry MD sent at 05/07/2022 5:47 PM EDT ----- Regarding: AF ablation + Watchman Please schedule for AF ablation and Watchman. Carto RF. Needs shared decision making. Please verify anticoagulation status. Odessa Terry MD documented in this encounter [facility] 05-04-2022 Miscellaneous Notes Patient calling Dr. Terry's office to advise he wishes to move forward with scheduling ablation and watchman procedure. Dr. Terry will be notified and will send scheduling order to the EP lab. [facility] documented in this encounter [facility] 01-29-2022 History of Present illness Narrative ecj documented in this encounter [facility] 01-29-2022 History of Present illness Narrative Images from the original note were not included. [facility] [place] Ethan Rodgers Department of Cardiovascular Medicine [facility] OUTPATIENT VISIT DATE January 29, 2022 OUTPATIENT VISIT TYPE Established Patient PRIMARY CARE PHYSICIAN: Abril Yeboah MD [address] [place] [id number] REFERRING PHYSICIAN: Milton Alberts ([facility]) [address] [address] [facility] [address] CHIEF COMPLAINT: palpitations HISTORY OF PRESENT ILLNESS: Mr. Friend is a 61 year old male who presents today with palpitations rare, last night when wakening and not feeling comfortable with CPAP in place. This is getting better. He denies chest pain, shortness of breath, orthopnea, cough, edema, PND, lightheadedness or syncope. PROBLEM LIST: Specialty Problems Cardiology Problems HTN (hypertension) Persistent atrial fibrillation (HCC) PAST MEDICAL HISTORY Diagnosis Date Atrial fibrillation (HCC) 11/08/13 GERD (gastroesophageal reflux disease) HTN (hypertension) 1999 Hyperlipemia Insomnia Osteoarthritis Stroke due to intracerebral hemorrhage (HCC) 01/2005 Right thalamic and right internal capsule hemorrhage on asa at the time., unsure of dose PAST SURGICAL HISTORY Procedure Laterality Date CARDIAC CATH 2004 OPEN REPAIR OF ROTATOR CUFF ACUTE 2004 Rotator cuff repair right SOCIAL HISTORY Social History Tobacco Use Smoking status: Never Smoker Smokeless tobacco: Never Used Vaping Use Vaping Use: Never used Substance Use Topics Alcohol use: Yes Comment: 2-3 drinks weekly Drug use: No FAMILY HISTORY Problem Relation Age of Onset Coronary Artery Disease Mother PPM Heart Father afib, stroke Stroke Father No Known Problems Sister ALLERGIES: ALLERGIES Allergen Reactions Brynn Inhibitors Swelling Lobster (Crustacean* Unknown MEDICATIONS: glucosamine/chondr christiansen A sod (OSTEO BI-FLEX ORAL) Take by mouth once daily. ELIQUIS 5 mg tab(s) TAKE 1 TABLET BY MOUTH TWICE A DAY cholecalciferol (VITAMIN D-3) 5,000 unit tab Take 5,000 Units by mouth once daily. Magnesium Oxide 250 mg magnesium tab Take 1 tablet by mouth. omeprazole (PRILOSEC) 20 mg capsule Take 20 mg by mouth once daily. hydrochlorothiazide 25 mg tablet Take 25 mg by mouth once daily. zolpidem (AMBIEN) 10 mg tab Take 5 mg by mouth daily at bedtime. atenolol 50 mg tablet Take 50 mg by mouth twice daily. Verapamil SR 240 mg 24 hr capsule Take 240 mg by mouth daily at bedtime. hydrALAZINE 25 mg tablet Take 25 mg by mouth three times daily. REVIEW OF SYSTEMS: GENERAL: Negative for: Weight loss or gain, Fever or Chills, Weakness and Sleep difficulties. HEENT: Negative for: Headache, Impaired Vision, Glasses, Hearing Impairment, Ringing in Ears, Nosebleeds, Poor dental care, Bleeding Gums, Dentures NECK: Negative for: Swelling, Pain, Stiffness RESPIRATORY: Negative for: Cough, Blood in Sputum, Shortness of breath, Wheezing, Apnea GASTROINTESTINAL: Negative for: Trouble swallowing, Heartburn, Change in bowel habits, Blood in stool, Dark black stools MUSCULOSKELETAL: Negative for: Muscle or joint pain, Stiffness , Joint swelling NEUROLOGIC/PSYCHIATRIC: Negative for: Weakness, Paralysis, Numbness, Tingling, Tremor, Nervousness, Depressed mood, Memory loss SKIN: Negative for: Rashes, Itching HEMATOLOGICAL/LYMPHATIC: Negative for: Easy bruising , Easy bleeding ENDOCRINE: Negative for: Heat or cold intolerance, Excessive sweating, Frequent urination, Frequent thirst I personally interviewed, confirmed and edited the above information if obtained by others. PHYSICAL EXAMINATION: BP 167/93 Pulse 62 Wt 93 kg (205 lb) BMI 33.09 kg/m General: Well appearing, in no acute distress. Skin: No clubbing, no cyanosis. Eyes: Extra ocular movements intact Oropharynx: Teeth in good repair. Neck: No jugular venous distention, no carotid bruits, carotids have a normal upstroke, no palpable thyromegaly. Lungs: Clear to auscultation bilaterally, no wheezing or rhonchi. Heart: Regular rhythm, PMI not displaced, S1, S2 normal, no S3, no S4, no heaves, no rub and no murmur. Abdomen: Soft, nontender, bowel sounds normal, no palpable organomegaly, no bruits. Extremities: No peripheral edema . Grade 2/4 distal pulses bilaterally. Neuro: Oriented to person, place and time, alert, cooperative, gait coordinated. CARDIOVASCULAR MEDICINE TESTING: Electrocardiogram: normal EKG I have personally reviewed the Electrocardiogram. IMPRESSION: Mr. Friend is a 61 year old male with pafib , occasional short lived episodes on CPAP , in sinus now. . PLAN AND RECOMMENDATIONS: (I48.0) Paroxysmal atrial fibrillation (HCC) (primary encounter diagnosis) Comment: in sinus today Plan: cont Eliquis -treadmill stress test (I10) Primary hypertension Comment: not controlled today , 140 /90s at home Plan: low salt diet and weight loss reviewed -increase hydralazine 50mg three times a day CONTACT INFORMATION: MD Rashel Martinez and Naz Rodgers Department of Cardiovascular Medicine Heart [facility] [place] [facility] Cardiology [address] [place] [address] 2nd [place] [address] documented in this encounter [facility] 12-13-2021 Note HNO ID: [id number] Author: Ita Pabon RN Service: ? Author Type: Registered Nurse Type: Nursing Progress Note Filed: 12/13/2021 10:23 AM Note Text: Discharge instructions given to patient and . [facility] 05-31-2021 Note HNO ID: [id number] Author: Venessa Theodore (Repairer [employer]) Service: Pharmacy Author Type: ? Type: Plan of Care Filed: 06/01/2021 11:04 AM Note Text: PHARMACY BEDSIDE DELIVERY SERVICE Patient Name: Milton Friend The marked outpatient medications were filled and delivered bedsdie. Medication List START taking these medications * ELIQUIS 5 mg tab(s) Generic drug: apixaban Take 1 tablet by mouth twice daily. * apixaban 5 mg tab(s)X Commonly known as: ELIQUIS Take 1 tablet by mouth twice daily. * This list has 2 medication(s) that are the same as other medications prescribed for you. Read the directions carefully, and ask your doctor or other care provider to review them with you. CONTINUE taking these medications AMBIEN 10 mg Generic drug: zolpidem atenolol 50 mg tablet Commonly known as: TENORMIN hydrALAZINE 25 mg tablet Commonly known as: APRESOLINE hydroCHLOROthiazide 25 mg tablet Commonly known as: HYDRODIURIL, ESIDRIX lisinopril 20 mg tablet Commonly known as: ZESTRIL, PRINIVIL NYQUIL ORAL omeprazole 20 mg capsule Commonly known as: PriLOSEC pravastatin 20 mg tablet Commonly known as: PRAVACHOL predniSONE 20 mg tablet Commonly known as: DELTASONE sodium chloride 0.9 % (flush) syringe Commonly known as: BD POSIFLUSH Inject 2-10 mL intravenously as directed. For Echo procedure verapamil ER 240 mg 24 hr capsule Commonly known as: VERELAN ZANTAC ORAL You might also be taking other medications not listed above. If you have questions about any of your other medications, talk to the person who prescribed them or your Primary Care Provider. Venessa Theodore ([employer]aire[employer]) PAGER: [phone] May 31, 2021 11:04 AM [facility] 05-31-2021 Note HNO ID: [id number] Author: Ita Pabon RN Service: ? Author Type: Registered Nurse Type: Nursing Progress Note Filed: 05/31/2021 12:54 PM Note Text: Discharge instructions given to patient and . [facility] Evaluation note Diagnosis Paroxysmal atrial fibrillation (HCC)- Primary Atrial fibrillation Primary hypertension Unspecified essential hypertension documented in this encounter [facility] note* Diagnosis Persistent atrial fibrillation (HCC)- Primary Atrial fibrillation Primary hypertension Unspecified essential hypertension documented in this encounter [facility] note* Diagnosis Persistent atrial fibrillation (HCC)- Primary Atrial fibrillation documented in this encounter [facility] note* Diagnosis Preop cardiovascular exam- Primary Pre-operative cardiovascular examination Paroxysmal atrial fibrillation (HCC) [I48.0 (ICD-10-CM)] Atrial fibrillation 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) [I61.2 (ICD-10-CM)] Atrial fibrillation, unspecified type (HCC) documented in this encounter [facility] note* Diagnosis Atrial fibrillation, unspecified type (HCC)- Primary Atrial fibrillation, unspecified type (HCC) documented in this encounter [facility] note* Diagnosis Paroxysmal atrial fibrillation (HCC) [I48.0 (ICD-10-CM)]- Primary Atrial fibrillation documented in this encounter [facility] note* Diagnosis Persistent atrial fibrillation (HCC)- Primary Atrial fibrillation documented in this encounter [facility] note* Diagnosis Atrial fibrillation, persistent (HCC)- Primary Atrial fibrillation documented in this encounter [facility] note* Diagnosis Persistent atrial fibrillation (HCC) Atrial fibrillation documented in this encounter [facility] note* Diagnosis 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) [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 for referral (narrative)* Outpatient Procedure (Routine) - Pending Review Specialty Diagnoses / Procedures Referred By Deysi saha Referred To Contact [facility] Diagnoses Persistent atrial fibrillation (HCC) Procedures ECHO TRANSESOPHAGEAL ECHO TRANSESOPHAG R-T 2D W/PRB IMG ACQUISJ I&R Odessa Terry MD [address] [place] [address] [place] [id number] [place] [address] Referral ID Status Reason Start Date Expiration Date Visits Requested Visits Authorized [id number] Pending Review Auto-Generat ed Referral 05/14/2022 05/14/2023 1 1 * Outpatient Procedure (Routine) - Pending Review Specialty Diagnoses / Procedures Referred By Deysi saha Referred To Contact [facility] Diagnoses Persistent atrial fibrillation (HCC) Procedures ECG COMPLETE ECG ROUTINE ECG W/LEAST 12 LDS W/I&R Odessa Terry MD [address] [place] [address] [facility] [address] [place] [id number] Referral ID Status Reason Start Date Expiration Date Visits Requested Visits Authorized [id number] Pending Review Auto-Generat ed Referral 05/14/2022 05/14/[address] [facility] for referral (narrative)* Outpatient Procedure (Routine) - Pending Review Specialty Diagnoses / Procedures Referred By Contac t Referred To Contact [facility] Diagnoses Persistent atrial fibrillation (HCC) Procedures ECHO TRANSESOPHAGEAL ECHO TRANSESOPHAG R-T 2D W/PRB IMG ACQUISJ I&R Polly Alvarez APRN.RETAIL ADVISOR [address] [place] [id number] [place] [address] [place] [address] Referral ID Status Reason Start Date Expiration Date Visits Requested Visits Authorized [id number] Pending Review Auto-Generat ed Referral 06/26/2022 06/26/2023 1 1 * Outpatient Procedure (Routine) - Pending Review Specialty Diagnoses / Procedures Referred By Deysi t Referred To Contact [facility] Diagnoses Persistent atrial fibrillation (HCC) Procedures ECG COMPLETE ECG ROUTINE ECG W/LEAST 12 LDS W/I&R Polly Alvarez APRN.CNP [address], [address] [place] [address] [place] [id number] [place] [address] Referral ID Status Reason Start Date Expiration Date Visits Requested Visits Authorized [id number] Pending Review Auto-Generat ed Referral 06/26/2022 06/26/2023 1 1 * Outpatient Procedure (Routine) - Pending Review Specialty Diagnoses / Procedures Referred By Contac t Referred To Contact [facility] Diagnoses Persistent atrial fibrillation (HCC) Procedures ECHO TRANSESOPHAGEAL ECHO TRANSESOPHAG R-T 2D W/PRB IMG ACQUISJ I&R Polly Alvarez APRN.RETAIL ADVISOR [address], [address] [place] [phone] [facility] [address] [place] [phone] Referral ID Status Reason Start Date Expiration Date Visits Requested Visits Authorized [id number] Pending Review Auto-Generat ed Referral 06/26/2022 06/26/2023 1 1 * Outpatient Procedure (Routine) - Pending Review Specialty Diagnoses / Procedures Referred By Contac t Referred To Contact [facility] Diagnoses Persistent atrial fibrillation (HCC) Procedures ECG COMPLETE ECG ROUTINE ECG W/LEAST 12 LDS W/I&R Polly Alvarez APRN.RETAIL ADVISOR [address], [address] [place] [address] [facility] [address] [place] [address] Referral ID Status Reason Start Date Expiration Date Visits Requested Visits Authorized [id number] Pending Review Auto-Generat ed Referral 06/26/2022 06/26/2023 1 1 * Outpatient Procedure (Routine) - Pending Review Specialty Diagnoses / Procedures Referred By Contac t Referred To Contact [facility] Diagnoses Persistent atrial fibrillation (HCC) Procedures ECHO ECHO TTHRC R-T 2D W/WOM-MODE COMPL SPEC&COLR D Polly Alvarez APRN.RETAIL ADVISOR [address], [address] [place] [address] [facility] [place] [address] [place] [address] Referral ID Status Reason Start Date Expiration Date Visits Requested Visits Authorized [id number] Pending Review Auto-Generat ed Referral 06/26/2022 06/26/[address] [facility] for referral (narrative)* Outpatient Procedure (Routine) - Pending Review Specialty Diagnoses / Procedures Referred By Deysi saha Referred To Contact [facility] Diagnoses Atrial fibrillation, persistent (HCC) Procedures ECHO TRANSESOPHAGEAL ECHO TRANSESOPHAG R-T 2D W/PRB IMG ACQUISJ I&R Odessa Terry MD [address] [place] [address] [facility] [address] [address] Referral ID Status Reason Start Date Expiration Date Visits Requested Visits Authorized [id number] Pending Review Auto-Generat ed Referral 10/04/2022 10/04/[address] [facility] for visit Narrative* Diagnostic Procedure Only (Routine) - Closed Specialty Diagnoses / Procedures Referred By Deysi saha Referred To Contact Cardiology / [facility] [place] Diagnoses DX 3-4 MONTH PVI+WATCHMAN F/U AFIB W EKG, JOSE Procedures TRANSESOPHAGEAL ECHO Odessa Terry MD [address] [place] [address] Card Function Lab [address] [place] [address] Referral ID Status Reason Start Date Expiration Date Visits Re quested Visits Authorized [id number] Closed 10/04/2022 01/02/2023 1 1 [facility] Summary Purpose Family History No Family History Records FoundNo Family History Records FoundNo Family History Records FoundNo Family History Records FoundNo Family History Records Found Advance Directives No Advanced Directives Records FoundDocuments on File Type Date Recorded Patient Service Center Assistant Expl anation Advance Directive(s) 12/11/2021 1:47 PM Advance Directive(s) 05/29/2021 9:08 AM Documents on File Type Date Recorded Patient Service Center Assistant Expl anation Advance Directive(s) 12/11/2021 1:47 PM Advance Directive(s) 05/29/2021 9:08 AM Medications Administered Section Inactive Administered Medications - up to 3 most recent administrations Medication Order MAR Action Action Date Dose Rate Site benzocaine 20% (TOPEX) TOPICAL, X (OR/PROCEDURE) PRN, Starting on Chrissy 10/04/22 at 1020, Until Chrissy 10/04/22 at 1020, Intraprocedure Given 10/04/2022 10:20 AM EST 2 Sprays fentaNYL 50 mcg/mL injection (SUBLIMAZE) INTRAVENOUS, X (OR/PROCEDURE) PRN, Starting on Chrissy 10/04/22 at 1022, Until Chrissy 10/04/22 at 1028, Intraprocedure Given 10/04/2022 10:28 AM EST 25 mcg Given 10/04/2022 10:25 AM EST 25 mcg Given 10/04/2022 10:22 AM EST 25 mcg lidocaine viscous 2 % (XYLOCAINE) ORAL, X (OR/PROCEDURE) PRN, Starting on Chrissy 10/04/22 at 1020, Until Chrissy 10/04/22 at 1020, Intraprocedure Given 10/04/2022 10:20 AM EST 15 mL midazolam (PF) injection (VERSED) INTRAVENOUS, X (OR/PROCEDURE) PRN, Starting on Chrissy 10/04/22 at 1023, Until Chrissy 10/04/22 at 1028, Intraprocedure Given 10/04/2022 10:28 AM EST 1 mg Given 10/04/2022 10:25 AM EST 1 mg Given 10/04/2022 10:23 AM EST 1 mg Additional Source Comments (unrecognized sect ion and content) No Status Records FoundNo Status Records FoundNo Status Records FoundNo Status Records FoundNo Status Records Found INFORMATION SOURCE (unrecogn ized section and content) DATE CREATED AUTHOR 12/13/[address] [facility] DATE CREATED AUTHOR AUTHOR'S ORGANIZ ATION 03/14/2023 [facility] DATE CREATED AUTHOR AUTHOR'S ORGANIZ ATION 06/15/2023 [facility] DATE CREATED AUTHOR AUTHOR'S ORGANIZ ATION 09/14/2023 [facility] EPIC DATE CREATED AUTHOR AUTHOR'S HUMPHREY RIVERA 03/26/2024 [facility] Source Comments (unrecognize d section and content) In the event this informatio n is protected by the Federal Confidentiality of Alcohol and Drug Abuse Patient Records regulations: The Federal rules restrict any use of the information to criminally investigate or prosecute any alcohol or drug abuse patient.[facility] the event this information is protected by the Federal Confidentiality of Alcohol and Drug Abuse Patient Records regulations: The Federal rules restrict any use of the information to criminally investigate or prosecute any alcohol or drug abuse patient.[facility] Hospital[facility] the event this information is protected by the Federal Confidentiality of Alcohol and Drug Abuse Patient Records regulations: The Federal rules restrict any use of the information to criminally investigate or prosecute any alcohol or drug abuse patient.[facility] the event this information is protected by the Federal Confidentiality of Alcohol and Drug Abuse Patient Records regulations: The Federal rules restrict any use of the information to criminally investigate or prosecute any alcohol or drug abuse patient.[facility] Hospital[facility] the event this information is protected by the Federal Confidentiality of Alcohol and Drug Abuse Patient Records regulations: The Federal rules restrict any use of the information to criminally investigate or prosecute any alcohol or drug abuse patient.[facility] Hospital[facility] the event this information is protected by the Federal Confidentiality of Alcohol and Drug Abuse Patient Records regulations: The Federal rules restrict any use of the information to criminally investigate or prosecute any alcohol or drug abuse patient.[facility] Hospital[facility] the event this information is protected by the Federal Confidentiality of Alcohol and Drug Abuse Patient Records regulations: The Federal rules restrict any use of the information to criminally investigate or prosecute any alcohol or drug abuse patient.[facility] Hospital[facility] the event this information is protected by the Federal Confidentiality of Alcohol and Drug Abuse Patient Records regulations: The Federal rules restrict any use of the information to criminally investigate or prosecute any alcohol or drug abuse patient.[facility] HospitalIn the event this information is protected by the Federal Confidentiality of Alcohol and Drug Abuse Patient Records regulations: The Federal rules restrict any use of the information to criminally investigate or prosecute any alcohol or drug abuse patient.[facility]In the event this information is protected by the Federal Confidentiality of Alcohol and Drug Abuse Patient Records regulations: The Federal rules restrict any use of the information to criminally investigate or prosecute any alcohol or drug abuse patient.[facility]In the event this information is protected by the Federal Confidentiality of Alcohol and Drug Abuse Patient Records regulations: The Federal rules restrict any use of the information to criminally investigate or prosecute any alcohol or drug abuse patient.[facility]In the event this information is protected by the Federal Confidentiality of Alcohol and Drug Abuse Patient Records regulations: The Federal rules restrict any use of the information to criminally investigate or prosecute any alcohol or drug abuse patient.[facility]In the event this information is protected by the Federal Confidentiality of Alcohol and Drug Abuse Patient Records regulations: The Federal rules restrict any use of the information to criminally investigate or prosecute any alcohol or drug abuse patient.[facility] HospitalIn the event this information is protected by the Federal Confidentiality of Alcohol and Drug Abuse Patient Records regulations: The Federal rules restrict any use of the information to criminally investigate or prosecute any alcohol or drug abuse patient.[facility] HospitalIn the event this information is protected by the Federal Confidentiality of Alcohol and Drug Abuse Patient Records regulations: The Federal rules restrict any use of the information to criminally investigate or prosecute any alcohol or drug abuse patient.[facility] HospitalIn the event this information is protected by the Federal Confidentiality of Alcohol and Drug Abuse Patient Records regulations: The Federal rules restrict any use of the information to criminally investigate or prosecute any alcohol or drug abuse patient.[facility]In the event this information is protected by the Federal Confidentiality of Alcohol and Drug Abuse Patient Records regulations: The Federal rules restrict any use of the information to criminally investigate or prosecute any alcohol or drug abuse patient.[facility] HospitalIn the event this information is protected by the Federal Confidentiality of Alcohol and Drug Abuse Patient Records regulations: The Federal rules restrict any use of the information to criminally investigate or prosecute any alcohol or drug abuse patient.[facility]In the event this information is protected by the Federal Confidentiality of Alcohol and Drug Abuse Patient Records regulations: The Federal rules restrict any use of the information to criminally investigate or prosecute any alcohol or drug abuse patient.[facility] HospitalIn the event this information is protected by the Federal Confidentiality of Alcohol and Drug Abuse Patient Records regulations: The Federal rules restrict any use of the information to criminally investigate or prosecute any alcohol or drug abuse patient.[facility] HospitalIn the event this information is protected by the Federal Confidentiality of Alcohol and Drug Abuse Patient Records regulations: The Federal rules restrict any use of the information to criminally investigate or prosecute any alcohol or drug abuse patient.[facility] HospitalIn the event this information is protected by the Federal Confidentiality of Alcohol and Drug Abuse Patient Records regulations: The Federal rules restrict any use of the information to criminally investigate or prosecute any alcohol or drug abuse patient.[facility] HospitalIn the event this information is protected by the Federal Confidentiality of Alcohol and Drug Abuse Patient Records regulations: The Federal rules restrict any use of the information to criminally investigate or prosecute any alcohol or drug abuse patient.[facility] HospitalIn the event this information is protected by the Federal Confidentiality of Alcohol and Drug Abuse Patient Records regulations: The Federal rules restrict any use of the information to criminally investigate or prosecute any alcohol or drug abuse patient.[facility] HospitalIn the event this information is protected by the Federal Confidentiality of Alcohol and Drug Abuse Patient Records regulations: The Federal rules restrict any use of the information to criminally investigate or prosecute any alcohol or drug abuse patient.[facility] HospitalIn the event this information is protected by the Federal Confidentiality of Alcohol and Drug Abuse Patient Records regulations: The Federal rules restrict any use of the information to criminally investigate or prosecute any alcohol or drug abuse patient.[facility] HospitalIn the event this information is protected by the Federal Confidentiality of Alcohol and Drug Abuse Patient Records regulations: The Federal rules restrict any use of the information to criminally investigate or prosecute any alcohol or drug abuse patient.[facility] HospitalIn the event this information is protected by the Federal Confidentiality of Alcohol and Drug Abuse Patient Records regulations: The Federal rules restrict any use of the information to criminally investigate or prosecute any alcohol or drug abuse patient.[facility] HospitalIn the event this information is protected by the Federal Confidentiality of Alcohol and Drug Abuse Patient Records regulations: The Federal rules restrict any use of the information to criminally investigate or prosecute any alcohol or drug abuse patient.[facility] HospitalIn the event this information is protected by the Federal Confidentiality of Alcohol and Drug Abuse Patient Records regulations: The Federal rules restrict any use of the information to criminally investigate or prosecute any alcohol or drug abuse patient.[facility] HospitalIn the event this information is protected by the Federal Confidentiality of Alcohol and Drug Abuse Patient Records regulations: The Federal rules restrict any use of the information to criminally investigate or prosecute any alcohol or drug abuse patient.[facility] Reason for Visit (unrecogniz ed section and content) Reason Comments Follow Up JOSE, CVN Reason Comments Patient Update Reason Comments Schedule Surgery PVI ablation+Watchma n Reason Comments Patient Update Reschedule procedure request Reason Comments Patient Education EPS-PVI + Watchman Reason Comments transmitter Reason Comments Follow Up Phone Call Relate care dischar ge follow in-[id number] clear Reason Comments Patient Update COVID Reason Comments Reminder Call jose Reason Comments Refill Request Reason Comments Patient Question Patient left a VM on Device Clinic line, want to know the model number of the Watchman that was implanted in the fall. Please call the patient at [phone] Reason Comments Patient Question Reason Comments Reminder Call Transesophageal Echo 04/16/23 Reason Comments Patient Question [facility] Care Teams (unrecognized sec tion and content) Chief Procurement Officer Relationship Specialty Start Date End Date Abril Yeboah MD PCP - General Family Practice 11/09/13 Milton Alberts MD [place], [place] [id number] Primary Staff Physician Cardiology 10/05/21 Chief Procurement Officer Relationship Specialty Start Date End Date Abril Yeboah MD PCP - General Family Practice 11/09/13 Milton Alberts MD [place], [place] [id number] Primary Staff Physician Cardiology 10/05/21 Chief Procurement Officer Relationship Specialty Start Date End Date Abril Yeboah MD PCP - General Family Practice 11/09/13 [place] [address] [place] [place], [place] [id number] [phone] Staff Physician Cardiology 10/05/21 Chief Procurement Officer Relationship Specialty Start Date End Date Abril Yeboah MD PCP - General Family Practice 11/09/13 [place] [address] Primary Staff Physician Cardiology 10/05/21 Chief Procurement Officer Relationship Specialty Start Date End Date Abril Yeboah MD PCP - General Family Practice 11/09/13 [place] [address] Primary Staff Physician Cardiology 10/05/21 Chief Procurement Officer Relationship Specialty Start Date End Date Abril Yeboah MD PCP - General Family Practice 11/09/13 [place] [address] Primary Staff Physician Cardiology 10/05/21 Chief Procurement Officer Relationship Specialty Start Date End Date Abril Yeboah MD PCP - General Family Practice 11/09/13 [place] [address] Primary Staff Physician Cardiology 10/05/21 Chief Procurement Officer Relationship Specialty Start Date End Date Abril Yeboah MD PCP - General Family Practice 11/09/13 [place] [address] Primary Staff Physician Cardiology 10/05/21 Chief Procurement Officer Relationship Specialty Start Date End Date Abril Yeboah MD PCP - General Family Practice 11/09/13 [place] [address] Primary Staff Physician Cardiology 10/05/21 Chief Procurement Officer Relationship Specialty Start Date End Date Abril Yeboah MD PCP - General Family Practice 11/09/13 [place] [address] Primary Staff Physician Cardiology 10/05/21 Chief Procurement Officer Relationship Specialty Start Date End Date Abril Yeboah MD PCP - General Family Practice 11/09/13 [place] [address] Primary Staff Physician Cardiology 10/05/21 Chief Procurement Officer Relationship Specialty Start Date End Date Abril Yeboah MD PCP - General Family Medicine 11/09/13 [place] [address] Primary Staff Physician Cardiology 10/05/21 Chief Procurement Officer Relationship Specialty Start Date End Date Abril Yeboah MD PCP - General Family Medicine 11/09/13 [place] [address] Primary Staff Physician Cardiology 10/05/21 Chief Procurement Officer Relationship Specialty Start Date End Date Abril Yeboah MD PCP - General Family Medicine 11/09/13 [place] [address] Primary Staff Physician Cardiology 10/05/21 Chief Procurement Officer Relationship Specialty Start Date End Date Abril Yeboah MD PCP - General Family Medicine 11/09/13 [place] [address] Primary Staff Physician Cardiology 10/05/21 Chief Procurement Officer Relationship Specialty Start Date End Date Abril Yeboah MD PCP - General Family Medicine 11/09/13 [place] [address] Primary Staff Physician Cardiology 10/05/21 Chief Procurement Officer Relationship Specialty Start Date End Date Abril Yeboah MD PCP - General Family Medicine 11/09/13 [place] [address] Primary Staff Physician Cardiology 10/05/21 Chief Procurement Officer Relationship Specialty Start Date End Date Abril Yeboah MD PCP - General Family Medicine 11/09/13 [place] [address] Primary Staff Physician Cardiology 10/05/21 Chief Procurement Officer Relationship Specialty Start Date End Date Abril Yeboah MD PCP - General Family Medicine 11/09/13 [place] [address] Primary Staff Physician Cardiology 10/05/21 FOR RECORDS PERTAINING TO PATIENTS WHO ARE OR HAVE BEEN ENROLLED IN A CHEMICAL DEPENDENCY/SUBSTANCEABUSE PROGRAM, SOME INFORMATION MAY BE OMITTED. This clinical summary was aggregated from multiple sources. Caution should be exercised in using it in the provision of clinical care. This summary normalizes information from multiple sources, and as a consequence, information in this document may materially change the coding, format and clinical context of patient data. In addition, data may be omitted in some cases. CLINICAL DECISIONS SHOULD BE BASED ON THE PRIMARY CLINICAL RECORDS. [facility] [employer] [facility]. provides no warranty or guarantee of the accuracy or completeness of information in this document.
== END 2024-03-23 08:43 ==
LOC: LAB 08:42
PROVIDERS: PCP Family Medicine; Visit Provider Family Medicine
DX: E78.1 Pure hyperglyceridemia (principal); Z12.11 Encounter for screening for malignant neoplasm of colon; M19.90 Unspecified osteoarthritis, unspecified site; I48.0 Paroxysmal atrial fibrillation; M1A.00X0 Idiopathic chronic gout, unspecified site, without tophus (tophi); Z12.5 Encounter for screening for malignant neoplasm of prostate; E11.9 Type 2 diabetes mellitus without complications; Z79.899 Other long term (current) drug therapy; I10 Essential (primary) hypertension; R76.8 Other specified abnormal immunological findings in serum; I69.959 Hemiplegia and hemiparesis following unspecified cerebrovascular disease affecting unspecified side
CPT/HCPCS: G0328

== ENCOUNTER 2024-06-12 15:23 | Outpatient (OUT) | payer MEDICARE, SELFPAY | END 2024-06-12 15:24 | disposition home or self-care (01) | LOC: PST 15:24 | PROVIDERS: PCP Family Medicine; Visit Provider Surgery | DX: Z01.818 Encounter for other preprocedural examination (principal); R19.5 Other fecal abnormalities ==

== ENCOUNTER 2024-06-24 06:42 | Day surgery (SDC) | payer MEDICARE, SELFPAY ==
--- NOTE | 2024-06-24 | OP_ITS ---
OPERATION DATE: 06/24/2024 PREOPERATIVE DIAGNOSIS: Positive fecal occult blood test. POSTOPERATIVE DIAGNOSIS: Prominent dilated rectal vein. PROCEDURE: Colonoscopy to cecum. SURGEON: Oh Malhotra M.D. ANESTHESIA: Monitored anesthesia care. ESTIMATED BLOOD LOSS: Zero. INDICATIONS AND CONSENT: Patient is a 64-year-old male, was recently found to have positive fecal occult blood. Indications, risks, benefits, alternatives of proceeding with colonoscopy were explained extensively to the patient, including the risks of bleeding, colon perforation or anesthetic complications. All of his questions were answered. Informed consent was obtained. PROCEDURE: Patient brought to the operating room, placed in the left lateral decubitus position. Monitored anesthesia care was provided. Rectal exam was performed which showed no masses or blood. The scope was inserted into the anal canal. Under direct visualization was advanced. It was advanced to the cecum where cecal markings were clearly identified. There was noted to be a good prep. Upon withdrawal of the scope, mucosal surfaces were carefully examined. There were no mass lesions or polyps. No inflammatory changes or ulcerations. There was rare sigmoid diverticulosis. The scope was retroflexed in the anal canal. There was noted to be multiple dilated veins within the rectum without inflammatory changes or ulceration. There was no bleeding. No significant hemorrhoidal disease. Scope was then withdrawn. Patient tolerated procedure well, was sent to recovery room in good condition. f/u screening colonoscopy should be in 10 years. CC: Rivera Raza M.D. MTDD
--- OUTSIDE RECORDS SUMMARY | 2024-06-24 06:46 | XMS_ITS | CCD ---
Author Organization [facility] CliniSyme Care Team Providers Care Inspector Bullet Slugs Name Role Phone Abril Yeboah MD Primary Care Provider [phone] Milton Alberts MD Unavailable [phone] OBIN[address] ., DR SAMUESL Attending Unavailable PAMELAY ., DR SAMUELS Consulting Unavailable PAMELAY ., DR SAMUELS Primary Care Unavailable PAMELAY ., DR SAMUELS Admitting Unavailable Abril Yeboah MD Primary Care Provider [phone] Milton Alberts MD Unavailable ABRIL YEBOAH Primary Care Unavailable WAZNI, OUSSAMA M Attending Unavailable WAZNI, OUSSAMA M Referring Unavailable HOY, ABRIL M Primary Care Unavailable WAZNI, OUSSAMA M Referring Unavailable HOY, ABRIL M Primary Care Unavailable WAZNI, OUSSAMA M Referring Unavailable HOY, ABRIL M Primary Care Unavailable WAZNI, OUSSAMA M Referring Unavailable WAZNI, OUSSAMA M Referring Unavailable HOY, ABRIL M Primary Care Unavailable WAZNI, OUSSAMA M Referring Unavailable WASEVAN, HEBRENDA Attending Unavailable HOY, ABRIL M Primary [...] LINK Referring Unavailable IOANA MUÑIZ Attending Unavailable Abril Yeboah Primary Care Physician Dara RICHARDSON Attending Unavailable Abril Yeboah Referring Unavailable Allergies Allergy Classification Reported Allergen(s) Allergy Type Date of Onset Reaction(s) Facility (3 sources) Angiotensin-conv erting enzyme inhibitor agent; Translations: [BRYNN INHIBITORS] Drug Allergy 1 Swelling [facility] (20 sources) Lobster - dietary; Translations: [LOBSTER (CRUSTACEANS)] Food Allergy 4 Unknown [facility] (20 sources) Amino Acids; Translations: [AMINO ACIDS] Drug Allergy 2 Other: See Comments [facility] (20 sources) Angiotensin-conv erting enzyme inhibitor agent Drug Allergy 1 Swelling [facility] (20 sources) Ciprofloxacin; Translations: [CIPROFLOXACIN] Drug Allergy 2 Other: See Comments, Joint pain (finding) [facility] (2 sources) Amino Acids; Translations: [lisinopril] Drug Allergy 2 [facility] (1 source) Angiotensin Converting Enzyme (Brynn) Inhibitors Drug allergy (disorder) 1 [facility] (2 sources) Ciprofloxacin; Translations: [Cipro] Drug Allergy 2 [facility] (1 source) Lisinopril; Translations: [lisinopril] Drug Allergy Edema of the tongue (disorder) [facility] [place] Medications Current Medications Medication Drug Class(es) Dates Sig (Normalized) Sig (Original) allopurinol 100 mg oral tablet (1 source) Xanthine Oxidase Inhibitor Start: 04-07-2024 take 1 tablet by mouth once daily allopurinol 100 mg Tab 100 mg = 1 tab(s), Oral, Daily, Refills(s) 0 Start Date: 04/07/24 Status: Ordered aspirin 81 mg chewable tablet (20 sources) Platelet Aggregation Inhibitor, Nonsteroidal Anti-inflammatory Drug Start: 04-07-2024 aspirin 81 mg Chew Tab 81 mg = 1 tab(s), Chewed, Daily, Refills(s) 0 Start Date: 04/07/24 Status: Ordered Start: 06-25-2022 End: 08-14-2022 take 1 tablet by mouth once daily aspirin, enteric coated (ECOTRIN LOW STRENGTH) 81 mg EC tablet Take 1 tablet by mouth once daily. 50 tablet 0 06/25/2022 Active Comment on above: Take 1 tablet by wolfgang th once daily. atenolol 50 mg oral tablet (20 sources) beta-Adrenergic Kirk Start: 04-07-2024 take 2 tablets by mouth once daily atenolol 50 mg Tab 100 mg = 2 tab(s), Oral, Daily, Refills(s) 0 Start Date: 04/07/24 Status: Ordered take 1 tablet by mouth twice iván ly atenolol 50 mg tablet Take 50 mg by mouth twice daily. 0 Active Comment on above: Take 50 mg by mouth twice daily. Chondroitin Sulfates / Glucosamine (1 source) Start: 4 Glucosamine Chondroitin Refill(s) 0 Start Date: 04/07/24 Status: Ordered diazePAM 5 mg oral tablet (20 sources) Benzodiazepine Start: 4 take 1 tablet by mouth twice daily diazepam 5 mg Tab 5 mg = 1 tab(s), Oral, BID, Refills(s) 0 Start Date: 04/07/24 Status: Ordered Start: 04-16-2022 diazePAM (RONNELL UM) 5 mg tablet For flying 0 04/16/2022 Active Comment on above: For flying hydrALAZINE hydrochloride 25 mg oral tablet (20 sources) Arteriolar Vasodilator Start: 4 take 1 tablet by mouth three times daily hydrALAZINE 25 mg Tab 25 mg = 1 tab(s), Oral, TID, Refills(s) 0 Start Date: 04/07/24 Status: Ordered Start: 01-29-2022 End: 11-28-2022 hydrALAZINE (APRESOLINE) 50 [...] mg oral tablet (20 sources) Thiazide Diuretic Start: 024 take 1 tablet by mouth once daily hydrochlorothiazide 25 mg Tab 25 mg = 1 tab(s), Oral, Daily, Refills(s) 0 Start Date: 04/07/24 Status: Ordered take 1 tablet by mouth once malka y hydrochlorothiazide 25 mg tablet Take 25 mg by mouth once daily. 0 Active Comment on above: Take 25 mg by mouth once daily. ibuprofen 400 mg oral tablet (1 source) Nonsteroidal Anti-inflammatory Drug Start: 04-07-2024 take 1 tablet by mouth three times daily ibuprofen 400 mg Tab 400 mg = 1 tab(s), Oral, TID, Refills(s) 0 Start Date: 04/07/24 Status: Ordered magnesium oxide 250 mg oral tablet (20 sources) Start: 04-07-2024 take 1 tablet by mouth once daily magnesium oxide 250 mg oral tablet 250 mg = 1 tab(s), Oral, Daily, Refills(s) 0 Start Date: 04/07/24 Status: Ordered End: 04-16-2023 Magnesium Oxide 250 mg magne sium tab Take 1 tablet by mouth. 0 04/16/2023 Discontinued Comment on above: [facility] omeprazole 20 mg delayed release oral capsule (20 sources) Proton Pump Inhibitor Start: 04-07-2024 take 1 capsule by mouth once daily omeprazole 20 mg Cap-DR 20 mg = 1 cap(s), Oral, Daily, Refills(s) 0 Start Date: 04/07/24 Status: Ordered Start: 05-02-2021 take [address] [facility] once daily omeprazole (PRILOSEC) 20 mg capsule Take 20 mg by mouth once daily. 0 05/02/2021 Active Comment on above: Take 20 mg by mouth once daily. perflutren lipid microspheres 1.3 mL in NaCl (PF) 0.9% 10 mL injection (DEFINITY) (18 sources) Start: 06-26-20 End: 09-25-20 perflutren lipid microspheres 1.3 mL in NaCl (PF) 0.9% 10 mL injection (DEFINITY) sildenafil 100 mg oral tablet (20 sources) Phosphodiesterase 5 Inhibitor Start: 04-07-20 take 1 tablet by mouth once daily as needed Viagra 100 mg Tab 100 mg = 1 tab(s), Oral, Daily, PRN erectile dysfunction, Refills(s) 0 Start Date: 04/07/24 Status: Ordered Start: 01-16-2022 sildenafil ( AGRA) 100 mg tablet TAKE HALF(1/2) OR ONE(1) TABLET BY MOUTH 30-60 MINUTES PRIOR TO SEXUAL ACTIVITY 0 01/16/2022 Active Comment on above: TAKE HALF(1/2) OR ON E(1) TABLET BY MOUTH 30-60 MINUTES PRIOR TO SEXUAL ACTIVITY 125 ml sodium chloride 9 mg/ml prefilled syringe (20 sources) Start: 05-14-20 End: 10-04-20 sodium chloride 0.9 %, flush, (BD POSIFLUSH) syringe Indications: Atrial fibrillation, persistent (HCC) Inject 2-10 mL intravenously as directed. For Echo procedure 10 mL 0 10/04/2022 10/04/2023 Active Comment on above: Inject 2-10 mL intra venously as directed. For Echo procedure verapamil hydrochloride 240 mg extended release oral tablet (20 sources) Calcium Channel Kirk Start: 04-07-20 take 1 tablet by mouth once daily in the morning verapamil 240 mg ER Tab 240 mg = 1 tab(s), Oral, qAM, Refills(s) 0 Start Date: 04/07/24 Status: Ordered take [address] [facility] once daily at bedtime Verapamil SR 240 mg 24 hr capsule Take 2 40 mg by mouth daily at bedtime. 0 Active Comment on above: Take 240 mg by mouth daily at bedtime. zolpidem tartrate 5 mg oral tablet (20 sources) gamma-Aminobutyric Acid-ergic Agonist Start: 04-07-2024 take 1 tablet by mouth once daily at bedtime zolpidem 5 mg Tab 5 mg = 1 tab(s), Oral, Once a day (at bedtime), Refills(s) 0 Start Date: 04/07/24 Status: Ordered take 5 mg by mouth once daily at bedtime zolpidem (AMBIEN) 10 mg Take 5 mg by mouth daily at bedtime. 0 Active Comment on above: Take 5 mg by mouth d aily at bedtime. Completed/Discontinued Medications Medication Drug Class(es) Dates Sig (Normalized) Sig (Original) apixaban 5 mg oral tablet (20 sources) Factor Xa Inhibitor Start: 01-05-2022 End: 10-04-2022 take 1 tablet by mouth twice daily ELIQUIS 5 mg tab(s) TAKE 1 TABLET BY MOUTH TWICE A DAY 60 tablet 11 01/05/2022 10/04/2022 Discontinued (Clinical Decision) Comment on above: TAKE 1 TABLET BY WOLFGANG TH TWICE A DAY cholecalciferol 0.125 mg oral tablet (20 sources) Vitamin D take 1 tablet by mouth once daily cholecalciferol (VITAMIN D3) 5,000 unit tab Take 5,000 Units by mouth once daily. 0 Active Comment on above: Take 5,000 Units by mouth once daily. glucosamine/chondr christiansen A sod (OSTEO BI-FLEX ORAL) (20 sources) glucosamine/shawanda dr christiansen A sod (OSTEO BI-FLEX ORAL) Take by mouth once daily. 0 Active Comment on above: Take by mouth once d aily. Magnesium (2 sources) Magnesium 250 mg tab Take 250 mg by mouth. 0 Active Comment on above: Take 250 mg by mouth . pantoprazole 20 mg delayed release oral tablet (15 sources) Proton Pump Inhibitor Start: 06-26-2022 End: 10-04-2022 take 1 tablet by mouth once daily, then take 6 tablets by mouth in the morning pantoprazole DR (PROTONIX) 20 mg tablet Take 1 tablet by mouth DAILY (6 AM). 30 tablet 2 06/26/2022 10/04/2022 Discontinued Comment on above: Take 1 tablet by wolfgang th DAILY (6 AM). Problems Active Problems Problem Classification Problem Date Documented Da te Episodic/Chronic Abdominal hernia (1 source) Hiatal hernia 04-07-2024 Episodic Acute cerebrovascular disease (20 sources) Occlusion of cerebral artery with stroke; Translations: [Cerebral infarction due to unspecified occlusion or stenosis of unspecified cerebral artery] Onset: 5 06-07-2014 Chronic Comment on above: Outside Source Comme nt: Overview: Right thalamic and right internal capsule hemorrhage on asa at the time., unsure of dose Cardiac dysrhythmias (20 sources) Paroxysmal atrial fibrillation; Translations: [Paroxysmal atrial fibrillation] Onset: 4 Chronic Disorders of lipid metabolism (3 sources) Hyperlipidemia; Translations: [Hypertriglyceridemia] 04-07-2024 Chronic Diverticulosis and diverticulitis (1 source) Diverticular disease of colon 04-07-2024 Chronic Esophageal disorders (1 source) Gastroesophageal reflux disease 04-07-2024 Chronic Essential hypertension (20 sources) Essential hypertension; Translations: [Essential (primary) hypertension] Onset: 4 Chronic Gout and other crystal arthropathies (1 source) Gout 04-07-2024 Chronic Late effects of cerebrovascular disease (20 sources) Sequela of cerebrovascular accident; Translations: [Hemiplegia and hemiparesis following cerebral infarction affecting unspecified side] Onset: 4 10-23-2021 Chronic Other and ill-defined cerebrovascular disease (1 source) Intracranial aneurysm 04-07-2024 Chronic Other gastrointestinal disorders (1 source) Abnormal feces; Translations: [Other fecal abnormalities] Onset: 4 Episodic Other gastrointestinal disorders (1 source) Occult blood in stools 04-07-2024 Episodic Other male genital disorders (1 source) Impotence 04-07-2024 Chronic Other nutritional; endocrine; and metabolic disorders (1 source) Body mass index 30+ - obesity 05-06-2024 Chronic Other nutritional; endocrine; and metabolic disorders (1 source) Obesity caused by energy imbalance 04-07-2024 Chronic Residual codes; unclassified (1 source) Obstructive sleep apnea syndrome 04-07-2024 Chronic Residual codes; unclassified (1 source) Insomnia 04-07-2024 Episodic Unclassified (1 source) Other persistent atrial fibrillation; Translations: [Persistent atrial fibrillation (HCC)] Onset: 2 Past or Other Problems Problem Classification Problem Date Documented Da te Episodic/Chronic Residual codes; unclassified (1 source) Chronic pain Onset: 04-10-2023 04-07-2024 Episodic Results Test Name Value Interpretation Reference Range Facility Ambulatory Visit Summaryon 0 05-06-2024 Ambulatory Visit Summary Ambulatory Visit Summary MILTON FRIEND :1960 Visit Date:05/06/2024 Ambulatory Visit Instructions Your Diagnosis Positive occult stool blood test Your Care Team Attending Physician - DYLAN HUSSEIN, Dara Cosme Primary Care Physician - Abril Yeboah MD Referring Physician - Abril Yeboah MD This Is Your Medications List Contact prescribing physician if questions or concerns allopurinol (allopurinol 100 mg Tab) ascorbic acid/chondroitin/glucos a/drew (Glucosamine Chondroitin) aspirin (aspirin 81 mg Chew Tab) atenolol (atenolol 50 mg Tab) diazepam (diazepam 5 mg Tab) hydrALAZINE (hydrALAZINE 25 mg Tab) hydrochlorothiazide (hydrochlorothiazide 25 mg Tab) ibuprofen (ibuprofen 400 mg Tab) magnesium oxide (magnesium oxide 250 mg oral tablet) omeprazole (omeprazole 20 mg Cap-DR) sildenafil (Viagra 100 mg Tab) verapamil (verapamil 240 mg ER Tab) zolpidem (zolpidem 5 mg Tab) Procedures Performed Cardiac radiofrequency ablation using ultrasound guidance (05/2022), Watchman (05/2022), Colonoscopy (03/14/2016), Resection of clavicle, Rotator cuff repair, Rotator cuff repair, Vasectomy. Discharge Vitals Heart Rate (Peripheral) 72 Respiratory Rate 16 Blood Pressure 138/94 Height 167.6 cm Height 66 in Weight 94.4 kg Weight 207.68 lb BMI 33.61 Medications What How Much When Instructions Unchanged allopurinol (allopurinol 100 mg Tab) 1 Tablets By Mouth Every day Contact prescribing physician if questions or concerns Unchanged ascorbic acid/ chondroitin/ glucosa/ drew (Glucosamine Chondroitin) Contact prescribing physician if questions or concerns Unchanged aspirin (aspirin 81 mg Chew Tab) 1 Tablets Chewed Every day Contact prescribing physician if questions or concerns Unchanged atenolol (atenolol 50 mg Tab) 2 Tablets By Mouth Every day Contact prescribing physician if questions or concerns Unchanged diazepam (diazepam 5 mg Tab) 1 Tablets By Mouth 2 times a day Contact prescribing physician if questions or concerns Unchanged hydrALAZINE (hydrALAZINE 25 mg Tab) 1 Tablets By Mouth 3 times a day Contact prescribing physician if questions or concerns Unchanged hydrochlorothiazide (hydrochlorothiazide 25 mg Tab) 1 Tablets By Mouth Every day Contact prescribing physician if questions or concerns Unchanged ibuprofen (ibuprofen 400 mg Tab) 1 Tablets By Mouth 3 times a day Contact prescribing physician if questions or concerns Unchanged magnesium oxide (magnesium oxide 250 mg oral tablet) 1 Tablets By Mouth Every day Contact prescribing physician if questions or concerns Unchanged omeprazole (omeprazole 20 mg Cap-DR) 1 Capsules By Mouth Every day Contact prescribing physician if questions or concerns Unchanged sildenafil (Viagra 100 mg Tab) 1 Tablets By Mouth Every day as needed for erectile dysfunction Contact prescribing physician if questions or concerns Unchanged verapamil (verapamil 240 mg ER Tab) 1 Tablets By Mouth Once a day (in the morning) Contact prescribing physician if questions or concerns Unchanged zolpidem (zolpidem 5 mg Tab) 1 Tablets By Mouth Once a day (at bedtime) Contact prescribing physician if questions or concerns Allergies Cipro (Joint pain) lisinopril (Edema of the tongue) Problems Ongoing - Any problem that you are currently receiving treatment for. Atrial fibrillation BMI 33.0-33.9,adult Cerebrovascular accident with intracranial hemorrhage Chronic pain Diverticular disease of colon Erectile dysfunction Essential hypertension Gastroesophageal reflux disease Gout Hemiplegia of nondominant side as late effect of cerebrovascular disease Hiatal hernia Hyperlipidemia Hypertriglyceridemia Insomnia Intracranial aneurysm Mixed hyperlipidemia Obesity due to excess calories Obstructive sleep apnea syndrome Positive occult stool blood test Patient Survey You may receive a survey via text or e-mail asking about your office visit. Please share your experience with us by completing your survey. We appreciate your feedback and thank you for choosing us for your care. [facility] Physician Referralon 024 Physician Referral [phone] [id number] IFF [facility] CNPNon 04-26-2023 CNPN Telephone (CARDMN) MILTON FRIEND ([id number]) 1960 M Date Time Provider Department 04/26/23 ODESSA TERRY During your visit today, we recorded the following information about you: Karla Rausch 04/26/2023 11:26 AM Signed April 26, 2023 Patient Contact Number: [phone] (home) [phone] (cell) Patient last seen within the last [...] Fully Assessed Reason for Visit: Patient Question [1477] Cmt: Asprin Prescriptions as of 04/29/2023 - [...] Status:Closed by JOY GREENWOOD RN on 04/29/23 [facility] Ramiro 04-16-2023 CNOV Office Visit (CARDMN ) MILTON FRIEND ([id number]) 1960 Date Time Provider Department 04/16/23 10:30 AM ODESSA TERRY CARDKADY During your visit today, we recorded the following information about you: Pulse Blood pressure Weight Height 79/minute 129/83 97.5 kg 1.689 m Odessa Terry MD 04/16/2023 10:53 AM Addendum [facility] [place] [facility] Department of Cardiovascular Medicine SECTION OF CARDIAC PACING and ELECTROPHYSIOLOGY OUTPATIENT VISIT DATE April 16, 2023 OUTPATIENT VISIT TYPE ESTABLISHED PRIMARY CARE PHYSICIAN: Abril Yeboah [address] [place] [id number] CHIEF COMPLAINT: AF HISTORY OF PRESENT ILLNESS/NURSING INTAKE HISTORY: Mr. Friend is a 63 year old male who presents today for follow-up visit s/p concomitant Watchman + PVI on 06/26/22. He history of recurrent, persistent symptomatic atrial fibrillation. Watchman indication was prior intracranial hemorrhage. He has a [id number] score of 3 for hypertension and prior [...] For E (more content not included)... [facility] Office Visit (CAFLMN ) MILTON FRIEND ([id number]) 1960 M Date Time Provider Department 04/16/23 6:45 AM TRANSESOPHAGEAL ECHO CARD MAINCAFLMN During your visit today, we recorded the following information about you: Temperature Pulse Respiration Blood pressure 98.1 degrees 74/minute 14/minute 120/80 Jori Lopez, RN 04/16/2023 10:23 AM Signed AMBULATORY PATIENT [...] ODESSA TERRY [[id number]] Allergies As of Date: 04/16/2023 Noted Allergy [...] Status:Closed by ROBYN SMILEY on 04/16/23 [facility] ECG COMPLETEon 04-16-2023 ECG COMPLETE Ventricular Rate : 7 9 BPM QRS Duration : 102 ms Q-T Interval : 410 ms QTC Calculation(Bazett) : 470 ms Calculated R [place] : -24 degrees Calculated T [place] : -22 degrees ATRIAL FIBRILLATION INCOMPLETE RIGHT BUNDLE BRANCH BLOCK INFERIOR MYOCARDIAL INFARCTION , AGE UNDETERMINED ABNORMAL ECG Confirmed by MD DEWEY, PhD, GERMÁN ([id number]) on 04/20/2023 4:35:06 PM NAME : MILTON FRIEND PID : [id number] : 1960 Gender : Male Race : ORD : [id number] Procedure Date : Apr 16 2023 09:57:16 Edit Date : Apr 20 2023 16:35:12 Diagnosis: ATRIAL FIBRILLATION INCOMPLETE RIGHT BUNDLE BRANCH BLOCK INFERIOR MYOCARDIAL INFARCTION , AGE UNDETERMINED ABNORMAL ECG Confirmed by MD DEWEY, PhD, GERMÁN ([id number]) on 04/20/2023 4:35:06 PM Test Reason : Location : 314 : J14 J1-4 Overread By : MD DEWEY, PhD,GERMÁN Edited By : MD DEWEY, PhD,GERMÁN Referred By : ODESSA TERRY Acquired by : TIA WARREN [facility] ECHO TRANSESOPHAGEALon 04-16 ECHO TRANSESOPHAGEAL Echocardiography Report: Transesophageal Echo [facility] J1-5 Date of service: 04/16/2023 7:43:42 AM PERFORMER Ordering physician: ODESSA TERRY Indication: Watchman Assessment [...] * * * Final * * * [employer] : [id number] [id number] Normal [facility] NURSING PROGon 04-16-2023 NURSING PROG HNO ID: [id number] Author: Jori Lopez RN Service: ? Author [...] Jori Lopez RN In Department: CARDIOLOGY Normal [facility] 04-15-2023 CNPN Telephone ([facility]) MILTON FRIEND ([id number]) 1960 M Date Time Provider Department 04/15/23 [...] Fully Assessed Reason for Visit: Reminder Call [[id number]] Cmt: Transesophageal Echo 04/16/23 Prescriptions as of [...] Status:Closed by ROBYN SMILEY on 04/15/23 Normal [facility] ALAN by IFAon 05-17-2023 Antinuclear Antibodies, IFA Positive Abnormal [facility] Comment on above: Result Comment: Nega tive <1:80 Borderline 1:80 Positive >1:80 Performed By: #### A NAIFA #### [facility] [address] [address] [address] Hortencia Conley ANTISTREPTOLYSIN O AB (ASO)o n 03-13-2023 Antistreptolysin O Ab 23.5 IU/mL Normal 0.0-200.0 [facility] Comment on above: Performed By: #### A SOAB #### [facility] [address] [place] [address] Dr. Hortencia Conley INSULINon 03-13-2023 Insulin 12.6 uIU/mL Normal 2.6-24.9 [facility] Comment on above: Performed By: #### C RP #### [facility] [address] [place] [address] Dr. Hortencia Conley RHEUMATOID FACTORon 03-13-20 RA Latex Turbid. <10.0 Normal <14.0 [facility] Comment on above: Performed By: #### R F #### [facility] [address] [place] [address] Dr. Hortencia Conley TESTOSTERONE, TOTALon 2022 Testosterone [Mass/Vol] 394 ng/dL Normal 264-916 [facility] Comment on above: Result Comment: Adul t male reference interval is based on a population of healthy nonobese males (BMI <30) between 19 and 39 years old. Shabnam et.al. JCEM 2017,102;5132-2650. PMID: [id number]. Performed By: #### T ESTTOT #### [facility] [address] [place] [address] Dr. Hortencia Conley CBC AUTO DIFFon 03-12-2023 BASO # 0.1 103/ul Normal 0.0-0.1 [facility] Comment on above: Performed By: #### C RP #### [facility] [address] [place] [address] Dr. Hortencia Conley Basophils/100 WBC (Bld) 0.9 % Normal 0.2-2.0 [facility] Comment on above: Performed By: #### C RP #### [facility] [address] [address] [address] Hortencia Conley EO # 0.3 103/ul Normal 0.0-0.7 [facility] Comment on above: Performed By: #### C RP #### [facility] [address] [address] [address] Hortencia Conley Eosinophils/100 WBC (Bld) 3.6 % Normal 0.9-7.0 [facility] Comment on above: Performed By: #### C RP #### [facility] [address] [address] [address] Hortencia Conley Erythrocyte distribution width (RBC) [Ratio] 12.9 % Normal 11.0-15.0 [facility] Comment on above: Performed By: #### C RP #### [facility] [address] [place] [address] Dr. Hortencia Conley Hematocrit (Bld) [Volume fraction] 45.6 % Normal 42.0-54.0 [facility] Comment on above: Performed By: #### C RP #### [facility] [address] [place] [address] Dr. Hortencia Conley Hemoglobin (Bld) [Mass/Vol] 15.9 g/dL Normal 14.0-18.0 [facility] Comment on above: Performed By: #### C RP #### [facility] [address] [address] [address] Hortencia Conley IG # 0.05 10e3/ul Critically high 0.00-0.03 [facility] Comment on above: Performed By: #### C RP #### [facility] [address] [address] [address] Hortencia Conley IG % 0.7 % Critically high 0.0-0.5 [facility] Comment on above: Performed By: #### C RP #### [facility] [address] [address] [address] Hortencia Conley LYMPH # 2.0 103/ul Normal 1.2-3.8 [facility] Comment on above: Performed By: #### C RP #### [facility] [address] [place] [address] Dr. Hortencia Conley Lymphocytes/100 WBC (Bld) 29.0 % Normal 20.5-60.0 [facility] Comment on above: Performed By: #### C RP #### [facility] [facility] [address] [place] [address] Dr. Hortencia Conley MANUAL DIFF REQ NO Normal [facility] Comment on above: Performed By: #### C RP #### [facility] [address] [place] [address] Dr. Hortencia Conley MCH (RBC) [Entitic mass] 29.6 pg Normal 25.9-34.0 [facility] Comment on above: Performed By: #### C RP #### [facility] [address] [place] [address] Dr. Hortencia Conley MCHC (RBC) [Mass/Vol] 34.9 g/dL Normal 29.9-35.2 [facility] Comment on above: Performed By: #### C RP #### [facility] [address] [place] [address] Dr. Hortencia Conley MCV (RBC) [Entitic vol] 84.8 fL Normal 80.0-94.0 [facility] Comment on above: Performed By: #### C RP #### [facility] [address] [place] [address] Dr. Hortencia Conley MONO # 0.6 103/ul Normal 0.3-0.8 [facility] Comment on above: Performed By: #### C RP #### [facility] [address] [place] [address] Dr. Hortencia Conley Monocytes/100 WBC (Bld) 8.8 % Normal 1.7-12.0 [facility] Comment on above: Performed By: #### C RP #### [facility] [address] [place] [address] Dr. Hortencia Conley NEUT # 4.0 103/ul Normal 1.4-6.5 [facility] Comment on above: Performed By: #### C RP #### [facility] [address] [address] [address] Hortencia Conley Neutrophils/100 WBC (Bld) 57.0 % Normal 43.0-75.0 [facility] Comment on above: Performed By: #### C RP #### [facility] [address] [address] [address] Hortencia Conley Platelet mean volume (Bld) [Entitic vol] 10.1 fL Normal 9.5-13.5 [facility] Comment on above: Performed By: #### C RP #### [facility] [address] [place] [address] Dr. Hortencia Conley PLT 241 103/ul Normal 150-450 [facility] Comment on above: Performed By: #### C RP #### [facility] [address] [place] [address] Dr. Hortencia Conley RBC 5.38 106/ul Normal 4.70-6.10 [facility] Comment on above: Performed By: #### C RP #### [facility] [address] [place] [address] Dr. Hortencia Conley WBC 7.0 103/ul Normal 4.0-11.0 [facility] Comment on above: Performed By: #### C RP #### [facility] [address] [place] [address] Dr. Hortencia Conley CRPon 03-12-2023 CRP [Mass/Vol] mg/L Normal <=1.0 [facility] Comment on above: Performed By: #### C RP #### [facility] [address] [place] [address] Dr. Hortencia Conley FREE T3on 03-12-2023 FREE T3 3.28 pg/mlL Normal 2.18-3.98 [facility] Comment on above: Performed By: #### T 4, FT3, TSH, CMP, URIC, LIPID #### [facility] [address] [place] [address] Dr. Hortencia Conley GLYCOHEMOGLOBIN A1Con 2022 ADA RECOMMENDATION SEE BELOW Normal [facility] Comment on above: Result Comment: ADA RECOMMENDED LIMIT 4.0 - 6.0 ADA THERAPEUTIC TARGET < 7.0 ACTION SUGGESTED > 7.0 Performed By: #### A 1C #### [facility] [address] [address] [address] Hortencia Conley Glucose [Mass/Vol] 108 mg/dL Normal [facility] Comment on above: Performed By: #### A 1C #### [facility] [address] [address] [address] Hortencia Conley HbA1c (Bld) [Mass fraction] 5.4 % Normal 4.5-6.2 [facility] Comment on above: Performed By: #### A 1C #### [facility] [address] [address] [address] Hortencia Conley LIPID PROFILEon 03-12-2023 CHOL-HDL RATIO NORM SEE BELOW Normal [facility] Comment on above: Result Comment: 3.3 - 4.4 LOW RISK 4.4 - 7.1 AVERAGE RISK 7.1 - 11.0 MODERATE RISK >11.0 HIGH RISK Performed By: #### T 4, FT3, TSH, CMP, URIC, LIPID #### [facility] [address] [address] [address] Hortencia Conley Cholesterol [Mass/Vol] 200 mg/dL Normal <=200 [facility] Comment on above: Performed By: #### T 4, FT3, TSH, CMP, URIC, LIPID #### [facility] [address] [address] [address] Hortencia Conley Cholesterol in HDL [Mass/Vol] 57 mg/dL Normal 40-60 [facility] Comment on above: Performed By: #### T 4, FT3, TSH, CMP, URIC, LIPID #### [facility] [address] [address] [address] Hortencia Conley Cholesterol in LDL [Mass/Vol] 121.2 mg/dL Normal [facility] Comment on above: Performed By: #### T 4, FT3, TSH, CMP, URIC, LIPID #### [facility] [address] [address] [address] Hortencia Conley Cholesterol.total/Cho lesterol in HDL [Mass ratio] 3.5 {ratio} Normal [facility] Comment on above: Performed By: #### T 4, FT3, TSH, CMP, URIC, LIPID #### [facility] [address] [address] [address] Hortencia Conley HDL NORMAL > or = 60 mg/dl - LO W CARDIOVASCULAR RISK <40 mg/dl - HIGH CARDIOVASCULAR RISK Normal [facility] Comment on above: Performed By: #### T 4, FT3, TSH, CMP, URIC, LIPID #### [facility] [address] [address] [address] Hortencia Conley LDL CALC NORMAL SEE BELOW Normal [facility] Comment on above: Result Comment: <100 mg/dl OPTIMAL 100 - 129 mg/dl NEAR OR ABOVE OPTIMAL 130 - 159 mg/dl BORDERLINE HIGH 160 - 189 mg/dl HIGH >190 mg/dl VERY HIGH Performed By: #### T 4, FT3, TSH, CMP, URIC, LIPID #### [facility] [address] [address] [address] Hortencia Conley Triglyceride [Mass/Vol] 109 mg/dL Normal <=150 [facility] Comment on above: Performed By: #### T 4, FT3, TSH, CMP, URIC, LIPID #### [facility] [address] [address] [address] Hortencia Conley VLDL CALC 21.8 mg/dL Normal [facility] Comment on above: Performed By: #### T 4, FT3, TSH, CMP, URIC, LIPID #### [facility] [address] [address] [address] Hortencia Conley PROF 14(COMP METB)on 023 Albumin [Mass/Vol] 4.0 g/dL Normal 3.4-5.0 [facility] Comment on above: Performed By: #### C RP #### [facility] [address] [place] [address] Dr. Hortencia Conley Albumin/Globulin [Mass ratio] 1.1 {ratio} Normal [facility] Comment on above: Performed By: #### C RP #### [facility] [address] [address] [address] Hortencia Conley ALP [Catalytic activity/Vol] 75 U/L Normal 46-116 [facility] Comment on above: Performed By: #### C RP #### [facility] [address] [place] [address] Dr. Hortencia Conley ALT [Catalytic activity/Vol] 46 U/L Normal 16-63 [facility] Comment on above: Performed By: #### C RP #### [facility] [address] [place] [address] Dr. Hortencia Conley Anion gap [Moles/Vol] 16.0 mmol/L Normal [facility] Comment on above: Performed By: #### C RP #### [facility] [address] [place] [address] Dr. Hortencia Conley AST [Catalytic activity/Vol] 30 U/L Normal 15-37 [facility] Comment on above: Performed By: #### C RP #### [facility] [address] [place] [address] Dr. Hortencia Conley Bilirubin [Mass/Vol] 0.4 mg/dL Normal 0.2-1.0 [facility] Comment on above: Performed By: #### C RP #### [facility] [address] [place] [address] Dr. Hortencia Conley Calcium [Mass/Vol] 9.1 mg/dL Normal 8.5-10.1 [facility] Comment on above: Performed By: #### C RP #### [facility] [address] [place] [address] Dr. Hortencia Conley Chloride [Moles/Vol] 105 mmol/L Normal 98-107 [facility] Comment on above: Performed By: #### C RP #### [facility] [address] [place] [address] Dr. Hortencia Conley CO2 [Moles/Vol] 27.8 mmol/L Normal 21.0-32.0 [facility] Comment on above: Performed By: #### C RP #### [facility] [address] [place] [address] Dr. Hortencia Conley Creatinine [Mass/Vol] 0.81 mg/dL Normal 0.70-1.30 [facility] Comment on above: Performed By: #### C RP #### [facility] [address] [place] [address] Dr. Hortencia Conley EGFR-AF ENGLISH >60 Normal >=60 [facility] Comment on above: Performed By: #### C RP #### [facility] [address] [address] [address] Hortencia Conley EGFR-NON AF ENGLISH >60 Normal >=60 [facility] Comment on above: Performed By: #### C RP #### [facility] [address] [place] [address] Dr. Hortencia Conley Globulin (S) [Mass/Vol] 3.5 g/dL Normal [facility] Comment on above: Performed By: #### C RP #### [facility] [address] [place] [address] Dr. Hortencia Conley Glucose [Mass/Vol] 92 mg/dL Normal 74-106 [facility] Comment on above: Performed By: #### C RP #### [facility] [address] [place] [address] Dr. Hortencia Conley Potassium [Moles/Vol] 3.8 mmol/L Normal 3.5-5.1 [facility] Comment on above: Performed By: #### C RP #### [facility] [address] [place] [address] Dr. Hortencia Conley Protein [Mass/Vol] 7.5 g/dL Normal 6.4-8.2 [facility] Comment on above: Performed By: #### C RP #### [facility] [address] [place] [address] Dr. Hortencia Conley Sodium [Moles/Vol] 145 mmol/L Normal 136-145 [facility] Comment on above: Performed By: #### C RP #### [facility] [address] [place] [address] Dr. Hortencia Conley Urea nitrogen [Mass/Vol] 13.0 mg/dL Normal 7.0-18.0 [facility] Comment on above: Performed By: #### C RP #### [facility] [address] [place] [address] Dr. Hortencia Conley Urea nitrogen/Creatinine [Mass ratio] 16.0 mg/mg Normal [facility] Comment on above: Performed By: #### C RP #### [facility] [address] [address] [address] Hortencia Conley T4on 03-12-2023 T4 [Mass/Vol] 11.40 ug/dL Normal 4.50-12.10 [facility] Comment on above: Performed By: #### T 4, FT3, TSH, CMP, URIC, LIPID #### [facility] [address] [place] [address] Dr. Hortencia Conley TSHon 03-12-2023 TSH 1.726 uIU/mL Normal 0.358-3.740 [facility] Comment on above: Performed By: #### C RP #### [facility] [address] [place] [address] Dr. Hortencia Conley URIC ACID SERUMon 03-12-2023 Urate [Mass/Vol] 7.5 mg/dL Critically high 3.5-7.2 [facility] Comment on above: Performed By: #### C RP #### [facility] [address] [place] [address] Dr. Hortencia [facility] MILTON FRIEND ([id number]) 1960 Date Time Provider Department 02/20/23 ODESSA TERRY During your visit today, we recorded the following information about you: Joy Greenwood RN 02/20/2023 4:39 PM Signed Returned call to patient. No answer. Information re: his Watchman device sent to patient via [employer] message. Joy Greenwood RN Allergies As of Date: 02/20/2023 Noted Allergy Reaction BRYNN INHIBITORS 10/05/2021 7 - Swelling AMINO ACIDS 01/05/2022 14 - Other: See Comments CIPROFLOXACIN 01/05/2022 14 - Other: See Comments LOBSTER (CRUSTACEANS) 11/23/2013 16 - Unknown Date Reviewed: 10/04/2022 Reviewed by: Andry Peterson RN - Fully Assessed Reason for Visit: Patient Question [8597] Prescriptions as of 02/20/2023 - hydrALAZINE (APRESOLINE) [...] Status:Closed by JOY GREENWOOD RN on 02/20/23 [facility] Telephone (CARDMN) MILTON FRIEND ([id number]) 1960 M Date Time Provider Department 02/20/23 ODESSA TERRY CARDMN During your visit today, we recorded the following information about you: Kyra Clements 02/20/2023 12:32 PM Signed Scheduling just called for patient. Kyra Clements Allergies As of Date: 02/20/2023 Noted Allergy Reaction BRYNN INHIBITORS 10/05/2021 7 - Swelling AMINO ACIDS 01/05/2022 14 - Other: See Comments CIPROFLOXACIN 01/05/2022 14 - Other: See Comments LOBSTER (CRUSTACEANS) 11/23/2013 16 - Unknown Date Reviewed: 10/04/2022 Reviewed by: Andry Peterson RN - Fully Assessed Reason for Visit: Patient Question [1872] Cmt: Patient left a on Device Clinic line, want to know the model number of the Watchman that was implanted in the fall. Please call the patient at [phone] Prescriptions as of 02/20/2023 - hydrALAZINE (APRESOLINE) [...] Encounter Status:Closed by KYRA CLEMENTS on 02/20/23 [facility] JENNYOVcarrie 10-04-2022 [facility] Office Visit (CARDMN ) MILTON FRIEND ([id number]) 1960 M Date Time Provider Department 10/04/22 12:15 PM ODESSA TERRY During your visit today, we recorded the following information about you: Pulse Blood pressure Weight Height 54/minute 141/85 95.7 kg 1.689 m Odessa Terry MD 10/05/2022 3:08 PM Signed [facility] Department of Cardiovascular Medicine SECTION OF CARDIAC PACING and ELECTROPHYSIOLOGY OUTPATIENT VISIT DATE October 04, 2022 OUTPATIENT VISIT TYPE ESTABLISHED PRIMARY CARE PHYSICIAN: Abril Yeboah MD [address] [place] [address] CHIEF COMPLAINT: AF Watchman in place HISTORY OF PRESENT ILLNESS/NURSING INTAKE: Mr. Friend is a 62 year old male who presents today for follow-up visit after concomitant Watchman + PVI on 06/26/22. He has a history of recurrent, persistent symptomatic atrial fibrillation. Watchman indication was prior intracranial hemorrhage. He has a [id number] score of 3 for hypertension and prior [...] No Known Problems Sister ALLERGIES Allergen Reactions Byrnn Inhibitors Swelling Amino Acids Other: See Comments [...] No wheezin (more content not included)... Normal [facility] Office Visit (CAFLMN ) MILTON FRIEND ([id number]) 1960 M Date Time Provider Department 10/04/22 9:15 AM TRANSESOPHAGEAL ECHO CARD MAINCAFLMN During your visit today, we recorded the following information about you: Temperature Pulse Respiration Blood pressure 97 degrees 60/minute 18/minute 130/81 Chelly aYp RN 10/25/2022 8:45 AM Signed AMBULATORY PATIENT [...] Diagnosis:Persistent atrial fibrillation (HCC) [I48.19] Order(s):ECHO TRANSESOPHAGEAL [[id number]] Order #: [id number]. #:[id number] : 1 [] lidocaine viscous 2 % [...] Status:Closed by PRESTON GARCIA on 10/25/22 Normal [facility] [id number] 10-04-2022 ECG01 Ventricular Rate : 6 5 BPM Atrial Rate : 65 BPM P-R Interval : 180 ms QRS Duration : 116 ms Q-T Interval : 408 ms QTC Calculation(Bazett) : 424 ms Calculated P [place] : 19 degrees Calculated R [place] : -17 degrees Calculated T [place] : -10 degrees NORMAL SINUS RHYTHM INCOMPLETE RIGHT BUNDLE BRANCH BLOCK BORDERLINE ECG Confirmed by FARHAD DE LUNA MD ([id number]) on 10/07/2022 10:46:53 AM NAME : MILTON FRIEND PID : [id number] : 1960 Gender : Male Race : ORD : Procedure Date : Oct 04 2022 09:06:31 Edit Date : Oct 07 2022 10:46:54 Diagnosis: NORMAL SINUS RHYTHM INCOMPLETE RIGHT BUNDLE BRANCH BLOCK BORDERLINE ECG Confirmed by FARHAD DE LUNA MD ([id number]) on 10/07/2022 10:46:53 AM Test Reason : Location : [facility] : [facility]- Overread By : FARHAD DE LUNA MD Edited By : FARHAD DE LUNA MD Referred By : ODESSA TERRY Acquired by : HAILEYJAIDEN Normal [facility] ECHO TRANSESOPHAGEALon 10-04 ECHO TRANSESOPHAGEAL Echocardiography Report: Transesophageal Echo [facility] J1-5 Date of service: 10/04/2022 10:17:10 AM PERFORMER Ordering physician: POLLY ALVAREZ Indication: Post Watchmann [...] The tricuspid valve leaflets are structurally normal. [place] tricuspid valve. There is no tricuspid valve [...] * * Final (Updated) * * * [employer] Image : [id number] ISUID Normal [facility] Ade 10-03-2022 CNPN Telephone (LOUISEJoe) MILTON FRIEND ([id number]) 1960 M Date Time Provider Department 10/03/22 LEANN LEWIS During your visit today, we recorded the following information about you: Leann Lewis RN 10/03/2022 10:32 AM Signed ECHO [...] Fully Assessed Reason for Visit: Reminder Call [3830] Cmt: jose Prescriptions as of 10/03/2022 - [...] Status:Closed by LEANN LEWIS on 10/03/22 Normal [facility] ARRHYTHMIA TRANS TELE MEASUR Romain 09-27-2022 Measure ND Interval [address] [facility] MEASURE QRS Interval 60 [facility] MEASURE QT Interval [address] [facility] MEASURE RR INTERVAL MAX 65.57 [facility] Symptoms routine [facility] ARRHYTHMIA TRANS TELE MEASUR Romain 09-06-2022 Measure ND Interval 130 [facility] MEASURE QRS Interval 90 [facility] MEASURE QT Interval 402 [facility] MEASURE RR INTERVAL MAX 60 [facility] Symptoms Routine [facility] ARRHYTHMIA TRANS TELE MEASUR Romain 08-30-2022 Measure ND Interval 183 [facility] MEASURE QRS Interval 116 [facility] MEASURE QT Interval 399 [facility] MEASURE RR INTERVAL MAX 68.15 [facility] Symptoms Routine [facility] ARRHYTHMIA TRANS TELE MEASUR Romain 08-20-2022 Measure ND Interval 77 [facility] MEASURE QRS Interval 60 [facility] MEASURE QT Interval 450 [facility] MEASURE RR INTERVAL MAX 60.47 [facility] Symptoms routine [facility] ARRHYTHMIA TRANS TELE MEASUR Romain 08-10-2022 Measure ND Interval 211 [facility] MEASURE QRS Interval 60 [facility] MEASURE QT Interval 402 [facility] MEASURE RR INTERVAL MAX 59.87 [facility] Symptoms Routine [facility] ARRHYTHMIA TRANS TELE MEASUR Romain 08-03-2022 Measure ND Interval 156 [facility] MEASURE QRS Interval 88 [facility] MEASURE QT Interval 458 [facility] MEASURE RR INTERVAL MAX 70.95 [facility] Symptoms Routine [facility] ARRHYTHMIA TRANS TELE MEASUR Romain 07-20-2022 Measure ND Interval 163 [facility] MEASURE QRS Interval 60 [facility] MEASURE QT Interval 382 [facility] MEASURE RR INTERVAL MAX 64.96 [facility] Symptoms routine [facility] ARRHYTHMIA TRANS TELE MEASUR Romain 07-11-2022 Measure ND Interval 130 [facility] MEASURE QRS Interval 60 [facility] MEASURE QT Interval 392 [facility] MEASURE RR INTERVAL MAX 64.04 [facility] Symptoms routine [facility] CNPNon 06-26-2022 CNPN Telephone (PODCCP) MILTON FRIEND ([id number]) 1960 Date Time Provider Department 06/26/22 LEENA HARRINGTON [...] Reason for Visit: Follow Up Phone Call [1420] Cmt: Relate care discharge follow [id number]-ekqigghot-tva clear Prescriptions as of 06/26/2022 - pantoprazole [...] Encounter Status:Closed by LEENA HARRINGTON on 06/26/22 [facility] ANES POSTPROC EVALon 022 ANES POSTPROC EVAL HNO ID: [id number] Author: Jose F Khalil MD Service: ? Author Type: Anesthesiologist Type: Anesthesia Postprocedure Evaluation Filed: 06/25/2022 5:17 PM Note Text: POST ANESTHESIA EVALUATION NOTE : 1960 Procedure Summary Date: 06/25/22 Room / Location: [address] EP [facility] Anesthesia Start: 731 Anesthesia Stop: 1231 Procedures: COMPLETE EPS W/PVI [...] June 25, 2022 TIME: 5:17 PM CSN: [id number] Normal [facility] ANES PRE-OPon 06-25-2022 ANES PRE-OP HNO ID: [id number] Author: Jose F Khalil MD Service: ? Author Type: Anesthesiologist Type: Anesthesia Preprocedure Evaluation Filed: 06/25/2022 9:23 AM Note Text: ANESTHESIOLOGY DAY OF SURGERY NOTE : 1960 Procedure Information Anesthesia Start Date/Time: 06/25/22 0732 Procedures: COMPLETE EPS W/PVI ABL W/WO 3D MAP ICE PERC TRANSCATH CLOSURE LEFT ATRIAL APPENDAGE W/IMPLANT,INCLUSIVE OF FLUORO,TRANSEPTAL PUNCTURE,CATH PLACEMENT(S) ANGIO,WHEN PERFORMED,RAD ZACK Location: [address] EP [facility] Surgeons: Odessa Terry MD Estimated body [...] and consent discussed: yes. Patient / Responsible Constitution Party agrees to proceed: yes Patient / Surrogate [...] June 25, 2022 TIME: 9:23 AM CSN: [id number] Normal [facility] 06-25-2022 DS HNO ID: [id number] Author: Odessa Terry MD Service: Cardiovascular Medicine [...] OF CARE: (more content not included)... Normal [facility] ECG COMPLETEon 06-25-2022 ECG COMPLETE Ventricular Rate : 7 2 BPM Atrial Rate : 72 BPM P-R Interval : 150 ms QRS Duration : 94 ms Q-T Interval : 378 ms QTC Calculation(Bazett) : 413 ms Calculated P Berkeley : 43 degrees Calculated R [place] : -24 degrees NORMAL SINUS RHYTHM NORMAL ECG Confirmed by MICHAEL HUSSEIN, KATIE ([id number]) on 07/10/2022 7:49:52 AM NAME : MILTON FRIEND PID : [id number] : 1960 Gender : Male Race : ORD : [id number] Procedure Date : Jun 25 2022 17:02:44 Edit Date : Jul 10 2022 07:49:53 Diagnosis: NORMAL SINUS RHYTHM NORMAL ECG Confirmed by KATIE RODRIGUEZ MD ([id number]) on 07/10/2022 7:49:52 AM Test Reason : Post-OP Location : 340 : [id number] [id number] Overread By : KATIE RODRIGUEZ MD Edited By : KATIE RODRIGUEZ MD Referred By : , Acquired by : [id number], Normal [facility] INTRAPROCEDURAL ECHOon 06-25 INTRAPROCEDURAL ECHO Echocardiography Report: Procedural Echo Exam [facility] Date of service: 06/25/2022 8:02:33 AM PERFORMER Indication: Percutaneous noncoronary guidance Technologist: fellow Fellow: [...] for procedural guidance. - The following is livestock sales representative of measurements of DIANE dimensions [...] * * Final * * * CC [employer] Image : [id number] SUID Normal [facility] Basic metabolic 2000 panelon 06-22-2022 Anion gap [Moles/Vol] 13 mmol/L Normal 9-18 [facility] Comment on above: Order Comment: Speci men Type: BLOOD SPECIMENOrdering Facility: [facility] Address: [address] [place] [address] Performed By: #### 2 4321-2 ####[facility] LABCLIA [id number] [facility] [id number], [place] [facility] [place] Calcium [Mass/Vol] 9.4 mg/dL Normal 8.5-10.2 [facility] Comment on above: Order Comment: Speci men Type: BLOOD SPECIMENOrdering Facility: [facility] Address: [address] [place], [place] [id number] Performed By: #### 2 4321-2 ####[facility] LABCLIA [id number] [place] [address] [place] Chloride [Moles/Vol] 105 mmol/L Normal 97-[address] [facility] Comment on above: Order Comment: Speci men Type: BLOOD SPECIMENOrdering Facility: [facility] Address: [address] [place] [address] Performed By: #### 2 4321-2 ####[facility] LABCLIA [id number] [place] [address] [place] CO2 [Moles/Vol] 25 mmol/L Normal 22-30 [facility] Comment on above: Order Comment: Speci men Type: BLOOD SPECIMENOrdering Facility: [facility] Address: [address] [place], [place] [address] Performed By: #### 2 4321-2 ####[facility] LABCLIA [id number] [place] [address] [place] Creatinine [Mass/Vol] 0.71 mg/dL Low 0.73-1.22 [facility] Comment on above: Order Comment: Speci men Type: BLOOD SPECIMENOrdering Facility: [facility] Address: [address] [place], [place] [id number] Performed By: #### 2 4321-2 ####[facility] LABCLIA [id number] [address] [place] ESTIMATED GLOMERULAR FILTRATION RATE 105 mL/min/1.73m??? Normal >=60 [facility] Comment on above: Order Comment: Speci men Type: BLOOD SPECIMENOrdering Facility: [facility] Address: [address] [phone] Result Comment: Alka mated Glomerular Filtration Rate [...] actual GFR. Performed By: #### 2 4321-2 ####[facility] LABCLIA [id number] [place] [address] [place] Glucose [Mass/Vol] 112 mg/dL High 74-99 [facility] Comment on above: Order Comment: Vahid castaneda Type: BLOOD SPECIMENOrdering Facility: [facility] Address: [address] [place] [address] Result Comment: The [place] [employer] (ADA) provides guidance for cutoff [...] Standards of Medical Care in Diabetes 2016, [place] [employer]. Diabetes Care. 2016.39(Suppl 1). Performed By: #### 2 4321-2 ####[facility] LABCLIA [id number] [place] [address] [place] Potassium [Moles/Vol] 4.3 mmol/L Normal 3.7-5.1 [facility] Comment on above: Order Comment: Vahid castaneda Type: BLOOD SPECIMENOrdering Facility: [facility] Address: [address] [phone] Performed By: #### 2 4321-2 ####[facility] LABCLIA [id number] [place] [address] [place] Sodium [Moles/Vol] 143 mmol/L Normal 136-144 [facility] Comment on above: Order Comment: Speci men Type: BLOOD SPECIMENOrdering Facility: [facility] Address: [address] [place] [address] Performed By: #### 2 4321-2 ####[facility] LABCLIA [id number] [place] [address] [place] Urea nitrogen [Mass/Vol] 19 mg/dL Normal 9-24 [facility] Comment on above: Order Comment: Speci men Type: BLOOD SPECIMENOrdering Facility: [facility] Address: [address] [place] [address] Performed By: #### 2 4321-2 ####[facility] LABCLIA [id number] [place] [address] [place] CBC panel Auto (Bld)on 06-22 Erythrocyte distribution width (RBC) [Ratio] 12.2 % Normal 11.5-15.0 [facility] Comment on above: Order Comment: Speci men Type: BLOOD SPECIMENOrdering Facility: [facility] Address: [address] [place], [place] [address] Performed By: #### 5 8410-2 ####[facility] LABCLIA [id number] [place] [address] [place] Hematocrit (Bld) [Volume fraction] 45.1 % Normal 39.0-51.0 [facility] Comment on above: Order Comment: Speci men Type: BLOOD SPECIMENOrdering Facility: [facility] Address: [address] [place], [place] [address] Performed By: #### 5 8410-2 ####[facility] LABCLIA [id number] [place] [address] [place] Hemoglobin (Bld) [Mass/Vol] 14.9 g/dL Normal 13.0-17.0 [facility] Comment on above: Order Comment: Speci men Type: BLOOD SPECIMENOrdering Facility: [facility] Address: [address] [place], [place] [address] Performed By: #### 5 8410-2 ####[facility] LABIA [id number] [place] MCH (RBC) [Entitic mass] 30.0 pg Normal 26.0-34.0 [facility] Comment on above: Order Comment: Speci men Type: BLOOD SPECIMENOrdering Facility: [facility] Address: [address] [place], [place] [address] Performed By: #### 5 8410-2 ####[facility] LABIA [id number] [address] [place] MCHC (RBC) [Mass/Vol] 33.0 g/dL Normal 30.5-36.0 [facility] Comment on above: Order Comment: Speci men Type: BLOOD SPECIMENOrdering Facility: [facility] Address: [address] [place], [place] [address] Performed By: #### 5 8410-2 ####[facility] LABIA [id number] [address] [place] MCV (RBC) [Entitic vol] 90.7 fL Normal 80.0-100.0 [facility] Comment on above: Order Comment: Speci men Type: BLOOD SPECIMENOrdering Facility: [facility] Address: [address] [place], [place] [address] Performed By: #### 5 8410-2 ####[facility] LABIA [id number] [address] [place] Nucleated RBC (Bld) [#/Vol] 10*3/uL Normal <0.01 [facility] Comment on above: Order Comment: Speci men Type: BLOOD SPECIMENOrdering Facility: [facility] Address: [address] [place], [place] [address] Performed By: #### 5 8410-2 ####[facility] LABIA [id number] [place] [address] [place] Platelet mean volume (Bld) [Entitic vol] 10.2 fL Normal 9.0-12.7 [facility] Comment on above: Order Comment: Speci men Type: BLOOD SPECIMENOrdering Facility: [facility] Address: [address] [place], [place] [address] Performed By: #### 5 8410-2 ####[facility] LABIA [id number] [place] [address] [place] Platelets (Bld) [#/Vol] 239 10*3/uL Normal 150-400 [facility] Comment on above: Order Comment: Speci men Type: BLOOD SPECIMENOrdering Facility: [facility] Address: [address] [place], [place] [address] Performed By: #### 5 8410-2 ####[facility] [id number] [place] [address] [place] RBC (Bld) [#/Vol] 4.97 10*6/uL Normal 4.20-6.00 [facility] Comment on above: Order Comment: Speci men Type: BLOOD SPECIMENOrdering Facility: [facility] Address: [address] [place] [address] Performed By: #### 5 8410-2 ####[facility] LABIA [id number] [place] [address] [place] WBC (Bld) [#/Vol] 18.44 10*3/uL High 3.70-11.[address] [facility] Comment on above: Order Comment: Speci men Type: BLOOD SPECIMENOrdering Facility: [facility] Address: [address] [place], [place] [address] Performed By: #### 5 8410-2 ####[facility] LABCLKANA [id number] [facility] [id number] OF [facility] CNOVon 06-22-2022 CNOV Office Visit (CARCMN ) [place] FRIEND ([id number]) 1960 M Date Time Provider Department 06/22/22 1:15 PM PEDRO ARANDA CARCKADY During your visit today, we recorded the following information about you: Pulse Respiration Blood pressure Weight 68/minute 16/minute 155/87 94.8 kg Pedro Aranda MD 06/22/2022 2:25 PM [facility] [place] Ethan Rodgers Department of Cardiovascular Medicine SECTION OF CLINICAL CARDIOLOGY OUTPATIENT VISIT DATE June 22, 2022 OUTPATIENT VISIT TYPE CONSULTATION PRIMARY CARE PHYSICIAN: Abril Yeboah MD [address] [place] [address] REFERRING PHYSICIAN Odessa Terry [address] [address] CHIEF COMPLAINT: No chief complaint on file. [...] Dentures NECK: (more content not included)... Normal [facility] CONFIRM BLOOD TYPEon 022 ABO O Normal [facility] Comment on above: Order Comment: Speci men Type: BLOOD SPECIMENOrdering Facility: [facility] Address: [address] [place] [address] Performed By: #### C ONABO ####[facility] [id number] [place] [address] [place] Rh Nom (Bld) Positive Normal [facility] Comment on above: Order Comment: Speci men Type: BLOOD SPECIMENOrdering Facility: [facility] Address: [address] [place] [address] Performed By: #### C ONABO ####[facility] BLOOD BANKIA [id number] [place] [address] [place] ECG COMPLETEon 06-22-2022 ECG COMPLETE Ventricular Rate : 6 8 BPM Atrial Rate : 68 BPM P-R Interval : 168 ms QRS Duration : 100 ms Q-T Interval : 388 ms QTC Calculation(Bazett) : 412 ms Calculated P [place] : 29 degrees Calculated R [place] : -20 degrees Calculated T [place] : 3 degrees NORMAL SINUS RHYTHM MINIMAL VOLTAGE CRITERIA FOR LVH, MAY BE NORMAL VARIANT . BORDERLINE ECG Confirmed by DARA TURNER MD ([id number]) on 07/15/2022 2:28:42 PM NAME : [place] FRIEND PID : [id number] : 1960 Gender : Male Race : ORD : [id number] Procedure Date : Jun 22 2022 11:55:39 Edit Date : Jul 15 2022 14:28:45 Diagnosis: NORMAL SINUS RHYTHM MINIMAL VOLTAGE CRITERIA FOR LVH, MAY BE NORMAL VARIANT . BORDERLINE ECG Confirmed by DARA TURNER MD ([id number]) on 07/15/2022 2:28:42 PM Test Reason : Location : 314 : J14 J1-4 Overread By : DARA TURNER MD Edited By : DARA TURNER MD Referred By : ODESSA TERRY Acquired by : TIA WARREN [facility] TYPE AND SCREEN,30 DAYon ABO O Normal [facility] Comment on above: Order Comment: Speci men Type: BLOOD SPECIMENOrdering Facility: [facility] Address: [address] [place] [address] Performed By: #### T SCR30 ####CC [facility] BLOOD BANKCLIA [id number] [place] [address] [place] HISTORICAL AB SCR STATUS Negative Normal [facility] Comment on above: Order Comment: Speci men Type: BLOOD SPECIMENOrdering Facility: [facility] Address: [address] [place] [address] Performed By: #### T SCR30 ####CC [facility] BLOOD BANKCLIA [id number] [place] [address] [place] Rh Nom (Bld) Positive Normal [facility] Comment on above: Order Comment: Speci men Type: BLOOD SPECIMENOrdering Facility: [facility] Address: [address] [place] [address] Performed By: #### T SCR30 ####CC [facility] BLOOD BANKCLIA [id number] [place] [address] [place] ANES POSTPROC EVALon 022 ANES POSTPROC EVAL HNO ID: [id number] Author: Bret Rincon MD Service: Anesthesiology Author [...] December 13, 2021 TIME: 12:51 PM CSN: [id number] [facility] ANES PRE-OPon 12-13-2021 ANES PRE-OP HNO ID: [id number] Author: Bret Rincon MD Service: Anesthesiology Author [...] December 13, 2021 TIME: 9:17 AM CSN: [id number] Normal [facility] Basic Metabolic Panlon 12-13 Anion gap [Moles/Vol] 8 mmol/L Low 9-18 [facility] Comment on above: Performed By: #### C BC, BMP ####[address] [phone] Calcium [Mass/Vol] 9.0 mg/dL Normal 8.5-10.5 [facility] Comment on above: Performed By: #### C BC, BMP ####[address] [phone] Chloride [Moles/Vol] 107 mmol/L Normal 98-110 [facility] Comment on above: Performed By: #### C BC, BMP ####[address] [phone] CO2 [Moles/Vol] 26 mmol/L Normal 23-32 [facility] Comment on above: Performed By: #### C BC, BMP ####[address] [phone] Creatinine [Mass/Vol] 0.84 mg/dL Normal 0.70-1.40 [facility] Comment on above: Performed By: #### C BC, BMP ####[address] [phone] eGFR- Amer. >60 Normal >59 [facility] Comment on above: Performed By: #### C BC, BMP ####[address] [phone] eGFR-All Other Races >60 Normal >59 [facility] Comment on above: Result Comment: eGFR (Estimated [...] [email or web address]. Performed By: #### C BC, BMP ####[address] [phone] Glucose [Mass/Vol] 100 mg/dL Normal 65-100 [facility] Comment on above: Performed By: #### C BC, BMP ####[address] [phone] Potassium [Moles/Vol] 4.0 mmol/L Normal 3.5-5.0 [facility] Comment on above: Performed By: #### C BC, BMP ####[address] [phone] Sodium [Moles/Vol] 141 mmol/L Normal 135-146 [facility] Comment on above: Performed By: #### C BC, BMP ####[address] [phone] Urea nitrogen [Mass/Vol] 20 mg/dL Normal 10-25 [facility] Comment on above: Performed By: #### C BC, BMP ####[address] [phone] CBCon 12-13-2021 Absolute nRBC <0.01 Normal <0.01 [facility] Comment on above: Performed By: #### C BC, BMP ####[address] [phone] Erythrocyte distribution width (RBC) [Ratio] 12.7 % Normal 11.5-15.0 [facility] Comment on above: Performed By: #### C BC, BMP ####[address] [phone] Hematocrit (Bld) [Volume fraction] 47.3 % Normal 39.0-51.0 [facility] Comment on above: Performed By: #### C BC, BMP ####[address] [phone] Hemoglobin (Bld) [Mass/Vol] 16.2 g/dL Normal 13.0-17.0 [facility] Comment on above: Performed By: #### C BC, BMP ####[address] [phone] MCH 29.8 pG Normal 26.0-34.0 [facility] Comment on above: Performed By: #### C BC, BMP ####[address] [phone] MCHC (RBC) [Mass/Vol] 34.2 g/dL Normal 30.5-36.0 [facility] Comment on above: Performed By: #### C BC, BMP ####[address] [phone] MCV (RBC) [Entitic vol] 86.9 fL Normal 80.0-100.0 [facility] Comment on above: Performed By: #### C BC, BMP ####[address] [phone] Platelet mean volume (Bld) [Entitic vol] 10.3 fL Normal 9.0-12.7 [facility] Comment on above: Performed By: #### C BC, BMP ####[address] [phone] Platelets (Bld) [#/Vol] 253 10*3/uL Normal 150-400 [facility] Comment on above: Performed By: #### C BC, BMP ####[facility] [place], [place] [phone] RBC (Bld) [#/Vol] 5.44 10*6/uL Normal 4.20-6.00 [facility] Comment on above: Performed By: #### C BC, BMP ####[id number] [place] [phone] WBC (Bld) [#/Vol] 8.72 10*3/uL Normal 3.70-11.00 [facility] Comment on above: Performed By: #### C BC, BMP ####[phone] [place], [place] [phone] NURSING PROGon 12-13-2021 NURSING PROG HNO ID: [id number] Author: Ita Pabon RN Service: ? Author Type: Registered Nurse Type: Nursing Progress Note Filed: 12/13/2021 10:01 AM Note Text: Successful cardioversion in SR.Post ekg done. at bedside. VSS. given. Pt oliver diet without difficulty. talked with patient and . [facility] OPERATIVE NOon 12-13-2021 OPERATIVE NO HNO ID: [id number] Author: Bull Munoz MD Service: Cardiovascular Medicine Author Type: Physician Type: Operative Report Filed: 12/13/2021 9:55 AM Note Text: Electrical Cardioversion Date: 12/13/2021 Egg Smeller: Bull Munoz MD Indication: atrial fib/flutter. Procedure: [...] AF to sinus rhythm. Bull Munoz MD [facility] ANES POSTPROC EVALon 021 ANES POSTPROC EVAL HNO ID: [id number] Author: Devaughn Degroot DO Service: Anesthesiology Author Type: Anesthesiologist Type: Anesthesia Postprocedure Evaluation Filed: 05/31/2021 11:59 AM Note Text: POST ANESTHESIA EVALUATION NOTE : 1960 Procedure Summary Date: 05/31/21 Room / Location: CATH07 / CATH Anesthesia Start: 1121 Anesthesia Stop: [...] plan of care. No complications documented. SIGNATURE: Devaughn Degroot DO PATIENT NAME: Milton Friend DATE: May 31, 2021 TIME: 11:58 AM CSN: [id number] [facility] ANES PRE-OPon 05-31-2021 ANES PRE-OP HNO ID: [id number] Author: Devaughn Degroot DO Service: Anesthesiology Author [...] May 31, 2021 TIME: 9:47 AM CSN: [id number] Normal [facility] Basic Metabolic Panlon 05-31 Anion gap [Moles/Vol] 11 mmol/L Normal 9-18 [facility] Comment on above: Performed By: #### C BC, BMP ####[address] [phone] Calcium [Mass/Vol] 9.4 mg/dL Normal 8.5-10.5 [facility] Comment on above: Performed By: #### C BC, BMP ####[address] [phone] Chloride [Moles/Vol] 108 mmol/L Normal 98-110 [facility] Comment on above: Performed By: #### C BC, BMP ####[facility] [place], [place] [phone] CO2 [Moles/Vol] 24 mmol/L Normal 23-32 [facility] Comment on above: Performed By: #### C BC, BMP ####[facility] [place] [address] [phone] Creatinine [Mass/Vol] 0.83 mg/dL Normal 0.70-1.40 [facility] Comment on above: Performed By: #### C FORTUNATO, BMP ####[place] [phone] eGFR- Amer. >60 Normal >60 [facility] Comment on above: Performed By: #### C FORTUNATO, BMP ####[address] [phone] eGFR-All Other Races >60 Normal >60 [facility] Comment on above: Result Comment: eGFR (Estimated [...] reflect actual GFR. Performed By: #### C FORTUNATO, BMP ####[address] [phone] Glucose [Mass/Vol] 100 mg/dL Normal 65-100 [facility] Comment on above: Performed By: #### C FORTUNATO, BMP ####[place] [phone] Potassium [Moles/Vol] 4.1 mmol/L Normal 3.5-5.0 [facility] Comment on above: Performed By: #### C FORTUNATO, BMP ####[address] [phone] Sodium [Moles/Vol] 143 mmol/L Normal 135-146 [facility] Comment on above: Performed By: #### C BC, BMP ####[place] [phone] Urea nitrogen [Mass/Vol] 16 mg/dL Normal 10-25 [facility] Comment on above: Performed By: #### C FORTUNATO, BMP ####[place] [phone] CBCon 05-31-2021 Absolute nRBC <0.01 Normal <0.01 [facility] Comment on above: Performed By: #### C BC, BMP ####[address] [phone] Erythrocyte distribution width (RBC) [Ratio] 12.6 % Normal 11.5-15.0 [facility] Comment on above: Performed By: #### C BC, BMP ####[place] [phone] Hematocrit (Bld) [Volume fraction] 48.2 % Normal 39.0-51.0 [facility] Comment on above: Performed By: #### C FORTUNATO, BMP ####[address] [phone] Hemoglobin (Bld) [Mass/Vol] 16.6 g/dL Normal 13.0-17.0 [facility] Comment on above: Performed By: #### C FORTUNATO, BMP ####[place] [phone] MCH 29.4 pG Normal 26.0-34.0 [facility] Comment on above: Performed By: #### C FORTUNATO, BMP ####[place] [phone] MCHC (RBC) [Mass/Vol] 34.4 g/dL Normal 30.5-36.0 [facility] Comment on above: Performed By: #### C BC, BMP ####[place] [phone] MCV (RBC) [Entitic vol] 85.3 fL Normal 80.0-100.0 [facility] Comment on above: Performed By: #### C BC, BMP ####[place] [phone] Platelet mean volume (Bld) [Entitic vol] 10.5 fL Normal 9.0-12.7 [facility] Comment on above: Performed By: #### C BC, BMP ####[address], [place] [phone] Platelets (Bld) [#/Vol] 247 10*3/uL Normal 150-400 [facility] Comment on above: Performed By: #### C BC, BMP ####[address] [phone] RBC (Bld) [#/Vol] 5.65 10*6/uL Normal 4.20-6.00 [facility] Comment on above: Performed By: #### C BC, BMP ####[address] [phone] WBC (Bld) [#/Vol] 8.41 10*3/uL Normal 3.70-11.00 [facility] Comment on above: Performed By: #### C OFRTUNATO, BMP ####[address] [phone] NURSING PROGon 05-31-2021 NURSING PROG HNO ID: [id number] Author: Ita Pabon RN Service: ? Author Type: Registered Nurse Type: Nursing Progress Note Filed: 05/31/2021 11:59 AM Note Text: JOSE done. No clot Successful cardioversion in SR. Post EKg done. at bedside. VSS Theresa florencia given. Pt oliver diet without difficulty. talked with patient and family . Meds to the bed used for Eliquis To start eliquis today. Normal [facility] OPERATIVE NOon 05-31-2021 OPERATIVE NO HNO ID: [id number] Author: Milton Alberts MD Service: Cardiovascular Medicine Author Type: Physician Type: Operative Report Filed: 05/31/2021 11:31 AM Note Text: Cardioversion Indication: atrial fibrillation Conclusions/ Recommendation: Successful cardioversion of atrial fib to sinus, eliquis for 3 weeks and referral placed for Watchman device at [facility]. Procedure: The patient was taken to the pre-post cardivascular procedure unit. Informed consent was obtained. A transeophageal echo was performed prior to the procedure . There was no thrombus detected. Deep Sedation : provided by Anesthesia consisting of continuous ECG, pulse oxymetry, ET CO2 , and cardiopulmonary monitoring. This was performed by the anesthesiologist / packing machine pilot can router and Cardiology Nurse, overseen by the performing [...] Alberts MD May 31, 2021 11:28 AM [facility] OPERATIVE NO HNO ID: [id number] Author: Milton Alberts MD Service: Cardiovascular Medicine [...] of eliquis and referral for Watchman at [facility] Specimens: none Blood loss: none Moderate Sedation : Moderate Sedation provided by Cardiology Interventional Nursing Staff. Moderate sedation consisting of continuous ECG, pulse oxymetry and cardiopulmonary monitoring was performed by the Cardiology Nurse, overseen by the performing physician(s), for my intra service time of 45min. Sedative Drugs: Medication: Versed 2mg IV and Fentanyl 100mcg IV Complications: none Milton Alberts MD [facility] Vital Signs Date Time Vital Sign Value Performing Clinician Aleksandr maldonado 05-06-2024 13:31-0400 Blood Pressure Location Dara RICHARDSON [facility] 05-06-2024 13:31-0400 Diastolic blood pressure 94 mm[Hg] Dara RICHARDSON [facility] 05-06-2024 13:31-0400 Heart rate 72 /min Dara RICHARDSON [facility] [place] 05-06-2024 13:31-0400 Respiratory rate 16 /min Dara VILCHISChilo [facility] [place] 05-06-2024 13:31-0400 Systolic blood pressure 138 mm[Hg] Dara VILCHISL [facility] [place] 04-16-2023 10:26-0400 Body height 168.9 cm Odessa Terry MD Work Phone: [facility] 04-16-2023 10:26-0400 Body weight 97.52 kg Odessa Terry MD Work Phone: [facility] 04-16-2023 10:26-0400 Diastolic blood pressure 83 mm[Hg] Odessa Terry MD Work Phone: [facility] 04-16-2023 10:26-0400 Heart rate 79 /min Odessa Terry MD Work Phone: [facility] 04-16-2023 10:26-0400 Systolic blood pressure 129 mm[Hg] Odessa Terry MD Work Phone: [facility] 10-04-2022 12:40-0500 Body height 168.9 cm Odessa Terry MD Work Phone: [facility] 10-04-2022 12:40-0500 Body weight 95.71 kg Odessa Terry MD Work Phone: [facility] 10-04-2022 12:40-0500 Diastolic blood pressure 85 mm[Hg] Odessa Terry MD Work Phone: [facility] 10-04-2022 12:40-0500 Heart rate 54 /min Odessa Terry MD Work Phone: [facility] 10-04-2022 12:40-0500 Systolic blood pressure 141 mm[Hg] Odessa Terry MD Work Phone: [facility] 10-04-2022 11:15-0500 Diastolic blood pressure 81 mm[Hg] Transesophageal Main [facility] 10-04-2022 11:15-0500 Heart rate 60 /min Transesophageal [facility] 10-04-2022 11:15-0500 Respiratory rate 18 /min Transesophageal Main [facility] 10-04-2022 11:15-0500 SaO2% (BldA) [Mass fraction] 96 % Transesophageal Main [facility] 10-04-2022 11:15-0500 Systolic blood pressure 130 mm[Hg] Transesophageal [facility] 10-04-2022 09:46-0500 Body temperature 97 [degF] Transesophageal [facility] 06-22-2022 13:55-0400 Diastolic blood pressure 87 mm[Hg] Pedro Aranda MD Work Phone: [facility] 06-22-2022 13:55-0400 Systolic blood pressure 155 mm[Hg] Pedro Aranda MD Work Phone: [facility] 06-22-2022 13:52-0400 Body weight 94.8 kg Pedro Aranda MD Work Phone: [facility] 06-22-2022 13:52-0400 Heart rate 68 /min Pedro Aranda MD Work Phone: [facility] 06-22-2022 13:52-0400 Respiratory rate 16 /min Pedro Aranda MD Work Phone: [facility] 06-22-2022 13:52-0400 SaO2% (BldA) [Mass fraction] 96 % Pedro Aranda MD Work Phone: [facility] 01-29-2022 08:47-0400 Body weight 92.99 kg Milton Alberts MD Work Phone: [facility] 01-29-2022 08:47-0400 Diastolic blood pressure 93 mm[Hg] Milton Alberts MD Work Phone: [facility] 01-29-2022 08:47-0400 Heart rate 62 /min Milton Alberts MD Work Phone: [facility] 01-29-2022 08:47-0400 Systolic blood pressure 167 mm[Hg] Milton Alberts MD Work Phone: [facility] Encounters Encounter Date Encounter Type Care Provider Facility Start: 05-06-2024 End: 05-06-2024 ambulatory Dara RICHARDSON Facility:[facility] Start: 05-06-2024 End: 05-06-2024 Patient encounter procedure Dara RICHARDSON [facility] Start: 03-24-2024 ambulatory Dara RICHARDSON Facility:[facility] Start: 09-12-2023 End: 09-12-2023 ambulatory KERLINE Ferguson APLING Not Available Start: 09-09-2023 End: 09-09-2023 ambulatory KERLINE Phyllis APLING Not Available Start: 04-26-2023 Telephone encounter dOessa Terry MD Work Phone: Cardiology Comment on above: Patient Question (As prin) Start: 04-16-2023 End: 04-16-2023 ambulatory ABRIL YEBOAH Facility:[facility] Start: 04-16-2023 End: 04-16-2023 Patient encounter procedure Odessa Terry MD Work Phone: Cardiology Comment on above: 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 Facility: Start: 02-20-2023 Telephone encounter Odessa Terry MD Work Phone: Cardiology Comment on above: Patient Question (Pa tient left a VM on Device Clinic line, want to know the model number of the Watchman that was implanted in the fall. Please call the patient at [phone]) Patient Question Start: 11-28-2022 Refill Milton temple MD Work Phone: Cardiology Comment on above: Refill Request Start: 10-04-2022 End: 10-04-2022 ambulatory [facility] Facility:[facility] Start: 10-04-2022 End: 10-04-2022 Patient encounter procedure Odessa eTrry MD Work Phone: Cardiology Comment on above: Atrial fibrillation, persistent (HCC) (Primary Dx) Start: 10-04-2022 End: 10-04-2022 [facility] Facility:[facility] Start: 10-04-2022 End: 10-04-2022 Patient encounter procedure Transesophageal Echo Card Main Cardiology Comment on above: Persistent atrial fi brillation (HCC) Start: 10-03-2022 Telephone encounter Leann Lewis RN Cardiology Comment on above: Reminder Call (jose) Start: 09-27-2022 Arrhythmia TTM Odessa Sanchez i, MD Work Phone: [facility] Department Start: 09-27-2022 Recurring Plan Odessa Sanchez i, MD Work Phone: [facility] Start: 09-06-2022 Arrhythmia TTM Odessa Sanchez i, MD Work Phone: [facility] Start: 09-06-2022 Recurring Plan Odessa Sanchez i, MD Work Phone: [facility] Start: 08-30-2022 Arrhythmia TTNic Sanchez i, MD Work Phone: [facility] Start: 08-30-2022 Recurring Plan Odessa Sanchez i, MD Work Phone: [facility] Start: 08-20-2022 Arrhythmia TTNic Sanchez i, MD Work Phone: [facility] Start: 08-20-2022 Recurring Plan Odessa Sanchez i, MD Work Phone: [facility] Start: 08-10-2022 Arrhythmia TTM Odessa Sanchez i, MD Work Phone: [facility] Start: 08-10-2022 Recurring Plan Odessa Sanchez i, MD Work Phone: [facility] Start: 08-03-2022 Arrhythmia TTM Odessa Sanchez i, MD Work Phone: [facility] Start: 08-03-2022 Recurring Plan Odessa Sanchez i, MD Work Phone: [facility] Start: 07-20-2022 Arrhythmia TTNic Sanchez i, MD Work Phone: [facility] Start: 07-20-2022 Recurring Plan Odessa Sanchez i, MD Work Phone: [facility] Start: 07-11-2022 Arrhythmia TTM Odessa Sanchez i, MD Work Phone: [facility] Start: 07-11-2022 Recurring Plan Odessa Sanchez i, MD Work Phone: [facility] Start: 06-26-2022 ambulatory Odessa Sanchez i, MD Work Phone: Cardiology Comment on above: Persistent atrial fi brillation (HCC) (Primary Dx) Start: 06-26-2022 Telephone encounter Leena DAVIS Comment on above: Follow Up Phone Call (Relate care discharge follow [id number] clear) Start: 06-25-2022 End: 06-26-2022 ambulatory Odessa Terry MD Work Phone: Cardiology Comment on above: transmitter Start: 06-25-2022 End: 06-25-2022 Evaluation and management of inpatient ODESSA TERRY Facility:[facility] Start: 06-22-2022 Encounter for preprocedural cardiovascular examination HEBA WASSIF [facility] Start: 06-22-2022 End: 06-23-2022 ambulatory Odessa Terry [...] Comment on above: Performed By: #### P [facility] #### [facility] [address] [place] [address] Dr. 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.SOCIAL SERVICES TECHNICIAN Work Phone: Start: 09-27-2022 ARRHYTHMIA TRANS TEL [...] Comment: Speci men Type: BLOOD SPECIMENOrdering Facility: [facility] Address: [address] [place], [place] [address] Performed By: #### T [id number] ####CC [facility] BLOOD BANKCLIA [id number] [facility] [id number] [id number] [place] Start: 05-28-2022 Cardiac radiofrequen cy ablation using ultrasound guidance Dara RICHARDSON Start: 05-28-2022 Watchman (occupation) M cody RICHARDSON Start: 03-14-2016 Colonoscopy Dara FERRIS TREVA Repair of musculoten dinous cuff of shoulder Dara DYLAN Comment on above: x2 Resection of clavicle Michae chilo DYLAN Vasectomy Dara DYLAN Plan of Treatment Date Care Activity Detail Author Start: 03-12-2028 PROSTATE CANCER SCRE ENING DISCUSSION PROSTATE CANCER SCREENING DISCUSSION [facility] Start: 06-22-2025 DIABETES SCREEN DIABETES SCREEN [facility] Start: 12-13-2024 DIABETES SCREEN DIABETES SCREEN [facility] Start: 06-28-2023 Influenza vaccination INFLUENZA (#1) [facility] Start: 10-28-2022 DEPRESSION ASSESSMENT DEPRESSION ASS ESSMENT [facility] Start: 06-29-2022 COVID-19 VACCINE (5 - Booster for Pfizer series) COVID-19 VACCINE (5 - Booster for Pfizer series) [facility] Start: 06-28-2022 Influenza vaccination INFLUENZA (#1) [facility] Start: 05-14-2022 End: 05-14-2023 Basic metabolic 2000 panel - Serum or Plasma BASIC METABOLIC PNL Lab Routine Persistent atrial fibrillation (HCC) Expected: 05/14/2022, Expires: 05/14/2023 [facility] Work Phone: Comment on above: Expected: 05/14/2022 , Expires: 05/14/2023 Start: 05-14-2022 End: 05-14-2023 CBC panel - Blood by Automated count CBC Lab Routine Persistent atrial fibrillation (HCC) Expected: 05/14/2022, Expires: 05/14/2023 [facility] Work Phone: Comment on above: Expected: 05/14/2022 , Expires: 05/14/2023 Start: 05-14-2022 End: 05-14-2023 CONFIRM BLOOD TYPE CONFIRM BLOOD TYPE Blood Bank Routine Persistent atrial fibrillation (HCC) Expected: 05/14/2022, Expires: 05/14/2023 [facility] Work Phone: Comment on above: Expected: 05/14/2022 , Expires: 05/14/2023 Start: 05-14-2022 End: 05-14-2023 SARS-CoV-2 (COVID-19) RNA [Presence] in Respiratory specimen by EDMAR with probe detection PRE-PROCEDURE & PRE-OPERATIVE COVID Microbiology Routine Persistent atrial fibrillation (HCC) Expected: 05/14/2022, Expires: 05/14/2023 [facility] Work Phone: Comment on above: Expected: 05/14/2022 , Expires: 05/14/2023 Start: 05-14-2022 End: 05-14-2023 TYPE AND SCREEN,30 DAY TYPE AND SCREEN,30 DAY Blood Bank Routine Persistent atrial fibrillation (HCC) Expected: 05/14/2022, Expires: 05/14/2023 [facility] Work Phone: Comment on above: Expected: 05/14/2022 , Expires: 05/14/2023 Start: 02-20-2022 COVID-19 VACCINE (3 - Booster) COVID-19 VACCINE (3 - Booster) [facility] Start: 10-28-2021 DEPRESSION ASSESSMENT DEPRESSION ASS ESSMENT [facility] Start: 2017 PROSTATE CANCER SCRE ENING DISCUSSION PROSTATE CANCER SCREENING DISCUSSION [facility] Start: 02-08-2012 SHINGRIX VACCINE (1 of 2) BLACKBURN GRIX VACCINE (1 of 2) [facility] Start: 2007 COLOGUARD (FIT-DNA) COLOGUARD (FIT-D NA) [facility] Start: 2007 Colonoscopy COLONOSCOPY [facility] Start: 2007 COLORECTAL CANCER SCREENING COLORECTAL CANCER SCREENING [facility] Start: [address] [facility] Start: 2007 FECAL OCCULT BLOOD FECAL OCCULT BLOO D [facility] Start: 2007 [facility] Start: 1997 LIPID SCREEN LIPID SCREEN [facility] Start: 1981 Urine microalbumin profile DTAP,TDAP,TD (1 - Tdap) [facility] Start: 02-08-1980 ANNUAL PCP TEAM HEEL SEAT POUNDER JOEY DISEASE VISIT ANNUAL PCP TEAM CHRONIC DISEASE VISIT [facility] Start: 02-08-1980 BP CONTROLLED (<130/80) BP CONTROLLE D (<130/80) [facility] Start: 02-08-1980 HEPATITIS C SCREENING HEPATITIS C SC REENING [facility] Start: 02-08-1980 HIV SCREENING HIV SCREENING [facility] Start: 1974 Adult depression screening assessment DEPRESSION SCREENING [facility] End: 05-14-2023 ECG COMPLETE ECG COMPLETE ECG Routine Persistent atrial fibrillation (HCC) 1 Occurrences starting 05/14/2022 until 05/14/2023 [facility] Work Phone: Comment on above: 1 Occurrences starti ng 05/14/2022 until 05/14/2023 End: 06-26-2023 ECG COMPLETE ECG COMPLETE ECG Routine Persistent atrial fibrillation (HCC) 1 Occurrences starting 06/26/2022 until 06/26/2023 [facility] Work Phone: Comment on above: 1 Occurrences starti ng 06/26/2022 until 06/26/2023 End: 05-14-2023 ECHO TRANSESOPHAGEAL ECHO TRANSESOPHAGEAL Cardiology Routine Persistent atrial fibrillation (HCC) 1 Occurrences starting 05/14/2022 until 05/14/2023 [facility] Work Phone: Comment on above: 1 Occurrences starti ng 05/14/2022 until 05/14/2023 End: 06-26-2023 ECHO TRANSESOPHAGEAL ECHO TRANSESOPHAGEAL Cardiology Routine Persistent atrial fibrillation (HCC) 1 Occurrences starting 06/26/2022 until 06/26/2023 [facility] Work Phone: Comment on above: 1 Occurrences starti ng 06/26/2022 until 06/26/2023 ECHO TRANSESOPHAGEAL ECHO TRANSE SOPHAGEAL Cardiology Routine Atrial fibrillation, persistent (HCC) Ordered: 10/04/2022 [facility] Work Phone: Comment on above: Ordered: 10/04/2022 End: 08-30-2023 Echocardiography ECHO Cardiology Routine Persistent atrial fibrillation (HCC) 1 Occurrences starting 06/26/2022 until 06/26/2023 [facility] Work Phone: Comment on above: 1 Occurrences starti ng 06/26/2022 until 06/26/2023 End: 01-29-2023 EXERCISE STRESS ECG (WITHOUT IMAGING) EXERCISE STRESS ECG (WITHOUT IMAGING) Cardiology Routine Persistent atrial fibrillation (HCC) Primary hypertension 1 Occurrences starting 01/29/2022 until 01/29/2023 [facility] Work Phone: Comment on above: 1 Occurrences starti ng 01/29/2022 until 01/29/2023 [facility] Immunizations Immunization Date Immunization Notes Care Provider Fa [facility] 09-30-2023 influenza virus vaccine, unspecified formulation Dara RICHARDSON [facility] 05-04-2022 SARS-CoV-2 mRNA (qgqnyhvaqvk-zaxv-cqyoy se) vaccine Dara RICHARDSON [facility] 09-22-2021 SARS-CoV-2 (COVID-19 ) mRNA-[address] [facility] 01-21-2021 SARS-CoV-2 (COVID-19 ) mRNA BNT-162b2 vax Dara RICHARDSON [facility] Comment on above: Result Comment: 2023: [id number] Payers Date Payer Category Payer Private Health Insurance 101 [id number] 2020 Medicare HUMANA MEDICARE HU[employer]NA MEDICARE PPO [id number] 2020-Present [id number] [place] [address] PPO [id number] 2020 Medicare HUMANA MEDICARE HU[employer]NA MEDICARE PPO [id number] 2020-Present [phone] [address] [address] [place] [address] PPO [id number] 1962 Unknown [id number] 1962 Unknown [id number] 1962 Unknown [id number] 1962 Unknown [id number] 1959 Medicare [id number] Social History Date Type Detail Facility Start: 11-23-2013 End: 05-06-2024 Tobacco smoking status OHIS Never smoked tobacco [facility] Start: 11-23-2013 End: 10-04-2022 Tobacco use and exposure Smokeless tobacco non-user [facility] Start: 01-29-2022 End: 04-16-2023 Alcohol intake Current drinker of alcohol (finding) [facility] Start: 11-23-2013 History SDOH Alcohol Comment 2-3 drinks weekly [facility] Start: 1960 Sex Assigned At Not on file [facility] Start: 11-11-2021 End: 06-25-2022 Exposure to SARS-CoV-2 (event) Not sure [facility] Start: 04-19-2022 Alcohol intake Ex-drinker (finding) [facility] Start: 05-15-2022 End: 06-27-2022 Exposure to SARS-CoV-2 (event) Unable to assess [facility] Start: 06-22-2022 History SDOH Alcohol Comment social, rarely [facility] Start: 06-11-2022 End: 06-21-2022 Exposure to SARS-CoV-2 (event) Yes [facility] Start: 04-16-2023 Alcohol Comment social, sips a couple times a week [facility] Tobacco smoking status Never [facility] Sex Assigned At Male [facility] Functional Status Date Assessment Result Facility 05-06-2024 Functional Status N/A [facility] Clinical Notes 05-31-2021 to 05-06-2024 Telephone Encounter - Joy Greenwood RN - 04/29/2023 5:46 PM EDTTelephone Encounter - Karla Rausch - 04/26/2023 11:24 AM Geraldo Terry MD - 04/16/2023 10:30 AM EDTPatient Instructions Note Date & Type Note Facility 05-06-2024 Note General Surgery Offi ce/Clinic Note Chief Complaint consultation for positive occult stool HPI Staff 64 year old male presents on consultation from Dr Yeboah for positive occult stool. Denies abdominal or rectal pain. No rectal bleeding or change in bowel habits. Denies nausea or vomiting. No unexplained weight loss. Last colonoscopy completed 02/2016 with diverticular disease. No known family history of colon cancer. History of Present Illness 64 yo male with h/o htn, atrial fibrillation, cva with hemiplegia, MONO, hyperlipidemia, GERD, referred for positive fecal occult blood test; patient denies change in bms or gross blood in stools, no abd complaints; last colonoscopy 2015 with mild diverticulosis, no abd operations; on baby asa daily, and ibuprofen prn; no tobacco use; uses marijuana daily. Review of Systems PHQ Score Initial Depression Screen Score: 0 SCORE ROS - Provider Constitutional: no fever, no sweats, no weight loss. Eyes: no glasses, no blurred vision, no visual loss. ENMT: no dentures, no hoarseness, no swallowing difficulties, no hearing loss, no ear infection(s), no nose bleeds. Cardiovascular: normal blood pressure, no chest pain, regular heartbeat, no heart murmur. Respiratory: no shortness of breath, no cough, no asthma, no wheezing. Gastrointestinal: no nausea, no vomiting, no diarrhea, no constipation, no blood in stool, no change in bowel habits, no abdominal pain, no hepatitis. Genitourinary: no kidney stones, no urine infection, no dysuria. Musculoskeletal: no pain, no weakness. Skin: no changing moles, no rash, no skin lumps. Neurologic: no seizures, no epilepsy, no headache. Psychiatric: no emotional or psychiatric problem. Heme/Lymph: no bleeding problems, no anemia, no blood clots, no transfusions. Allergy/Immunologic: no swollen lymph nodes/glands, no IV drug abuse. Other: Additional ROS info: Except as noted in the above Review of Systems and in the History of Present Illness, all other systems have been reviewed and are negative or noncontributory. Physical Exam Vitals & Measurements HR: 72(Peripheral) RR: 16 BP: 138/94 HT: 66 in HT: 167.6 cm WT: 94.4 kg WT: 207.68 lb BMI: 33.61 HEENT: normal conjunctiva, sclera clear, no scleral icterus, EOM intact, PERRLA, oral mucosa moist without lesions. Neck: trachea midline, no mass, symmetric, no thyromegaly or nodules, no adenopathy Respiratory: lungs CTA, respirations non labored. Cardiovascular: regular rate and rhythm, no murmur, no pedal edema or varicosities. Gastrointestinal: obese, soft, non distended, no tenderness, no masses, no palpable hernias, diastasis recti no, no hepatosplenomegaly; normal bs Lymphatic: no cervical adenopathy, no supraclavicular adenopathy. Musculoskeletal: normal gait, digits and nails without infection, nodes, cyanosis, clubbing. Skin: no rashes, no lesions, no ulcers, no subcutaneous nodules, induration. Psychiatric/Neuro: oriented to time, place, person, judgement normal, affect appropriate for age, insight intact, no focal deficits. Tests: labs reviewed, review of old records completed , Discussed surgical options, risks, and possible complications with patient. Assessment/Plan 1. Positive occult stool blood test (R19.5: Other fecal abnormalities) plan colonoscopy under anesthesia, informed consent obtained. continue baby asa. Follow-up No qualifying data available Problem List/Past Medical History Ongoing Atrial fibrillation BMI 33.0-33.9,adult Cerebrovascular accident with intracranial hemorrhage Chronic pain Diverticular disease of colon Erectile dysfunction Essential hypertension Gastroesophageal reflux disease Gout Hemiplegia of nondominant side as late effect of cerebrovascular disease Hiatal hernia Hyperlipidemia Hypertriglyceridemia Insomnia Intracranial aneurysm Mixed hyperlipidemia Obesity due to excess calories Obstructive sleep apnea syndrome Positive occult stool blood test Historical No qualifying data Procedure/Surgical History Cardiac radiofrequency ablation using ultrasound guidance (05/2022), Watchman (05/2022), Colonoscopy (03/14/2016), Resection of clavicle, Rotator cuff repair, Rotator cuff repair, Vasectomy. Medications allopurinol 100 mg Tab, 100 mg= 1 tab(s), Oral, Daily aspirin 81 mg Chew Tab, 81 mg= 1 tab(s), Chewed, Daily atenolol 50 mg Tab, 100 mg= 2 tab(s), Oral, Daily diazepam 5 mg Tab, 5 mg= 1 tab(s), Oral, BID Glucosamine Chondroitin hydrALAZINE 25 mg Tab, 25 mg= 1 tab(s), Oral, TID hydrochlorothiazide 25 mg Tab, 25 mg= 1 tab(s), Oral, Daily ibuprofen 400 mg Tab, 400 mg= 1 tab(s), Oral, TID magnesium oxide 250 mg oral tablet, 250 mg= 1 tab(s), Oral, Daily omeprazole 20 mg Cap-DR, 20 mg= 1 cap(s), Oral, Daily verapamil 240 mg ER Tab, 240 mg= 1 tab(s), Oral, qAM Viagra 100 mg Tab, 100 mg= 1 tab(s), Oral, Daily, PRN zolpidem 5 mg Tab, 5 mg= 1 tab(s), Oral, Once a day (at bedtime) Allergies Cipro (Joint (more content not included)... [facility] Comment on above: Result Comment: Elec tronically Signed By: DYLAN HUSSEIN, Dara Pham.brad\Date and Time Signed: 05/06/24 13:50 EDT 04-29-[address] Terry reviewed JOSE again to assess Watchman leak. OK to hold aspirin for procedure and resume afterwards. Joy Greenwood RN April 26, 2023 Patient Contact Number: [phone] (home) [phone] (cell) Patient last seen within the last year Yes Reason For Call: Medication Issue/Question: Patient is calling. He wanted to know when he should stop taking his Asprin, he will be having a procedure done on May 08. Please call and advise patient at the above number. Karla documented in this encounter [facility] 04-16-2023 Note HNO ID: [id number] Author: Odessa Terry MD Service: ? Author Type: Physician Type: Progress Notes Filed: 06/14/2023 3:15 PM Note Text: [facility] [place] [facility] Department of Cardiovascular Medicine SECTION OF CARDIAC PACING and ELECTROPHYSIOLOGY OUTPATIENT VISIT DATE April 16, 2023 OUTPATIENT VISIT TYPE ESTABLISHED PRIMARY CARE PHYSICIAN: Abril Yeboah [address] [place] [address] CHIEF COMPLAINT: AF HISTORY OF PRESENT ILLNESS/NURSING INTAKE HISTORY: Mr. Friend is a 63 year old male who presents today for follow-up visit s/p concomitant Watchman + PVI on 06/26/22. He history of recurrent, persistent symptomatic atrial fibrillation. Watchman indication was prior intracranial hemorrhage. He has a [id number] score of 3 for hypertension and prior [...] reports he went out of rhythm Saturday and believes he has been out since. [...] and confirmed the findings of the Physician Die Grinder/Nurse Practitioner or fellow/resident above, with the addition of appropriate modifications and corrections. I rizzo (more content not included)... [facility] 04-16-2023 History of Present illness Narrative Images from the original note were not included. [facility] [place] [facility] Department of Cardiovascular Medicine SECTION OF CARDIAC PACING and ELECTROPHYSIOLOGY OUTPATIENT VISIT DATE April 16, 2023 OUTPATIENT VISIT TYPE ESTABLISHED PRIMARY CARE PHYSICIAN: Abril Yeboah [address] [place] [address] CHIEF COMPLAINT: AF HISTORY OF PRESENT ILLNESS/NURSING INTAKE HISTORY: Mr. Friend is a 63 year old male who presents today for follow-up visit s/p concomitant Watchman + PVI on 06/26/22. He history of recurrent, persistent symptomatic atrial fibrillation. Watchman indication was prior intracranial hemorrhage. He has a [id number] score of 3 for hypertension and prior [...] For Echo procedure^Disp: 10 mL^Rfl: 0 Carina Lakrin RN I have seen and evaluated the patient and confirmed the findings of the Physician Die Grinder/Nurse Practitioner or fellow/resident above, with the addition [...] was prior intracranial hemorrhage. He has a [id number] score of 3 for hypertension and prior [...] Odessa Terry MD documented in this encounter [facility] 04-15-2023 Miscellaneous Notes ECHO LAB TELEPHONE [...] Department of CARDIOLOGY. documented in this encounter [facility] 02-20-2023 Miscellaneous Notes Returned call to patient. No answer. Information re: his Watchman device sent to patient via [employer] message. Joy Greenwood RN documented in this encounter [facility] 02-20-2023 Miscellaneous Notes Scheduling just called for patient. Kyra Clements documented in this encounter [facility] 11-28-2022 Miscellaneous Notes Pharmacy electronically requests the following refill(s) Requested Prescriptions Pending Prescriptions Disp Refills hydrALAZINE (APRESOLINE) 50 mg tablet [Pharmacy Med Name: HYDRALAZINE HYDROCHLORIDE 50 MG Tablet] 270 tablet 3 Sig: TAKE 1 TABLET THREE TIMES DAILY Nelly Wilson documented in this encounter [facility] 10-04-2022 Note HNO ID: [id number] Author: Odessa Terry MD Service: ? Author Type: Physician Type: Progress Notes Filed: 10/05/2022 3:08 PM Note Text: [facility] [place] [facility] Department of Cardiovascular Medicine SECTION OF CARDIAC PACING and ELECTROPHYSIOLOGY OUTPATIENT VISIT DATE October 04, 2022 OUTPATIENT VISIT TYPE ESTABLISHED PRIMARY CARE PHYSICIAN: Abril Yeboah MD [address] [place] [address] CHIEF COMPLAINT: AF Watchman in place HISTORY OF PRESENT ILLNESS/NURSING INTAKE: Mr. Friend is a 62 year old male who presents today for follow-up visit after concomitant Watchman + PVI on 06/26/22. He has a history of recurrent, persistent symptomatic atrial fibrillation. Watchman indication was prior intracranial hemorrhage. He has a [id number] score of 3 for hypertension and prior [...] / IMPRESSION, PL (more content not included)... [facility] 10-04-2022 History of Present illness Narrative Images from the original note were not included. [facility] Department of Cardiovascular Medicine SECTION OF CARDIAC PACING and ELECTROPHYSIOLOGY OUTPATIENT VISIT DATE October 04, 2022 OUTPATIENT VISIT TYPE ESTABLISHED PRIMARY CARE PHYSICIAN: Abril Yeboah MD [address] [place] [address] CHIEF COMPLAINT: AF Watchman in place HISTORY OF PRESENT ILLNESS/NURSING INTAKE: Mr. Friend is a 62 year old male who presents today for follow-up visit after concomitant Watchman + PVI on 06/26/22. He has a history of recurrent, persistent symptomatic atrial fibrillation. Watchman indication was prior intracranial hemorrhage. He has a [id number] score of 3 for hypertension and prior [...] was prior intracranial hemorrhage. He has a [id number] score of 3 for hypertension and prior stroke. He continues on Eliquis currently. TTM transmissions have shown NSR. Doing very well with no recurrence of AF. I reviewed the JOSE with Dr. Sheth minimal flow with no clear tract into the appendage. Stop apixaban . Continue aspirin. Followup in 6 months with JOSE. MD Odessa Burr MD documented in this encounter [facility] 10-04-2022 Note HNO ID: [id number] Author: Chelly Yap RN Service: ? Author [...] LIMITATIONS AFFECTING LEARNING: None LEARNING RESPONSE DIAGNOSIS: watchsaint john 45 day followup METHOD OF INSTRUCTION: Individual [...] By Chelly Yap RN In Department: CARDIOLOGY [facility] 10-04-2022 History of Present illness Narrative AMBULATORY [...] In Department: CARDIOLOGY documented in this encounter [facility] 10-03-2022 Miscellaneous Notes ECHO LAB TELEPHONE [...] Department of CARDIOLOGY. documented in this encounter [facility] 06-26-2022 Miscellaneous Notes We are calling to check on you since you left the hospital yesterday. Are you having any medical concerns we can help you with today? none Call Outcome All Clear Closing comments given. Pt states they have 24 hr RN resource phone number and website in discharge paperwork. documented in this encounter [facility] 06-26-2022 Note HNO ID: [id number] Author: Odessa Terry MD Service: ? Author Type: Physician Type: Progress Notes Filed: 06/26/2022 9:36 AM Note Text: Spoke with Mr. Friend. Doing very well with mild groin discomfort but no bleeding or hematoma. Odessa Terry MD [facility] 06-26-2022 History of Present illness Narrative Spoke with Mr. Friend. Doing very well with mild groin discomfort but no bleeding or hematoma. Odessa Terry MD documented in this encounter [facility] 06-25-2022 Note HNO ID: [id number] Author: Jenae Viera Service: ? Author Type: ? Type: Progress Notes Filed: 06/25/2022 6:25 PM Note Text: TRANSMITTER INSTRUCTIONS Patient Name: Milton Mease [facility] Number: [id number] Fresh battery inserted in monitor Baseline recording not completed Patient instructed 1.) Scheduled and Symptomatic recording instructions 2.) Usage of event button and/or transmission instructions 3.) Maintenance and care of monitor 4.) Landline availability 5.) Return unit at the end of prescribed order 6.) Call with problems [phone] Patient expresses good verbal understanding of instructions Jenae Viera [facility] 06-25-2022 History of Present illness Narrative TRANSMITTER INSTRUCTIONS Patient Name: Milton Mease [facility] Number: [id number] Fresh battery inserted in monitor Baseline recording not completed Patient instructed 1.) Scheduled and Symptomatic recording instructions 2.) Usage of event button and/or transmission instructions 3.) Maintenance and care of monitor 4.) Landline availability 5.) Return unit at the end of prescribed order 6.) Call with problems [phone] OR [phone] Patient expresses good verbal understanding of instructions Jenae Viera documented in this encounter [facility] 06-25-2022 Note HNO ID: [id number] Author: Blake Dee MD Service: Cardiovascular Medicine [...] of medications Full report to follow in [facility] (Under Chart Review -> Cardiac ) Blake Dee MD Electrophysiology Fellow PGY-VII P: [phone] June 25, 2022 12:06 PM [facility] 06-25-2022 Note HNO ID: [id number] Author: Kennedy Martinez APRN.SPRING LAYER Service: ? Author Type: Nurse Optical Goods Drill Operator Type: Anesthesia Procedure Notes Filed: 06/25/2022 8:05 AM Note Text: ANESTHESIOLOGY PROCEDURE NOTE PIV General Information Procedure Start Time/Medication Administration: 06/25/2022 8:04 AM Patient Location: OR Staffing SPRING LAYER: Emily Nieto APRN.SPRING LAYER Performed by: TARA Preparation Sterility Preparation: hand hygiene performed prior to procedure, surgical cap used, mask used, skin prep agent completely dried prior to procedure Site Prep: alcohol Procedure Details Indication: need for IV access Needle Size/Type: 16 gauge angiocath Orientation: Right Location: Hand SIGNATURE: Kennedy Martinez APRN.CRNA PATIENT NAME: Milton Friend DATE: June 25, 2022 TIME: 8:04 AM CSN: [id number] [facility] 06-25-2022 Note HNO ID: [id number] Author: Kennedy Martinez APRN.CRNA Service: ? Author Type: Nurse Optical Goods Drill Operator Type: Anesthesia Procedure Notes Filed: 06/25/2022 8:04 AM Note Text: ANESTHESIOLOGY PROCEDURE NOTE Airway General Information Procedure Start Time/Medication Administration: 06/25/2022 7:51 AM Patient location during procedure: OR Timeout Performed Pre-procedure: timeout performed Consent Obtained: Yes Patient identity confirmed: arm band, care steam press operator and patient Staffing SPRING LAYER: Kennedy Martinez APRN.SPRING LAYER Performed by: TARA Indications and Patient Condition Indications for airway management: anesthesia Preoxygenated: yes anesthesia circuit Method: asleep Difficult Mask: No Airway Accessory: oral airway Final Airway Details Final airway type: endotracheal airway Final Endotracheal Airway: ETT Cuffed: yes Successful intubation technique: video laryngoscopy Devices used: [employer] Mobile [employer] Endotracheal tube insertion site: oral Blade size: #4 ETT size (mm): 7.0 Measurement (cm): 22 Placement verified by: capnometry Cormack-Lehane Classification: grade I - full view of glottis Number of attempts at approach: 1 Failed airway: no Unrecognized esophageal intubation: no Airway not difficult SIGNATURE: Kennedy Martinez APRN.CRNA PATIENT NAME: Milton Friend DATE: June 25, 2022 TIME: 8:03 AM CSN: [id number] [facility] 06-22-2022 Note HNO ID: [id number] Author: Pedro Aranda MD Service: ? Author Type: Physician Type: Progress Notes Filed: 06/22/2022 2:25 PM Note Text: [facility] Department of Cardiovascular Medicine SECTION OF CLINICAL CARDIOLOGY OUTPATIENT VISIT DATE June 22, 2022 OUTPATIENT VISIT TYPE CONSULTATION PRIMARY CARE PHYSICIAN: Abril Yeboah MD [address] [id number] REFERRING PHYSICIAN Odessa Terry [address] [facility] [address] CHIEF COMPLAINT: No chief complaint on file. [...] black stools M (more content not included)... [facility] 06-22-2022 Note HNO ID: [id number] Author: Dulce Maria Isabel RN Service: ? [...] discussed with Physician, nurse practitioner or Physician carpenter assistant upon discharge Instructions for transmitting EKG to Monitoring Center 3 month follow up instructions Contact number for information and questions Patient Evaluation: Verbalizes understanding Follow Up Plan: Follow up as directed by . Supplemental Material Given: Written Material Patient education regarding radiation exposure. Instructed By Dulce Maria Isabel RN. In Department of CARDIOLOGY. [facility] 06-22-2022 Instructions Pedro Aranda MD - 06/22/2022 2:07 PM EDT Proceed with afb ablation and watchman documented in this encounter [facility] 06-22-2022 Note Education (EPSMN) MILTON FRIEND ([id number]) 1960 M Date Time Provider Department 06/22/22 [...] Unknown Date Reviewed: 04/19/2022 Reviewed by: Krystle Galarza, REBECCA - Fully Assessed Prescriptions as of 06/22/2022 [...] Status:Closed by DULCE MARIA CARABALLO on 06/22/22 [facility] 06-22-2022 History of Present illness Narrative Images from the original note were not included. [facility] Department of Cardiovascular Medicine SECTION OF CLINICAL CARDIOLOGY OUTPATIENT VISIT DATE June 22, 2022 OUTPATIENT VISIT TYPE CONSULTATION PRIMARY CARE PHYSICIAN: Abril Yeboah MD [address] [place] [address] REFERRING PHYSICIAN Odessa Terry [address] [facility] [address] CHIEF COMPLAINT: No chief complaint on file. [...] A. fib ablation 1. Paroxysmal atrial fibrillation [id number] 2 score of 3 (history of hypertension, [...] Department of Cardiovascular Medicine [facility] [place] [facility] [address] [place] [address] Office Office Appointments: [phone] documented in this encounter [facility] 06-22-2022 History of Present illness Narrative [...] discussed with Physician, nurse practitioner or Physician carpenter assistant upon discharge Instructions for transmitting EKG to Monitoring Center 3 month follow up instructions Contact number for information and questions Patient Evaluation: Verbalizes understanding Follow Up Plan: Follow up as directed by MD. Supplemental Material Given: Written Material Patient education regarding radiation exposure. Instructed By Dulce Maria Isabel RN. In Department of CARDIOLOGY. documented in this encounter [facility] 06-13-2022 Miscellaneous Notes Reviewed with Dr. Terry. Dr. Terry advised Mr. Friend does not need to have his pre procedure appointments or procedure rescheduled. Dr. Terry advised to cancel the covid test scheduled on 06/22/22. EP lab notified by this message. Patient contacted and will attend appointments as scheduled. Sasha Colunga Electronically signed by Sasha [facility] at 06/13/2022 9:32 AM EDT Images from the original note were not included. Electronically signed by Sasha [facility] at 06/13/2022 9:32 AM EDT Mr. Friend called to report he was unable to obtain a PCR COVID test yesterday, so he will need to reschedule his ablation scheduled at the end of May as he will not be outside of the 10 day quarantine. Please contact the patient to reschedule. Thank you Sasha Electronically signed by Sasha [facility] at 06/12/2022 10:07 AM EDT documented in this encounter [facility] 06-11-2022 Miscellaneous Notes Patient called to report he is on vacation and home tested positive for COVID He is scheduled for OPD visits on 04/25/22 and watchman/PVI on 06/25/22. Spoke to EP lab nursing scheduler who advised the patient should have formal [...] canceled a scheduled on 06/22/22 per protocol. Sahsa [facility] Electronically signed by Sasha [facility] at 06/11/2022 11:58 AM EDT documented in this encounter [facility] 05-14-2022 Miscellaneous Notes Patient returned call [...] Odessa Terry MD documented in this encounter [facility] 05-04-2022 Miscellaneous Notes Patient calling Dr. Terry's office to advise he wishes to move forward with scheduling ablation and watchman procedure. Dr. Terry will be notified and will send scheduling order to the EP lab. Sasha Colunga documented in this encounter [facility] 01-29-2022 History of Present illness Narrative ecj documented in this encounter [facility] 01-29-2022 History of Present illness Narrative Images from the original note were not included. [facility] Department of Cardiovascular Medicine [facility] OUTPATIENT VISIT DATE January 29, 2022 OUTPATIENT VISIT TYPE Established Patient PRIMARY CARE PHYSICIAN: Abril Yeboah MD [address] [id number] REFERRING PHYSICIAN: Milton Alberts (José) [address] [facility] [address] CHIEF COMPLAINT: palpitations HISTORY OF PRESENT ILLNESS: [...] Department of Cardiovascular Medicine [facility] [place] [facility] Cardiology [address] [place] [address] 2[address] [place] [address] documented in this encounter [facility] 12-13-2021 Note HNO ID: [id number] Author: Ita Pabon RN Service: ? Author Type: Registered Nurse Type: Nursing Progress Note Filed: 12/13/2021 10:23 AM Note Text: Discharge instructions given to patient and . [facility] 05-31-2021 Note HNO ID: [id number] Author: Venessa Theodore (Store Leader) Service: Pharmacy Author Type: ? Type: Plan [...] or your Primary Care Provider. Venessa Theodore (Store Leader) PAGER: [phone] May 31, 2021 11:04 AM [facility] 05-31-2021 Note HNO ID: [id number] Author: Ita Pabon RN Service: ? Author Type: Registered Nurse Type: Nursing Progress Note Filed: 05/31/2021 12:54 PM Note Text: Discharge instructions given to patient and . [facility] Evaluation + Plan note No data available for this section [facility] Surgery [place] Evaluation note Diagnosis Paroxysmal atrial fibrillation (HCC)- Primary Atrial fibrillation Primary hypertension Unspecified essential hypertension [facility] Diagnosis Persistent atrial fibrillation (HCC)- Primary Atrial fibrillation Primary hypertension Unspecified essential hypertension [facility] Diagnosis Persistent atrial fibrillation (HCC)- Primary Atrial fibrillation [facility] Diagnosis Preop cardiovascular exam- Primary Pre-operative cardiovascular examination Paroxysmal atrial fibrillation (HCC) [I48.0 (ICD-10-CM)] Atrial fibrillation 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) [I61.2 (ICD-10-CM)] Atrial fibrillation, unspecified type (HCC) documented in this encounter [facility] note* Diagnosis Atrial fibrillation, unspecified type (HCC)- Primary Atrial fibrillation, unspecified type (HCC) documented in this encounter [facility] note* Diagnosis Paroxysmal atrial fibrillation (HCC) [I48.0 (ICD-10-CM)]- Primary Atrial fibrillation documented in this encounter [facility] note* Diagnosis Persistent atrial fibrillation (HCC)- Primary Atrial fibrillation documented in this encounter [facility] note* Diagnosis Atrial fibrillation, persistent (HCC)- Primary Atrial fibrillation documented in this encounter [facility] note* Diagnosis Persistent atrial fibrillation (HCC) Atrial fibrillation documented in this encounter [facility] note* Diagnosis 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) [I61.2 (ICD-10-CM)]- Primary Stroke due to intracerebral hemorrhage (HCC) Intracerebral hemorrhage Persistent atrial fibrillation (HCC) Atrial fibrillation documented in this encounter [facility] Discharge instructions No data available for this section [facility] No data available for this section [facility] Reason for referral (narrative)* Outpatient Procedure (Routine) - Pending Review Specialty Diagnoses / Procedures Referred By Deysi saha Referred To Contact [facility] Diagnoses Persistent atrial fibrillation (HCC) Procedures ECHO TRANSESOPHAGEAL ECHO TRANSESOPHAG R-T 2D W/PRB IMG ACQUISJ I&R Mara, Odessa Lucero MD [address] [place] [address] [address] [place] [address] Referral ID Status Reason Start Date Expiration Date Visits Requested Visits Authorized [id number] Pending Review Auto-Generat ed Referral 05/14/2022 05/14/2023 1 1 * Outpatient Procedure (Routine) - Pending Review Specialty Diagnoses / Procedures Referred By Deysi saha Referred To Contact [facility] Diagnoses Persistent atrial fibrillation (HCC) Procedures ECG COMPLETE ECG ROUTINE ECG W/LEAST 12 LDS W/I&R Odessa Terry MD [address] [place] [address] [facility] [address] [place] [phone] Referral ID Status Reason Start Date Expiration Date Visits Requested Visits Authorized [id number] Pending Review Auto-Generat ed Referral 05/14/2022 05/14/2023 1 1 [facility] for referral (narrative)* Outpatient Procedure (Routine) - Pending Review Specialty Diagnoses / Procedures Referred By Contac t Referred To Contact [facility] Diagnoses Persistent atrial fibrillation (HCC) Procedures ECHO TRANSESOPHAGEAL ECHO TRANSESOPHAG R-T 2D W/PRB IMG ACQUISJ I&R Polly Alvarez APRN.SOCIAL SERVICES TECHNICIAN [address], [address] [place] [phone] [address] [place] [address] [place] [address] Referral ID Status Reason Start Date Expiration Date Visits Requested Visits Authorized [id number] Pending Review Auto-Generat ed Referral 06/26/2022 06/26/2023 1 1 * Outpatient Procedure (Routine) - Pending Review Specialty Diagnoses / Procedures Referred By Contac t Referred To Contact [facility] Diagnoses Persistent atrial fibrillation (HCC) Procedures ECG COMPLETE ECG ROUTINE ECG W/LEAST 12 LDS W/I&R Polly Alvarez APRN.SOCIAL SERVICES TECHNICIAN [address] [place] [address] [address] [place] [address] Referral ID Status Reason Start Date Expiration Date Visits Requested Visits Authorized [id number] Pending Review Auto-Generat ed Referral 06/26/2022 06/26/2023 1 1 * Outpatient Procedure (Routine) - Pending Review Specialty Diagnoses / Procedures Referred By Contac t Referred To Contact [facility] Diagnoses Persistent atrial fibrillation (HCC) Procedures ECHO TRANSESOPHAGEAL ECHO TRANSESOPHAG R-T 2D W/PRB IMG ACQUISJ I&R Polly Alvarez APRN.SOCIAL SERVICES TECHNICIAN [address], [employer] [address] [address] [place] [address] [facility] [address] [place] [address] Referral ID Status Reason Start Date Expiration Date Visits Requested Visits Authorized [id number] Pending Review Auto-Generat ed Referral 06/26/2022 06/26/2023 1 1 * Outpatient Procedure (Routine) - Pending Review Specialty Diagnoses / Procedures Referred By Deysi t Referred To Contact [facility] Diagnoses Persistent atrial fibrillation (HCC) Procedures ECG COMPLETE ECG ROUTINE ECG W/LEAST 12 LDS W/I&R Polly Alvarez APRN.SOCIAL SERVICES TECHNICIAN [address], [employer] [address] [place] [address] [facility] [address] [place] [address] Referral ID Status Reason Start Date Expiration Date Visits Requested Visits Authorized [id number] Pending Review Auto-Generat ed Referral 06/26/2022 06/26/2023 1 1 * Outpatient Procedure (Routine) - Pending Review Specialty Diagnoses / Procedures Referred By Contac t Referred To Contact [facility] Diagnoses Persistent atrial fibrillation (HCC) Procedures ECHO ECHO TTHRC R-T 2D W/WOM-MODE COMPL SPEC&COLR D Polly Alvarez APRN.SOCIAL SERVICES TECHNICIAN [address], [address] [place] [address] [facility] [place] [address] [phone] Referral ID Status Reason Start Date Expiration Date Visits Requested Visits Authorized [id number] Pending Review Auto-Generat ed Referral 06/26/2022 06/26/2023 1 1 [facility] for referral (narrative)* Outpatient Procedure (Routine) - Pending Review Specialty Diagnoses / Procedures Referred By Deysi saha Referred To Contact [facility] Diagnoses Atrial fibrillation, persistent (HCC) Procedures ECHO TRANSESOPHAGEAL ECHO TRANSESOPHAG R-T 2D W/PRB IMG ACQUISJ I&R Odessa Terry MD [address] [place] [address] [facility] [place] [phone] Referral ID Status Reason Start Date Expiration Date Visits Requested Visits Authorized [id number] Pending Review Auto-Generat ed Referral 10/04/2022 10/04/2023 1 1 [facility] for visit Narrative* Diagnostic Procedure Only (Routine) - Closed Specialty Diagnoses / Procedures Referred By Deysi saha Referred To Contact Cardiology / [facility] [place] Diagnoses DX 3-4 MONTH PVI+WATCHMAN F/U AFIB W EKG, JOSE Procedures TRANSESOPHAGEAL ECHO Odessa Terry MD [address] [place] [address] Card Function [facility] [address] [place] [address] Referral ID Status Reason Start Date Expiration Date Visits Re quested Visits Authorized [id number] Closed 10/04/2022 01/02/2023 1 1 [facility] Summary Purpose Family History No Family History Records FoundNo Family History Records FoundNo Family History Records FoundNo Family History Records Found No data available for this section No Family History Records Found Advance Directives No Advanced Directives Records FoundDocuments on File Type Date Recorded Patient Manager Assurance Expl anation Advance Directive(s) 12/11/2021 1:47 PM Advance Directive(s) 05/29/2021 9:08 AM Documents on File Type Date Recorded Patient Manager Assurance Expl anation Advance Directive(s) 12/11/2021 1:47 PM [...] INTRAVENOUS, X (OR/PROCEDURE) PRN, Starting on Chrissy 12 at 1022, Until Chrissy 10/04/22 at 1028, [...] section and content) DATE CREATED AUTHOR 12/13/2021 [facility] DATE CREATED AUTHOR AUTHOR'S ORGANIZ ATION 03/14/2023 [facility] DATE CREATED AUTHOR AUTHOR'S ORGANIZ ATION 06/15/2023 [facility] DATE CREATED AUTHOR AUTHOR'S ORGANIZ ATION 09/14/2023 [facility] EPIC DATE CREATED AUTHOR AUTHOR'S ORGANROBERT ATION 05/12/2024 [place] [facility] Source Comments (unrecognize d section and content) In the event this informatio n is protected by the Federal Confidentiality of Alcohol and Drug Abuse Patient Records regulations: The Federal rules restrict any use of the information to criminally investigate or prosecute any alcohol or drug abuse patient.[facility] the event this information is protected by the Federal Confidentiality of Alcohol and Drug Abuse Patient Records regulations: The Federal rules restrict any use of the information to criminally investigate or prosecute any alcohol or drug abuse patient.[facility] the event this information is protected by the Federal Confidentiality of Alcohol and Drug Abuse Patient Records regulations: The Federal rules restrict any use of the information to criminally investigate or prosecute any alcohol or drug abuse patient.[facility] the event this information is protected by the Federal Confidentiality of Alcohol and Drug Abuse Patient Records regulations: The Federal rules restrict any use of the information to criminally investigate or prosecute any alcohol or drug abuse patient.[facility]In the event this information is protected by the Federal Confidentiality of Alcohol and Drug Abuse Patient Records regulations: The Federal rules restrict any use of the information to criminally investigate or prosecute any alcohol or drug abuse patient.[facility] HospitalIn the event this information is protected by the Federal Confidentiality of Alcohol and Drug Abuse Patient Records regulations: The Federal rules restrict any use of the information to criminally investigate or prosecute any alcohol or drug abuse patient.[facility] HospitalIn the event this information is protected by the Federal Confidentiality of Alcohol and Drug Abuse Patient Records regulations: The Federal rules restrict any use of the information to criminally investigate or prosecute any alcohol or drug abuse patient.[facility] HospitalIn the event this information is protected by the Federal Confidentiality of Alcohol and Drug Abuse Patient Records regulations: The Federal rules restrict any use of the information to criminally investigate or prosecute any alcohol or drug abuse patient.[facility] HospitalIn the event this information is protected by the Federal Confidentiality of Alcohol and Drug Abuse Patient Records regulations: The Federal rules restrict any use of the information to criminally investigate or prosecute any alcohol or drug abuse patient.[facility] HospitalIn the event this information is protected by the Federal Confidentiality of Alcohol and Drug Abuse Patient Records regulations: The Federal rules restrict any use of the information to criminally investigate or prosecute any alcohol or drug abuse patient.[facility] HospitalIn the event this information is protected by the Federal Confidentiality of Alcohol and Drug Abuse Patient Records regulations: The Federal rules restrict any use of the information to criminally investigate or prosecute any alcohol or drug abuse patient.[facility] HospitalIn the event this information is protected by the Federal Confidentiality of Alcohol and Drug Abuse Patient Records regulations: The Federal rules restrict any use of the information to criminally investigate or prosecute any alcohol or drug abuse patient.[facility] HospitalIn the event this information is protected by the Federal Confidentiality of Alcohol and Drug Abuse Patient Records regulations: The Federal rules restrict any use of the information to criminally investigate or prosecute any alcohol or drug abuse patient.[facility] HospitalIn the event this information is protected by the Federal Confidentiality of Alcohol and Drug Abuse Patient Records regulations: The Federal rules restrict any use of the information to criminally investigate or prosecute any alcohol or drug abuse patient.[facility] HospitalIn the event this information is protected by the Federal Confidentiality of Alcohol and Drug Abuse Patient Records regulations: The Federal rules restrict any use of the information to criminally investigate or prosecute any alcohol or drug abuse patient.[facility] HospitalIn the event this information is protected by the Federal Confidentiality of Alcohol and Drug Abuse Patient Records regulations: The Federal rules restrict any use of the information to criminally investigate or prosecute any alcohol or drug abuse patient.[facility] HospitalIn the event this information is protected by the Federal Confidentiality of Alcohol and Drug Abuse Patient Records regulations: The Federal rules restrict any use of the information to criminally investigate or prosecute any alcohol or drug abuse patient.[facility] HospitalIn the event this information is protected by the Federal Confidentiality of Alcohol and Drug Abuse Patient Records regulations: The Federal rules restrict any use of the information to criminally investigate or prosecute any alcohol or drug abuse patient.[facility] HospitalIn the event this information is protected by the Federal Confidentiality of Alcohol and Drug Abuse Patient Records regulations: The Federal rules restrict any use of the information to criminally investigate or prosecute any alcohol or drug abuse patient.[facility] HospitalIn the event this information is protected by the Federal Confidentiality of Alcohol and Drug Abuse Patient Records regulations: The Federal rules restrict any use of the information to criminally investigate or prosecute any alcohol or drug abuse patient.[facility] HospitalIn the event this information is protected by the Federal Confidentiality of Alcohol and Drug Abuse Patient Records regulations: The Federal rules restrict any use of the information to criminally investigate or prosecute any alcohol or drug abuse patient.[facility] HospitalIn the event this information is protected by the Federal Confidentiality of Alcohol and Drug Abuse Patient Records regulations: The Federal rules restrict any use of the information to criminally investigate or prosecute any alcohol or drug abuse patient.[facility] HospitalIn the event this information is protected by the Federal Confidentiality of Alcohol and Drug Abuse Patient Records regulations: The Federal rules restrict any use of the information to criminally investigate or prosecute any alcohol or drug abuse patient.[facility] HospitalIn the event this information is protected by the Federal Confidentiality of Alcohol and Drug Abuse Patient Records regulations: The Federal rules restrict any use of the information to criminally investigate or prosecute any alcohol or drug abuse patient.[facility] HospitalIn the event this information is protected by the Federal Confidentiality of Alcohol and Drug Abuse Patient Records regulations: The Federal rules restrict any use of the information to criminally investigate or prosecute any alcohol or drug abuse patient.[facility] HospitalIn the event this information is protected by the Federal Confidentiality of Alcohol and Drug Abuse Patient Records regulations: The Federal rules restrict any use of the information to criminally investigate or prosecute any alcohol or drug abuse patient.[facility] HospitalIn the event this information is protected by the Federal Confidentiality of Alcohol and Drug Abuse Patient Records regulations: The Federal rules restrict any use of the information to criminally investigate or prosecute any alcohol or drug abuse patient.[facility] HospitalIn the event this information is protected by the Federal Confidentiality of Alcohol and Drug Abuse Patient Records regulations: The Federal rules restrict any use of the information to criminally investigate or prosecute any alcohol or drug abuse patient.[facility] HospitalIn the event this information is protected by the Federal Confidentiality of Alcohol and Drug Abuse Patient Records regulations: The Federal rules restrict any use of the information to criminally investigate or prosecute any alcohol or drug abuse patient.[facility] HospitalIn the event this information is protected by the Federal Confidentiality of Alcohol and Drug Abuse Patient Records regulations: The Federal rules restrict any use of the information to criminally investigate or prosecute any alcohol or drug abuse patient.[facility] HospitalIn the event this information is protected by the Federal Confidentiality of Alcohol and Drug Abuse Patient Records regulations: The Federal rules restrict any use of the information to criminally investigate or prosecute any alcohol or drug abuse patient.[facility] Reason for Visit (unrecogniz ed section and content) Reason Comments Follow Up JOSE, CVN Reason Comments Patient Update Reason Comments Schedule Surgery PVI ablation+Watchma n Reason Comments Patient Update Reschedule procedure request Reason Comments Patient Education EPS-PVI + Watchman Reason Comments transmitter Reason Comments Follow Up Phone Call Relate care dischar ge follow [id number] clear Reason Comments Patient Update COVID Reason Comments Reminder Call jose Reason Comments Refill Request Reason Comments Patient Question Patient left a VM on Device Clinic line, want to know the model number of the Watchman that was implanted in the fall. Please call the patient at [phone] Reason Comments Patient Question Reason Comments Reminder Call Transesophageal Echo 04/16/23 Reason Comments Patient Question [facility] Care Teams (unrecognized sec tion and content) Inspector Bullet Slugs Relationship Specialty Start Date End Date Abril Yeboah MD PCP - General Family Practice 11/09/13 [place] [address] [place], [place] [id number] Primary Staff Physician Cardiology 10/05/21 Inspector Bullet Slugs Relationship Specialty Start Date End Date Abril Yeboah MD PCP - General Family Practice 11/09/13 Milton Alberts MD [address] [place], [place] [id number] Primary Staff Physician Cardiology 10/05/21 Inspector Bullet Slugs Relationship Specialty Start Date End Date Abril Yeboah MD PCP - General Family Practice 11/09/13 [place] [address] [place] [address] Primary Staff Physician Cardiology 10/05/21 Inspector Bullet Slugs Relationship Specialty Start Date End Date Abril Yeboah MD PCP - General Family Practice 11/09/13 [place] [address] Primary Staff Physician Cardiology 10/05/21 Inspector Bullet Slugs Relationship Specialty Start Date End Date Abril Yeboah MD PCP - General Family Practice 11/09/13 [place] [address] Primary Staff Physician Cardiology 10/05/21 Inspector Bullet Slugs Relationship Specialty Start Date End Date Abril Yeboah MD PCP - General Family Practice 11/09/13 [place] [address] Primary Staff Physician Cardiology 10/05/21 Inspector Bullet Slugs Relationship Specialty Start Date End Date Abril Yeboah MD PCP - General Family Practice 11/09/13 [place] [address] Primary Staff Physician Cardiology 10/05/21 Inspector Bullet Slugs Relationship Specialty Start Date End Date Abril Yeboah MD PCP - General Family Practice 11/09/13 [place] [address] Primary Staff Physician Cardiology 10/05/21 Inspector Bullet Slugs Relationship Specialty Start Date End Date Abril Yeboah MD PCP - General Family Practice 11/09/13 [place] [address] Primary Staff Physician Cardiology 10/05/21 Inspector Bullet Slugs Relationship Specialty Start Date End Date Abril Yeboah MD PCP - General Family Practice 11/09/13 [place] [address] Primary Staff Physician Cardiology 10/05/21 Inspector Bullet Slugs Relationship Specialty Start Date End Date Abril Yeboah MD PCP - General Family Practice 11/09/13 [place] [address] Primary Staff Physician Cardiology 10/05/21 Inspector Bullet Slugs Relationship Specialty Start Date End Date Abril Yeboah MD PCP - General Family Medicine 11/09/13 [place] [address] Primary Staff Physician Cardiology 10/05/21 Inspector Bullet Slugs Relationship Specialty Start Date End Date Abril Yeboah MD PCP - General Family Medicine 11/09/13 [place] [address] Primary Staff Physician Cardiology 10/05/21 Inspector Bullet Slugs Relationship Specialty Start Date End Date Abril Yeboah MD PCP - General Family Medicine 11/09/13 [place] [address] Primary Staff Physician Cardiology 10/05/21 Inspector Bullet Slugs Relationship Specialty Start Date End Date Abril Yeboah MD PCP - General Family Medicine 11/09/13 [place] [address] Primary Staff Physician Cardiology 10/05/21 Inspector Bullet Slugs Relationship Specialty Start Date End Date Abril Yeboah MD PCP - General Family Medicine 11/09/13 [place] [address] Primary Staff Physician Cardiology 10/05/21 Inspector Bullet Slugs Relationship Specialty Start Date End Date Abril Yeboah MD PCP - General Family Medicine 11/09/13 [place] [address] Primary Staff Physician Cardiology 10/05/21 Inspector Bullet Slugs Relationship Specialty Start Date End Date Abril Yeboah MD PCP - General Family Medicine 11/09/13 [place] [address] Primary Staff Physician Cardiology 10/05/21 Inspector Bullet Slugs Relationship Specialty Start Date End Date Abril Yeboah MD PCP - General Family Medicine 11/09/13 [place] [address] Primary Staff Physician Cardiology 10/05/21 FOR RECORDS [...] BE BASED ON THE PRIMARY CLINICAL RECORDS. [facility] [employer] [facility]. provides no warranty or guarantee of the accuracy or completeness of information in this document.
[2024-06-24 07:11] VITALS: BP 170/104; PULSE 64; TEMP 35.9; O2SAT 97; BMI 33.2
[2024-06-24] MEDS: LACTATED RINGER'S SOLUTION 1,000 ML 50 ML IV (07:25)
[2024-06-24 08:48] VITALS: BP 129/77; PULSE 60; O2SAT 96
[2024-06-24 08:55] VITALS: BP 148/91; PULSE 62; O2SAT 99
== END 2024-06-24 09:16 | disposition home or self-care (01) ==
PROVIDERS: PCP Family Medicine; Visit Provider Surgery
PROC: (CPT 45378; principal; 2024-06-24 07:55)
DX: R19.5 Other fecal abnormalities (principal); K57.30 Diverticulosis of large intestine without perforation or abscess without bleeding; I10 Essential (primary) hypertension; I48.91 Unspecified atrial fibrillation; K21.9 Gastro-esophageal reflux disease without esophagitis; E78.5 Hyperlipidemia, unspecified; G47.33 Obstructive sleep apnea (adult) (pediatric); Z86.73 Personal history of transient ischemic attack (TIA), and cerebral infarction without residual deficits
CPT/HCPCS: 45378; J2704

== ENCOUNTER 2025-02-17 07:55 | Outpatient (OUT) | payer MEDICARE, SELFPAY ==
[2025-02-17 08:25] LABS: Basophils Percent Auto 0.5 % (0.2-2.0); Eosinophils Absolute Auto 0.3 10^3/uL (0.0-0.7); Eosinophils Percent Auto 3.7 % (0.9-7.0); Hematocrit 43.4 % (42.0-54.0); Hemoglobin 15.4 g/dL (14.0-18.0); Immature Granulocytes Abs Auto 0.06 10^3/uL (0.00-0.03); Immature Granulocytes Pct Auto 0.8 % (0.0-0.5); Lymphocytes Absolute Auto 2.4 10^3/uL (1.2-3.8); Mean Corpuscular HGB Conc 35.5 g/dL (29.9-35.2); Mean Corpuscular Hemoglobin 30.5 pg (25.9-34.0); Mean Corpuscular Volume 85.9 fL (80.0-94.0); Mean Platelet Volume 10.3 fL (9.5-13.5); Monocytes Absolute Auto 0.6 10^3/uL (0.3-0.8); Monocytes Percent Auto 7.5 % (1.7-12.0); Neutrophils Absolute Auto 4.6 10^3/uL (1.4-6.5); Neutrophils Percent Auto 57.5 % (43.0-75.0); Platelet Count 279 10^3/uL (150-450); Red Blood Count 5.05 10^6/uL (4.70-6.10); Red Cell Distribution Width 12.3 % (11.0-15.0); White Blood Count 7.9 10^3/uL (4.0-11.0)
[2025-02-17 09:09] LABS: Alanine Aminotransferase 31 U/L (16-63); Albumin Globulin Ratio 1.4; Albumin Level 3.9 g/dL (3.4-5.0); Alkaline Phosphatase 65 U/L (46-116); Anion Gap 10.9; Aspartate Amino Transferase 18 U/L (15-37); BUN Creatinine Ratio 17.9; Bilirubin Total 0.6 mg/dL (0.2-1.0); Carbon Dioxide 32.8 mmol/L (21.0-32.0); Chloride 104 mmol/L (98-107); Chol HDL Ratio 3.4; Cholesterol 199 mg/dL (<=200); Estimated GFR (African America >60 (>=60 mL/min/1.73m^2); Estimated GFR (Non-African Ame >60 (>=60 mL/min/1.73m^2); Free T3 3.02 pg/mL (2.18-3.98); Globulin 2.7 g/dL; Glucose 88 mg/dL (74-106); HDL Cholesterol 59 mg/dL (40-60); LDL Cholesterol Calculated 118.8 mg/dL; Potassium 3.7 mmol/L (3.5-5.1); Sodium 144 mmol/L (136-145); Thyroid Stimulating Hormone 2.828 uIU/mL (0.358-3.740); Total Protein 6.6 g/dL (6.4-8.2); Triglycerides 106 mg/dL (<=150); Uric Acid 7.3 mg/dL (3.5-7.2); VLDL CHOLESTEROL 21.2 mg/dL
[2025-02-17 09:21] LABS: Estimated Average Glucose 114 mg/dL; Glycohemoglobin A1C 5.6 % (4.5-6.2)
[2025-02-17 09:54] LABS: Prostate Specific Antigen Scrn 2.58 ng/mL (<=4.00)
[2025-02-18 04:07] LABS: Testosterone 521 ng/dL (264-916)
== END 2025-02-17 07:56 | disposition home or self-care (01) ==
LOC: LAB 08:00
PROVIDERS: PCP Family Medicine; Visit Provider Family Medicine
DX: Z00.00 Encounter for general adult medical examination without abnormal findings (principal); E78.5 Hyperlipidemia, unspecified; R73.09 Other abnormal glucose; M10.9 Gout, unspecified; E03.9 Hypothyroidism, unspecified; I10 Essential (primary) hypertension; Z12.5 Encounter for screening for malignant neoplasm of prostate; R53.83 Other fatigue; E55.9 Vitamin D deficiency, unspecified
CPT/HCPCS: 36415; 80053; 80061; 82306; 83036; 84403; 84436; 84443; 84481; 84550; 85025; G0103